=== PATIENT | female | born 1940 | race Caucasian/White ===

== ENCOUNTER 2017-06-27 07:06 | Outpatient (CLI) | payer MEDICARE, MEDICAID ==
--- NOTE | ~2017-06-27 | HEMODYNAMI ---
PATIENT:EUNICE IRELAND MEDICAL RECORD: [id number] : 38 LOCATION:[facility] ADMISSION DATE: 06/27/17 Generatedon:06/27/201710:04 Patient name: EUNICE IRELAND Patient #: [id number] SSN: : 1940 Date of study: 06/27/2017 Page: Of Hemodynamic Procedure Report Patient Data Patient Demographics Procedure consent was obtained First Name: EUNICE Gender: Female Last Name: SHU : 1940 Patient #: [id number] Age: 77 year(s) Race: Unknown Additional ID: [id number] Contact details [address]: [address] [place] [address] [facility] State: [place] City: [place] Zip code: [address] Admission Admission Data Admission Date: 06/27/2017 Admission Time: 7:06 Lab Results Lab Result Date: 06/27/2017 Lab Result Time: 0:00 Biochemistry Name Units Result Min Max BUN mg/dl 23 --(----)-* 7 18 Creatinine mg/dl 0.9 --(-*--)-- 0.6 1.3 CBC Name Units Result Min Max Hemoglobin g/dl 14.4 --(*---)-- 13.5 17.5 Procedure Procedure Types Cath Procedure Diagnostic Procedure Right Heart RHC and LHC w/Coronaries Miscellaneous Procedures Moderate Sedation up to 30 minutes Procedure Description Procedure Date Procedure Date: 06/27/2017 Procedure Start Time: 9:24 Procedure End Time: 10:03 Procedure Staff Name Function Chandra Calvillo MD Performing Physician Agnes Cochran RT Scrub Elliot Zamarripa RN Nurse Tad Mandujano RT Monitor Procedure Data Cath Procedure Fluoroscopy Diagnostic fluoroscopy Total fluoroscopy Time: 6.5 time: 6.5 min min Diagnostic fluoroscopy Total fluoroscopy dose: 372 dose: 372 mGy mGy Contrast Material Contrast Material Type Amount (ml) Isovue 300 48 Entry Location Entry Primary Successful Side Size Upsize Upsize Entry Closure Duque ccessful Closure Location (Fr) 1 (Fr) 2 (Fr) Remarks Device Remarks Femoral Right 7 Fr Manual vein Short Compression Femoral Right 5 Fr Exoseal artery Estimated blood loss: 10 ml Diagnostic catheters Device Type Used For End Catheter Placement Aiken Lifesciences 7Fr Procedure Berry Thermodilution aura Cordis 5Fr JL 4.0 Procedure Catheter (MP) Cordis 5Fr 3DRC Catheter Procedure (MP) Cordis 5Fr Pigtail Procedure Catheter (MP) Procedure Complications No complications Procedure Medications Medication Administration Route Dosage Oxygen NC 2 l/min Lidocaine 2% added to field 20 Heparin Flush Bag added to field 2 bags (1000units/500ml NS) 0.9% NaCl I.V. 100 ml/hr Versed I.V. 1 mg Fentanyl I.V. 25 mcg Hemodynamics Rest HGB: 14.4 (g/dl) Heart Rate: 90 (bpm) Oxygen Saturations Time Location Saturations Hgb (g/dl) O2 Content Use (%) (ml/L) 9:34 PCW 81.3 9:35 AO 99 9:39 RV 69.2 9:40 RA 70.9 Pressure Samples Time Site Value (mmHg) Purpose Heart Use Rate(bpm) 9:35 PA 54/21(34) Snapshot 68 9:39 RA 12/12(8) Snapshot 70 9:43 AO 137/69(95) Snapshot 72 9:47 AO 139/72(99) Snapshot 75 9:50 LV 153/9,21 EDP 73 9:51 AO 144/68(100) Pullback 75 9:51 LV 137/20,19 Pullback 75 Gradients Valve Time Site 1 Site 2 Mean SEP/DFP Peak To Heart Use (mmHg) (sec/min) Peak Rate (mmHg) (bpm) Aortic 9:51 LV AO 0 6 0 75 137/20,19 144/68(100) Thermodilution Cardiac Output Time Cardiac Output (l/min) Use 9:37 2.36 l/m 9:38 2.37 l/m Calculations Vascular Value Indexed CO SV CO CI Resistance (dyne) values (ml/beat) (l/min) (l/(min*m)) TSVR 3382.66 Thermal 32.85 2.37 SVR 3128.96 TPVR 1152.22 TPVR/TSVR 0.34 Source Thermal Systolic Diastolic Ejection Regurgitation SW SWI Vol. Vol. (%) (%) Right 12.33 Source Thermal Content (ml/l) O2 Difference (ml/l) O2 SA 193.88 SA-MV(AV) 55.03 O2 MV 138.85 PV-PA(VA) Valve P-P Mean Valve Index Valve Source Name Gradient Area Flow (cm2) Aortic 0 0 404.97 Thermal 0 0 Snapshots Thermal Samples Pre Cath Intra NCS Post Cath Vital Signs Time Heart Resp SPO2 etCO2 [id number] NIBP (mmHg) Rhythm Pain Sedation Rate (ipm) (%) (mmHg) (mmHg) Status Level (bpm) 9:20:28 76 20 99 0 0 133/89(107) NSR 0 (11) 10(A) , No pain 9:25:08 72 16 97 0 0 125/65(87) NSR 0 (11) 10(A) , No pain 9:29:53 71 14 97 0 0 116/58(90) NSR 0 (11) 9(A) , No pain 9:34:29 70 14 98 0 0 116/65(92) NSR 0 (11) 9(A) , No pain 9:39:03 106 20 98 0 0 119/74(93) NSR 0 (11) 9(A) , No pain 9:43:40 75 15 98 0 0 121/67(91) NSR 0 (11) 9(A) , No pain 9:48:16 75 15 98 0 0 124/69(94) NSR 0 (11) 10(A) , No pain 9:52:53 77 16 97 0 0 126/67(99) NSR 0 (11) 10(A) , No pain 9:57:27 85 23 97 0 0 141/84(113) NSR 0 (11) 10(A) , No pain 10:02:08 74 17 95 0 0 135/77(109) NSR 0 (11) 10(A) , No pain Medications Time Medication Route Dose Verified Delivered Reason Notes Effec tiveness by by 9:18:00 Oxygen NC 2 Chanrda Buffie used for l/min Karli Zamarripa RN procedure 9:18:09 Lidocaine 2% added 20ml Chandra Chandra for local to vial Karli Calvillo MD anesthetic field RAHMAN 9:18:17 Heparin Flush added 2 Chandra Chandra used for Bag to bags Karli Calvillo MD procedure (1000units/500ml field RAHMAN NS) 9:18:28 0.9% NaCl I.V. 100 Chandra Zarate Per ml/hr Karli Zamarripa RN physician 9:24:35 Versed I.V. 1 mg Chandra Zarate for Karli Zamarripa RN sedation 9:24:42 Fentanyl I.V. 25 Chandra Zarate for mcg Karli Zamarripa RN sedation Procedure Log Time Note 8:47:47 Tad Mandujano RT(R) sent for patient. Start room use. 8:47:47 Time tracking: Regular hours 8:47:51 Plan of Care:Hemodynamics will remain stable., Cardiac rhythm will remain stable., Comfort level will be maintained., Respiratory function will remain adequate., Patient/ family verbilizes understanding of procedure., Procedure tolerated without complication., Recovers from procedure without complications.. 9:05:16 Patient received from Pre/Post Procedure Room to CCL 1 Alert and oriented. Tansferred to table in Supine position. 9:05:17 Warm blankets applied, and jemal hugger turned on for patient comfort. 9:05:17 Correct patient and procedure confirmed by team. 9:05:19 Signed procedure consent form obtained from patient. 9:05:23 ECG and BP/O2 sat monitors applied to patient. 9:18:00 Oxygen 2 l/min NC was administered by Elliot Zamarripa RN; used for procedure; 9:18:09 Lidocaine 2% 20ml vial added to field was administered by Chandra Calvillo MD; for local anesthetic; 9:18:17 Heparin Flush Bag (1000units/500ml NS) 2 bags added to field was administered by Chandra Calvillo MD; used for procedure; 9:18:28 0.9% NaCl 100 ml/hr I.V. was administered by Elliot Zamarripa RN; Per physician; 9:19:40 Vital chart was started 9:19:41 Baseline sample Acquired. 9:19:46 Rhythm: sinus rhythm 9:19:47 Full Disclosure recording started 9:19:56 H&P Date Dictated: 06/20/2017 Within 30 days and on chart., H&P Addendum completed by physician on day of procedure. (MUST COMPLETE FOR ALL OUTPATIENTS). 9:19:57 Pre-procedure instructions explained to patient. 9:19:58 Pre-op teaching completed and patient verbalized understanding. 9:20:01 Family in waiting room. 9:20:02 Patient NPO since Midnight. 9:20:04 Is the patient allergic to Iodine/contrast media? No. 9:20:05 Is patient on blood thinner?Yes 9:20:08 ACC The patient was administered the following blood thiners within the last 24 hours: ACCPlavix 9:20:10 Patient diabetic? No. 9:20:12 Patient not . Patient is over age 55. 9:20:38 Previous problem with sedation/anesthesia? No ? 9:20:40 Snore? Yes 9:20:41 Sleep apnea? No 9:20:42 Deviated septum? No 9:20:43 Opens mouth fully? Yes 9:20:44 Sticks out tongue? Yes 9:20:45 Airway obstruction? No ? 9:20:47 Dentures? No ? 9:20:57 Pre procedure: right dorsailis pedis pulse 1+ Palpable, but thready & weak; easily obliterated 9:21:00 Patient pain scale 0/10 ?. 9:21:03 IV patent on arrival in left forearm with 0.9% NaCl at [facility]. 9:21:05 Lab results completed and on chart. 9:21:08 Right groin area was prepped with chlora-prep and draped in sterile fashion 9:21:09 Alarms reviewed by R. N. 9:21:10 Sharps counted by scrub and verified by R.N. 9:21:11 --------ALL STOP TIME OUT------ 9:21:12 Final Timeout: patient, procedure, and site verified with staff and physician. All members of the team are in agreement. 9:21:14 Right groin site verified by team. 9:21:16 Physical assessment completed. ASA score P 2 - A patient with mild systemic disease as per Chandra Calvillo MD. 9:21:19 Sedation plan: IV Moderate Sedation Versed, Fentanyl 9:24:26 Use device set Femoral Dx 9:24:28 Tegaderm 4 x 4 opened to sterile field. 9:24:29 Acist Hand Control opened to sterile field. 9:24:29 Acist Manifold opened to sterile field. 9:24:31 Acist Syringe opened to sterile field. 9:24:31 Bag Decanter opened to sterile field. 9:24:31 Medline Cath Pack opened to sterile field. 9:24:32 Terumo 5Fr [place] Sheath opened to sterile field. 9:24:32 [facility] 260cm J .035 wire opened to sterile field. 9:24:33 Diagnostic Infinity 5Fr Multipack catheter opened to sterile field. 9:24:35 Procedure started. 9:24:35 Versed 1 mg I.V. was administered by Elliot Zamarripa RN; for sedation; 9::42 Fentanyl 25 mcg I.V. was administered by Elliot Zamarripa RN; for sedation; 9:24:42 Local anesthetic to right femoral artery with Lidocaine 2% by Chandra Calvillo MD.INITIAL ACCESS ONLY 9:24:54 Terumo 7Fr [place] Sheath opened to sterile field. 9:25:47 Cook 4Fr Micropuncture Set ([id number]) opened to sterile field. 9:28:00 A 7 Fr Short sheath was inserted into the Right Femoral vein 9:28:53 Micropuncture wire damaged, new micropuncture kit opened. 9:28:56 Cook 4Fr Micropuncture Set ([id number]) opened to sterile field. 9:29:16 A 5 Fr sheath was inserted into the Right Femoral artery 9:29:41 A DeepRockDrive 7Fr Berry Thermodilution aura was advanced over the wire and used for Procedure. 9:31:19 Lab Result : BUN 23 mg/dl 9:31:19 Lab Result : Hemoglobin 14.4 g/dl 9:31:19 Lab Result : Creatinine 0.9 mg/dl 9:31:59 [facility] 150cm J .025 wire opened to sterile field. 9:32:23 .025 J Wire used to advance Berry. 9:33:09 Zero performed for pressure channel P1 9:34:38 PCW saturation: 81.3% 9:35:19 AO saturation: 99% 9:37:25 Thermodilution performed using a Aiken 131F7 7.0 Fr 19-22C 10.00 mL. Injectate temperature was 17.09 C, CO: 2.36 L/min, average CO: 2.36 L/min 9:38:16 Thermodilution performed using a Aiken 131F7 7.0 Fr 19-22C 10.00 mL. Injectate temperature was 17.07 C, CO: 2.37 L/min, average CO: 2.36 L/min 9:39:55 RV saturation: 69.2% 9:40:54 RA saturation: 70.9% 9:42:00 Right heart pressures and cardiac output were obtained. 9:42:09 Catheter removed. 9:42:23 A Cordis 5Fr JL 4.0 Catheter (MP) was advanced over the wire and used for Procedure. 9:44:06 LCA angiography performed. 9:45:13 Catheter exchanged over wire. 9:45:21 A Cordis 5Fr 3DRC Catheter (MP) was advanced over the wire and used for Procedure. 9:47:37 RCA angiography performed. 9:49:08 Catheter exchanged over wire. 9:49:13 A Cordis 5Fr Pigtail Catheter (MP) was advanced over the wire and used for Procedure. 9:51:01 LV angiography performed. 9:51:02 LV gram done using GIBSON 9:51:25 EF : 25 % 9:51:35 LV hemodynamics recorded. 9:51:42 Injector settings: Ml/sec: 12, Volume: 8, 9:51:54 Catheter exchanged over wire. 9:53:08 Sheath removed intact; hemostasis achieved with Exoseal to the Right Femoral artery. 9:53:14 Procedure ended.(Physican Out) 9:53:53 Fluoroscopy time 06.50 minutes. 9:53:58 Fluoroscopy dose: 372 mGy 9:53:58 Flurop Dose total: 372 9:54:19 Contrast amount:Isovue 300 48ml. 9:54:21 Sharps counted by scrub and verified by R.N. 9:55:58 Sheath removed intact; hemostasis achieved with Manual Compression to the Right Femoral vein. 9:56:38 Insertion/operative site no bleeding no hematoma. 9:57:54 Post-op/insertion site Right Femoral artery dressed using a 4 x 4 and Tegaderm. 9:58:00 Post-op/insertion site Right Femoral vein dressed using a 4 x 4 and Tegaderm. 9:58:01 Post Procedure Pulses reassessed and unchanged 9:58:04 Post-procedure physical assessment completed. ASA score P 2 - A patient with mild systemic disease as per Chandra Calvillo MD. 9:58:06 Post procedure rhythm: unchanged. 9:58:08 Estimated blood loss: 10 ml 9:58:10 Post procedure instruction explained to patient.Patient verbalizes understanding. 9:58:11 Patient needs reinforcement of post procedure teaching. 9:58:32 Procedure type changed to Cath procedure, Diagnostic procedure, Right Heart, RHC and LHC w/Coronaries, Miscellaneous Procedures, Moderate Sedation up to 30 minutes 9:58:37 Procedure Complication : No complications 9:59:06 Cordis 5Fr Exoseal opened to sterile field. 9:59:27 Procedure and supply charges have been captured, reviewed, submitted and are correct. 10:03:28 Vital chart was stopped 10:03:29 See physician's report for complete and final results. 10:03:34 Report given to PCU. 10:03:37 Patient transfered to PCU with Bed. 10:03:39 Procedure ended. 10:03:39 Full Disclosure recording stopped 10:04:08 End room use (Document Last) Device Usage Item Name Manufacture Quantity Catalog Hospital Part Current Minima l Lot# / Number Charge Number Stock Stock Serial# Code Tegaderm 4 x 4 3M 1 [id number] 057906 316181 5 Acist Hand Acist 1 98997 798635 856774 037219 5 Control [employer] Inc Acist Manifold Acist 1 54138 779892 195407 225736 5 Medical Systems Inc Acist Syringe Acist 1 78925 625585 659529 898994 20 Medical Systems Inc Bag Decanter Microtek 1 2002S 004643 27586 668362 5 Medical Inc. Medline Cath Cardinal 1 [id number] 540937 75474 735712 5 Pack Health Terumo 5Fr Terumo 1 IQP514 051777 040563 136270 [address] [place] [address] [facility] [address] [facility] 1 061104 008137 155935 651261 30 J .035 wire Diagnostic Cardinal 1 CT5163 486007 24233 310115 30 Infinity 5Fr Health Multipack catheter Terumo 7Fr Terumo 1 [id number] 144114 093299 068325 5 [place] Sheath Cook 4Fr Cook Medical 2 [id number] 689208 768669 079912 5 Micropuncture Set ([id number]) Aiken Aiken 1 131F7P [id number] 20969 069666 3 Lifesciences Lifesciences 7Fr Berry Thermodilution aura [facility] 150cm [facility] 1 554631 521840 406695 556813 2 J .025 wire Cordis 5Fr JL Cardinal 1 189727 5 4.0 Catheter Health () Cordis 5Fr Cardinal 1 302364 5 3DRC Catheter Health (MP) Cordis 5Fr Cardinal 1 302590 5 Pigtail Health Catheter (MP) Cordis 5Fr Cardinal 1 EX500 428591 418523 862966 10 [facility] Signature Audit [place] Stage Time Signature Unsigned Intra-Procedure 06/27/2017 Tad Mandujano 10:04:24 AM RT(R) Signatures Monitor : Tad Mandujano RT Signature : Date : Time : [address] [id number]
[2017-06-27] MEDS ORDERED: BENAZEPRIL HCL10 MG PO (07:13)
[2017-06-27] MEDS ORDERED: VISTARIL25 MG PO (07:14)
[2017-06-27] MEDS ORDERED: LIPITOR40 MG PO (07:14)
[2017-06-27] MEDS ORDERED: PLAVIX75 MG PO (07:14)
[2017-06-27] MEDS ORDERED: EPITOL200 MG PO (07:15)
[2017-06-27] MEDS ORDERED: COREG 3.1253.125 MG PO (07:15)
[2017-06-27] MEDS ORDERED: PROAIR HFA8.5 GM INH (07:15)
[2017-06-27 07:29] VITALS: BP 135/65; BMI 23.0
[2017-06-27 07:36] LABS: BASOPHILS 0.2 % (0-2); EOSINOPHILS 3.6 % (0-7); HEMATOCRIT 42.8 % (36.0-48.0); HEMOGLOBIN 14.4 g/dL (12-16); IMMATURE GRANULOCYTES 0.2 % (0-5); LYMPHOCYTES 26.3 % (15-50); MCH 33.1 pg (26.0-34.0); MCHC 33.6 g/dL (31.0-37.0); MCV 98.4 fL (80.0-100.0); MEAN PLATELET VOLUME 10.5 fL (7.4-10.4); MONOCYTES 10.6 % (2-11); NEUTROPHILS 59.1 % (40-80); PLATELET COUNT 162 10x3/uL (130-400); RBC 4.35 10x6/uL (4.00-5.40); RDW 12.6 % (11.5-14.5); WBC 5.6 10x3/uL (4.8-10.8)
[2017-06-27 08:23] LABS: CALCIUM 8.6 mg/dL (8.5-10.1); CARBON DIOXIDE 24.1 mmol/L (21.0-32.0); CREATININE - SERUM 0.9 mg/dL (0.6-1.3); POTASSIUM - SERUM 4.1 mmol/L (3.5-5.1)
--- NOTE | 2017-06-27 10:37 | NUR ---
DR. HOWE AT BEDSIDE SPEAKING WITH PT AND FAMILY. 2L NC, NO RESP DISTRESS NOTED. RIGHT GROIN 5F EXOSEAL CDI, NO BLEEDING OR HEMATOMA NOTED. NO C/O PAIN OR NAUSEA. VSS. CALL LIGHT WITHIN REACH.
--- NOTE | 2017-06-27 10:52 | NUR ---
2L NC, NO RESP DISTRESS NOTED. RIGHT GROIN 5F EXOSEAL CDI, NO BLEEDING OR HEMATOMA NOTED. C/O HIP PAIN, DR. HOWE ELEVATED HOB AND KNEES. NO OTHER C/O. SANDWICH TRAY GIVEN. VSS. WILL CONTINUE TO MONITOR.
--- NOTE | 2017-06-27 11:10 | NUR ---
1110 DRESSING TO RIGHT GROIN IS CDI, AREA IS SOFT AND NONTENDER. PT WITH KNEE FLEXED, INSTRUCTED PT TO KEEP RIGHT LEG STRAIGHT. VSS, NO FAMILY AT BEDSIDE, CALL LIGHT IS IN REACH.
--- NOTE | 2017-06-27 11:15 | NUR ---
1115 DR HOWE AT BEDSIDE, TALKING WITH PT. DR HOWE RAISED HOB 90 DEGREES, STATES PT CAN SIT UPRIGHT. REQUESTED APPOINTMENT BE SCHEDULED WITH DR PECK ON SUNDAY AND ALSO PT TO SEE HIM ON SUNDAY.
--- NOTE | 2017-06-27 11:20 | NUR ---
[address] PECK'S NURSE, ANEESH WHO REQUESTS TO SPEAK WITH DR HOWE REGARDING APPOINTMENT FOR PT WITH DR PECK THERE ARE NO OPENINGS FOR SUNDAY APPOINTMENT. STATED I WOULD PAGE HIM AND RELAY INFORMATION. [address]PO[address] HOWE WHO STATES TO SCHEDULE PT TO BE SEEN IN DR HOWE'S OFFICE SUNDAY AND HE WILL CALL DR PECK ON SUNDAY. CALLED ANEESH AT DR PECK'S OFFICE TO RELAY THIS INFORMATION.
--- NOTE | 2017-06-27 11:35 | NUR ---
1135 PT SITTING UPRIGHT IN BED, EATING SANDWICH, DENIES ANY C/O. DRESSING TO RIGHT GROIN IS CDI, AREA IS SOFT AND NONTENDER. NO FAMILY AT BEDSIDE, CALL LIGHT IS IN REACH.
--- NOTE | 2017-06-27 12:00 | NUR ---
1200 ASSISTED PT ONTO BEDPAN, PT HAD LARGE BM AND VOIDED QS. DRESSING TO RIGHT GROIN REMAINS STABLE, PT DENIES ANY C/O.
--- NOTE | 2017-06-27 12:45 | NUR ---
1245 IV DC'D WITH CATH INTACT, ASSISTED PT WITH DRESSING FOR DC TO HOME.
--- NOTE | 2017-06-27 13:05 | NUR ---
1300 PT'S FAMILY HERE, REVIEWED DC INSTRUCTIONS WITH PT AND FAMILY WHO VERBALIZE UNDERSTANDING. WRITTEN COPIES PROVIDED. PT DENIES ANY C/O UPON DC. DRESSING TO RIGHT GROIN REMAINS STABLE WITH NO BLEEDING OR HEMATOMA NOTED.
== END 2017-06-27 13:00 | disposition home or self-care (01) ==
LOC: D.CATH 07:06
PROVIDERS: Internal Medicine Cardiovascular Disease
DX: I25.10 Atherosclerotic heart disease of native coronary artery without angina pectoris (principal); I34.0 Nonrheumatic mitral (valve) insufficiency; I50.9 Heart failure, unspecified; I48.91 Unspecified atrial fibrillation; I63.9 Cerebral infarction, unspecified; R07.9 Chest pain, unspecified; Z01.812 Encounter for preprocedural laboratory examination

== ENCOUNTER 2017-07-12 07:06 | Outpatient (CLI) | payer MEDICARE, MEDICAID ==
--- NOTE | ~2017-07-12 | HEMODYNAMI ---
PATIENT:EUNICE IRELAND MEDICAL RECORD: [id number] : 38 LOCATION:[facility] ADMISSION DATE: 07/12/17 Generatedon:07/12/201710:45 Patient name: EUNICE IRELAND Patient #: [id number] SSN: : 1940 Date of study: 07/12/2017 Page: Of Hemodynamic Procedure Report Patient Data Patient Demographics Procedure consent was obtained First Name: EUNICE Gender: Female Last Name: SHU : 1940 Patient #: [id number] Age: 77 year(s) Race: Unknown Additional ID: [id number] Contact details Address: [address] [place] [address] [facility] State: [place] City: [place] Zip code: [address] Past Medical History Allergies Allergen Reaction Date Comments Reported Bactrim 07/12/2017 Admission Admission Data Admission Date: 07/12/2017 Admission Time: 7:06 Procedure Procedure Types Cath Procedure PCI Procedure Coronary Stent Initial Miscellaneous Procedures Moderate Sedation up to 30 minutes Procedure Description Procedure Date Procedure Date: 07/12/2017 Procedure Start Time: 9:58 Procedure End Time: 10:37 Procedure Staff Name Function Yolette Morales RT Monitor Elliot Zamarripa RN Nurse Dung De La Cruz RT Scrub Chandra Calvillo MD Performing Physician Procedure Data Cath Procedure Fluoroscopy Diagnostic fluoroscopy Total fluoroscopy Time: 7.3 time: 7.3 min min Diagnostic fluoroscopy Total fluoroscopy dose: 787 dose: 787 mGy mGy Contrast Material Contrast Material Type Amount (ml) Isovue 300 59 Entry Location Entry Primary Successful Side Size Upsize Upsize Entry Closure Duque ccessful Closure Location (Fr) 1 (Fr) 2 (Fr) Remarks Device Remarks Femoral Left 6 Fr Mechanical artery Short Compression Estimated blood loss: 5 ml Procedure Complications No complications Procedure Medications Medication Administration Route Dosage Lidocaine 2% added to field 20 Heparin Flush Bag added to field 2 bags (1000units/500ml NS) Oxygen NC 2 l/min 0.9% NaCl I.V. 100 ml/hr Versed I.V. 1 mg Fentanyl I.V. 25 mcg Angiomax (bolus) I.V. 9 ml Angiomax Drip I.V. drip 21 ml/hr (250mg/50ml NS) (Standard) Angiomax Drip 21 ml/hr (250mg/50ml NS) (Standard) Hemodynamics Rest Heart Rate: 87 (bpm) Pressure Samples Time Site Value (mmHg) Purpose Heart Use Rate(bpm) 10:25 AO 147/75(104) Snapshot 79 Snapshots Pre Cath Intra NCS Post Cath Vital Signs Time Heart Resp SPO2 etCO2 NIBP (mmHg) Rhythm Pain Sedation Rate (ipm) (%) (mmHg) Status Level (bpm) 9:39:25 94 26 96 0 138/86(119) NSR 0 (11) 10(A) , No pain 9:43:37 86 27 95 18.1 129/80(105) NSR 0 (11) 10(A) , No pain 9:47:51 74 16 96 15.1 131/67(97) NSR 0 (11) 10(A) , No pain 9:52:03 88 14 95 16.6 132/72(105) NSR 0 (11) 10(A) , No pain 9:56:13 73 15 95 16.6 123/72(98) NSR 0 (11) 10(A) , No pain 10:00:19 91 30 96 16.6 133/78(102) NSR 0 (11) 10(A) , No pain 10:04:33 86 17 96 0 120/63(91) NSR 0 (11) 9(A) , No pain 10:08:49 67 16 95 17.3 117/57(85) NSR 0 (11) 9(A) , No pain 10:12:59 64 16 94 0 119/60(91) NSR 0 (11) 9(A) , No pain 10:17:11 67 16 95 19.6 119/61(85) NSR 0 (11) 9(A) , No pain 10:21:16 82 16 95 21.1 118/72(96) NSR 0 (11) 9(A) , No pain 10:25:24 67 18 95 21.1 111/68(99) NSR 0 (11) 10(A) , No pain 10:29:30 86 16 95 22.6 122/66(91) NSR 0 (11) 10(A) , No pain 10:33:42 79 16 96 16.6 120/63(80) NSR 0 (11) 10(A) , No pain Medications Time Medication Route Dose Verified Delivered Reason Notes Effectiveness by by 9:41:34 Lidocaine 2% added to field 20ml Chandra Chandra for local vial Karli Calvillo MD anesthetic 9:41:40 Heparin Flush added to field 2 Chandra Chandra used for Bag bags Karli Calvillo MD procedure (1000units/500ml NS) 10:00:30 Oxygen NC 2 Chandra Buffie used for l/min Karli Zamarripa RN procedure 10:00:38 0.9% NaCl I.V. 100 Chandra Buffie Per physici an ml/hr Karli Zamarripa RN, MD 10:00:43 Versed I.V. 1 mg Chandra Buffie for sedatio n Karli Zamarripa RN, MD 10:00:50 Fentanyl I.V. 25 Chandra Buffie for sedatio n mcg Karli Zamarripa RN, MD 10:09:32 Angiomax (bolus) I.V. 9 ml Chandra Buffie for Karli Zamarripa RN anticoagulation 10:10:44 Angiomax Drip I.V. drip 21 Chandra Buffie for (250mg/50ml NS) ml/hr Karli Zamarripa RN anticoagulation (Standard) 10:32:13 Angiomax Drip I.V. 21 Chandra Buffie for (250mg/50ml NS) drip-discontinued ml/hr Karli Zamarripa RN anticoagulation (Standard) Procedure Log Time Note 9:13:54 Time tracking: Regular hours 9:13:57 Plan of Care:Hemodynamics will remain stable., Cardiac rhythm will remain stable., Comfort level will be maintained., Respiratory function will remain adequate., Patient/ family verbilizes understanding of procedure., Procedure tolerated without complication., Recovers from procedure without complications.. 9:17:28 Yolette Counts RT(R) sent for patient. Start room use. 9:28:54 Patient received from Pre/Post Procedure Room to CCL 2 Alert and oriented. Tansferred to table in Supine position. 9:28:55 Warm blankets applied, and jemal hugger turned on for patient comfort. 9:38:14 Correct patient and procedure confirmed by team. 9:38:16 Signed procedure consent form obtained from patient. 9:38:17 Vital chart was started 9:38:17 ECG and BP/O2 sat monitors applied to patient. 9:41:34 Lidocaine 2% 20ml vial added to field was administered by Chandra Calvillo MD; for local anesthetic; 9:41:40 Heparin Flush Bag (1000units/500ml NS) 2 bags added to field was administered by Chandra Calvillo MD; used for procedure; 9:44:11 Baseline sample Acquired. 9:44:16 Rhythm: sinus rhythm 9:44:18 Full Disclosure recording started 9:45:28 H&P Date Dictated: 07/02/2017 Within 30 days and on chart., H&P Addendum completed by physician on day of procedure. (MUST COMPLETE FOR ALL OUTPATIENTS). 9:45:30 Pre-procedure instructions explained to patient. 9:45:31 Pre-op teaching completed and patient verbalized understanding. 9:45:33 Family in waiting room. 9:45:35 Patient NPO since Midnight. 9:46:50 Patient allergic to Bactrim 9:46:53 Is the patient allergic to Iodine/contrast media? No. 9:46:56 Is patient on blood thinner?Yes 9:46:59 ACC The patient was administered the following blood thiners within the last 24 hours: ACCAspirin, ACCPlavix 9:47:00 Patient diabetic? No. 9:47:03 Previous problem with sedation/anesthesia? No ? 9:47:13 Snore? No 9:47:17 Sleep apnea? No 9:47:18 Deviated septum? No 9:47:19 Opens mouth fully? Yes 9:47:20 Sticks out tongue? Yes 9:47:24 Airway obstruction? Yes COPD 9:47:27 Dentures? No ? 9:47:31 Pre procedure: left dorsailis pedis pulse 2+ Normal; easily identifiable; not easily obliterated 9:47:33 Patient pain scale 0/10 ?. 9:47:42 IV patent on arrival in left hand with 0.9% NaCl at O. 9:47:49 Lab results completed and on chart. 9:48:12 Alarms reviewed by RYanique Nichols 9:48:12 Left groin area was prepped with chlora-prep and draped in sterile fashion 9:48:13 Sharps counted by scrub and verified by R.N. 9:48:23 Use device set Femoral PCI 9:48:24 Acist Hand Control opened to sterile field. 9:48:24 Acist Syringe opened to sterile field. 9:48:25 Bag Decanter opened to sterile field. 9:48:26 Terumo 6Fr Austin Sheath opened to sterile field. 9:48:26 Medline Cath Pack opened to sterile field. 9:48:27 Merit BasixCompak Inflation Kit opened to sterile field. 9:48:27 [facility] Charles 260cm J .035 wire opened to sterile field. 9:48:28 Tegaderm 4 x 4 opened to sterile field. 9:48:28 Acist Manifold opened to sterile field. 9:54:33 Medtronic Launcher 6Fr EBU 3.5 SH guide catheter opened to sterile field. 9:54:40 Katy Bahu Choice PT Extra Support 182cm wire opened to sterile field. 9:55:48 Copilot Bleedback Control Valve opened to sterile field. 9:57:49 Final Timeout: patient, procedure, and site verified with staff and physician. All members of the team are in agreement. 9:57:50 Left groin site verified by team. 9:57:54 Physical assessment completed. ASA score P 2 - A patient with mild systemic disease as per Chandra Calvillo MD. 9:57:57 Sedation plan: IV Moderate Sedation Versed, Fentanyl 9:58:20 Procedure started. 9:58:53 Local anesthetic to left femerol artery with Lidocaine 2% by Chandra Calivllo MD.INITIAL ACCESS ONLY 10:00:30 Oxygen 2 l/min NC was administered by Elliot Zamarripa RN; used for procedure; 10:00:38 0.9% NaCl 100 ml/hr I.V. was administered by Elliot Zamarripa RN; Per physician; 10:00:43 Versed 1 mg I.V. was administered by Elliot Zamarripa RN; for sedation; 10:00:50 Fentanyl 25 mcg I.V. was administered by Elliot Zamarripa RN; for sedation; 10:02:00 Access obtained with 4Fr micropunture. 10:02:08 A 6 Fr Short sheath was inserted into the Left Femoral artery 10:02:24 Zero performed for pressure channel P1 10:09:32 Angiomax (bolus) 9 ml I.V. was administered by Elliot Zamarripa RN; for anticoagulation; 10:10:44 Angiomax Drip (250mg/50ml NS) (Standard) 21 ml/hr I.V. drip was administered by Elliot Zamarripa RN; for anticoagulation; 10:11:20 6 Fr EBU 3.5 SH guide catheter was inserted over the wire 10:13:08 Choice PT ES wire advanced. 10:20:38 Inflation Number: 1 A Kimo RX 3.0 x 18 stent was prepped and advanced across the LMCA. The stent was deployed at 18 ALE for 0:13 (min:sec). 10:21:42 Stent catheter was removed intact over wire. 10:24:23 Inflation number: 2 A NC Euphora 3.5 x 8 balloon was prepped and advanced across the LMCA, then inflated to 10 ALE for 0:14 (min:sec). 10:24:39 Balloon removed over the wire. 10:31:09 Guide catheter removed. 10:31:09 Wire removed. 10:31:17 Cordis 6Fr Exoseal opened to sterile field. 10:31:24 Sheath removed intact; hemostasis achieved with Mechanical Compression to the Left Femoral artery. 10:31:26 Procedure ended.(Physican Out) 10:32:00 Fluoroscopy time 07.30 minutes. 10:32:04 Fluoroscopy dose: 787 mGy 10:32:04 Flurop Dose total: 787 10:32:07 Contrast amount:Isovue 300 59ml. 10:32:08 Sharps counted by scrub and verified by R.N. 10:32:10 Insertion/operative site no bleeding no hematoma. 10:32:13 Angiomax Drip (250mg/50ml NS) (Standard) 21 ml/hr I.V. drip-discontinued was administered by Elliot Zamarripa RN; for anticoagulation; 10:32:14 Post-op/insertion site Left Femoral artery dressed using a 4 x 4 and Tegaderm. 10:32:17 Post left femerol artery:stable, clean and dry 10:32:19 Post Procedure Pulses reassessed and unchanged 10:32:25 Post-procedure physical assessment completed. ASA score P 2 - A patient with mild systemic disease as per Chandra Calvillo MD. 10:32:28 Post procedure rhythm: unchanged. 10:32:31 Estimated blood loss: 5 ml 10:32:32 Post procedure instruction explained to patient.Patient verbalizes understanding. 10:32:33 Patient needs reinforcement of post procedure teaching. 10:32:49 Procedure type changed to Cath procedure, PCI procedure, Coronary Stent Initial, Miscellaneous Procedures, Moderate Sedation up to 30 minutes 10:32:54 Procedure Complication : No complications 10:32:56 See physician's report for complete and final results. 10:33:25 Cook 4Fr Micropuncture ([id number]) opened to sterile field. 10:33:58 Procedure and supply charges have been captured, reviewed, submitted and are correct. 10:36:04 Femstop placed over the left femerol artery at 140 mmHg. Hemostasis achieved. 10:36:21 [facility] Femstop Arch Gold opened to sterile field. 10:37:14 Vital chart was stopped 10:37:19 Report given to ED. 10:37:22 Patient transfered to Pre/Post Procedure Room with Stretcher. 10:37:24 Full Disclosure recording stopped 10:37:24 Procedure ended. 10:37:33 End room use (Document Last) Intervention Summary Intervention Notes Time ActionType Lesion and Equipment Action# Pressure Duration Attributes Used 10:20:38 Place stent LMCA Conway RX 1 18 00:13 3.0 x 18 stent 10:24:23 Inflate LMCA NC 2 10 00:14 balloon Euphora 3.5 x 8 balloon Device Usage Item Name Manufacture Quantity Catalog Number [facility] [place], [place] Lot# / Charge Number Stock Stock Serial# Code Acist Syringe Acist 1 04123 770670 247713 365675 20 Medical Systems Inc Acist Hand Acist 1 08074 422887 951134 745453 5 Control Medical Systems Inc Bag Decanter Microtek 1 2002S 860894 28570 044484 5 Medical Inc. Medline Cath Cardinal 1 [id number] 056952 41551 489900 5 Pack Health Terumo 6Fr Terumo 1 [id number] 096273 592124 939523 [address] [facility] [address] [facility] 1 [id number] 306952 300045 609539 30 J .035 wire Merit Merit 1 MI1028 151250 663007 187016 15 BasixCompak Medical Inflation Kit Acist Acist 1 12204 060902 367725 014659 5 Adsit Media Technology Medical Systems Inc Tegaderm 4 x 3M 1 1626W 228054 186935 635852 5 4 Medtronic Medtronic 1 [id number] 057374 71617 071667 1 Launcher 6Fr EBU 3.5 SH guide catheter Katy Sci Katy 1 [id number] 311078 409713 739812 5 Choice PT Scientific Extra Support 182cm wire Copilot Mccabe 1 [id number] 025901 208130 559712 5 Bleedback Vascular Control Valve Kimo RX 3.0 x Medtronic 1 [id number] 265413 9688407 498089 5 [id number] 18 stent NC Euphora Medtronic 1 [id number] 808226 225361 968900 1 [id number] 3.5 x 8 balloon Cordis 6Fr Cardinal 1 EX600 929695 952691 821174 10 Qnect, llc Health Cook 4Fr Cook Medical 1 [id number] 149130 626370 563513 5 Micropuncture ([id number]) [facility] 1 R13075 466742 531405 870469 5 Femstop Arch Gold Signature Audit [place] Stage Time Signature Unsigned Intra-Procedure 07/12/2017 Yolette De La Vega Counts 10:37:44 AM Counts RT(R) RT(R) 07/12/2017 10:43:34 AM Intra-Procedure 07/12/2017 Yolette 10:45:04 AM Counts RT(R) Signatures Monitor : Yolette Signature : Counts RT Date : Time : [id number] [place] [address]
[~2017-07-12 07:06] MED LIST: BENAZEPRIL HCL10 MG PO; COREG 3.1253.125 MG PO; EPITOL200 MG PO; LIPITOR40 MG PO; PLAVIX75 MG PO; PROAIR HFA8.5 GM INH; VISTARIL25 MG PO
[2017-07-12 08:39] VITALS: BP 145/72; BMI 23.0
[2017-07-12 08:53] LABS: BASOPHILS 0.2 % (0-2); IMMATURE GRANULOCYTES 0.4 % (0-5); LYMPHOCYTES 25.2 % (15-50); MCHC 33.3 g/dL (31.0-37.0); MCV 99.1 fL (80.0-100.0); MEAN PLATELET VOLUME 10.3 fL (7.4-10.4); MONOCYTES 8.5 % (2-11); NEUTROPHILS 62.7 % (40-80); PLATELET COUNT 137 10x3/uL (130-400); RBC 4.24 10x6/uL (4.00-5.40); RDW 12.9 % (11.5-14.5); WBC 4.9 10x3/uL (4.8-10.8)
[2017-07-12 09:03] LABS: ANION GAP 11.4 mmol/L (8-16); CALCIUM 9.2 mg/dL (8.5-10.1); CARBON DIOXIDE 29.9 mmol/L (21.0-32.0); POTASSIUM - SERUM 4.3 mmol/L (3.5-5.1)
[2017-07-12 12:00] VITALS: BP 130/61
[2017-07-12 16:00] VITALS: BP 147/60
[2017-07-12 21:38] VITALS: BP 117/59
[2017-07-13 01:53] VITALS: BP 113/59
[2017-07-13 04:16] VITALS: BP 123/62
[2017-07-13] MEDS ORDERED: PLAVIX75 MG PO (08:04)
[2017-07-13 08:46] VITALS: BP 152/77
[2017-07-13 11:59] VITALS: BP 126/56
== END 2017-07-13 15:54 | disposition home or self-care (01) ==
LOC: D.CATH 07:06 → D.M2 11:45 → D.CATH 07-13 15:54
PROVIDERS: Internal Medicine Cardiovascular Disease
DX: I25.5 Ischemic cardiomyopathy (principal); I25.10 Atherosclerotic heart disease of native coronary artery without angina pectoris; Z01.812 Encounter for preprocedural laboratory examination

== ENCOUNTER → 2017-10-02 09:07 | Outpatient (CLI) | payer MEDICARE ==
--- NOTE | ~2017-10-02 | EC ---
PATIENT:CORTNEY IRELAND DATE OF SERVICE: 10/02/17 SEX: F MEDICAL RECORD: [id number] DATE OF : 38 [facility]GE [facility] PATIENT: 77 ADMISSION DATE: 10/02/17 REFERRING PHYSICIAN: INTERPRETING PHYSICIAN: OSWALDO HOWE MD ECHOCARDIOGRAM REPORT ECHO CHARGES 4 ECHO COMPLETE CLINICAL DIAGNOSIS: CAD/ISCHEMIC CARDIOMYOPATHY ECHOCARDIOGRAPHIC MEASUREMENTS (adult normal given) AC root (d.<3.7cm) 3.2 cm LV Septum d (<1.2 cm> 1.3 cm Valve Excursion 1.6 cm LV Septum (systole) 1.4 cm Left Atria (s.<4.0cm> 3.6 cm LVPW d(<1.2cm) 1.2 cm RV (d.<2.3cm) 2.7 cm LVPW (sytole) 1.4 cm LV diastole(<5.6CM) 5.9 cm MV E-F(>70mm/sec) cm LV systole 5.2 cm LVOT Diameter 1.7 cm MV exc.(>10mm) 1.2 cm Est.ejection fraction (50-75%) % Pericardial Effusion Y DOPPLER: LVIT cm/sec A 74.0 cm/sec E 88.0 cm/sec LA cm/sec RVSP 28 mmHg LVOT 88 cm/sec AOP1/2T m/s Asc. Ao 122 cm/sec RVOT 82 cm/sec RA cm/sec PA 105 cm/sec AV Gradient Peak 5.99 mmHg AV Mean 3.26 mmHg AV Area 1.5 cm MV Gradient Peak 5.05 mmHg MV Mean 1.74 mmHg MV Area cm COMMENTS: Milk Drier: 2 JYOTSNA ABEBE Building Mover: 4 Dr. Howe TAPE# PACS DATE OF SERVICE: 10/02/2017 PROCEDURE: Transthoracic echocardiogram. FINDINGS: 1. Left ventricle was shown to be mildly dilated with global hypokinesis. The patient does have more significant wall motion abnormalities in the inferior basilar segment where there is akinetic segment. The overall ejection fraction is 25% to 30%. 2. The left atrium is measured and shown to be normal size, normal function. ECHOCARDIOGRAM REPORT [id number] CORTNEY IRELAND 3. The inflow characteristics across the mitral valve are shown to have normal inflow pattern. 4. The aortic valve is mildly sclerotic with trace aortic insufficiency with no evidence of significant aortic stenosis. 5. The mitral valve is shown to have a severe area of centralized mitral regurgitation with proximal flow convergence. 6. Tricuspid valve has trace tricuspid regurgitation. We were unable to get a good envelope for estimation of the right ventricular systolic pressure. 7. The right ventricle is mildly enlarged. 8. The right atrium is mildly dilated. CONCLUSIONS: The patient has evidence of dilated cardiomyopathy with ejection fraction of 25% with severe mitral regurgitation. TRANSINT:[id number] Voice Confirmation ID: [id number] DOCUMENT ID: [id number] 10/08/2017 Edited to correct date of service, dmm. OSWALDO HOWE MD at 1038 CC: [id number] DICTATION DATE: 10/03/17 0841 [employer] TALEO MANAGER: 10/03/17 1059 DEP CLI 10/02/17 [facility] [address] [place] [address]
[~2017-10-02 09:07] MED LIST changes: +FUROSEMIDE20 MG PO; +KLOR-CON 1010 MEQ PO
== END | disposition home or self-care (01) ==
LOC: D.ECHO 09:07
DX: I25.10 Atherosclerotic heart disease of native coronary artery without angina pectoris (principal); I25.5 Ischemic cardiomyopathy

== ENCOUNTER 2017-10-31 07:25 | Outpatient (CLI) | payer MEDICARE ==
[~2017-10-31] VITALS: Ht 162.6 cm; Wt 59.1 kg
--- NOTE | ~2017-10-31 | HEMODYNAMI ---
PATIENT:CORTNEY IRELAND MEDICAL RECORD: [id number] : 38 LOCATION:[facility] ADMISSION DATE: 10/31/17 Generatedon:10/31/201710:20 Patient name: CORTNEY IRELAND Patient #: [id number] SSN: : Date of study: 10/31/2017 Page: Of Hemodynamic Procedure Report Patient Data Patient Demographics Procedure consent was obtained First Name: CORTNEY Gender: Female Last Name: SHU : 1940 [facility] Initial: EUNICE Age: 77 year(s) Patient #: [id number] Race: Unknown Additional ID: [id number] Contact details Address: [address] [place] [address] [facility] State: [place] City: [place] Zip code: [address] Past Medical History Allergies Allergen Reaction Date Comments Reported Bactrim 07/12/2017 Other allergy 10/31/2017 BACTRIM Admission Admission Data Admission Date: 10/31/2017 Admission Time: 7:25 Height (in.): 5.4 BSA: 0.27 (m2) Height (cm.): 13.72 BMI: 3086.18 (kg/m2) Weight (lbs.): 128 Weight (kg.): 58.06 Lab Results Lab Result Date: 10/31/2017 Lab Result Time: 0:00 Biochemistry Name Units Result Min Max BUN mg/dl 29 --(----)-* 7 18 Creatinine mg/dl 1.1 --(--*-)-- 0.6 1.3 CBC Name Units Result Min Max Hemoglobin g/dl 13.9 --(*---)-- 13.5 17.5 Procedure Procedure Types Cath Procedure PCI Procedure Coronary Stent Coronary Stent Initial x2 Miscellaneous Procedures Moderate Sedation up to 30 minutes Procedure Description Procedure Date Procedure Date: 10/31/2017 Procedure Start Time: 9:26 Procedure End Time: 10:19 Procedure Staff Name Function Chandra Calvillo MD Performing Physician Dung De La Cruz RT Monitor Agnes Cochran RT Scrub Elliot Zamarripa RN Nurse Procedure Data Cath Procedure Fluoroscopy Diagnostic fluoroscopy Total fluoroscopy Time: 12 time: 12 min min Diagnostic fluoroscopy Total fluoroscopy dose: 747 dose: 747 mGy mGy Contrast Material Contrast Material Type Amount (ml) Isovue 300 78 Entry Location Entry Primary Successful Side Size Upsize Upsize Entry Closure Duque ccessful Closure Location (Fr) 1 (Fr) 2 (Fr) Remarks Device Remarks Radial Right 6 Fr Mechanical artery Short Compression Estimated blood loss: 10 ml Procedure Medications Medication Administration Route Dosage Oxygen NC 2 l/min Lidocaine 2% added to field 20 Heparin Flush Bag added to field 2 bags (1000units/500ml NS) 0.9% NaCl I.V. 100 ml/hr Radial Cocktail added to field 1 syringe (Verapomil 2mg/Nitro 400mcg/Heparin 1500units) Versed I.V. 1 mg Fentanyl I.V. 25 mcg Radial Cocktail I.A. 1 syringe (Verapomil 2mg/Nitro 400mcg/Heparin 1500units) Angiomax (bolus) I.V. 9 ml Angiomax Drip I.V. drip 21 ml/hr (250mg/50ml NS) (Renal) Nitroglycerin IC/IA I.C. 150 mcg Hemodynamics Rest BSA: 0.27 (m2) HGB: 13.9 (g/dl) O2 Consumption: Estimated: 23.58 (ml/min) O2 Con sumption indexed: Estimated:87.33 (ml/min/m) Heart Rate: 62 (bpm) Snapshots Pre Cath Intra NCS Post Cath Vital Signs Time Heart Resp SPO2 etCO2 NIBP (mmHg) Rhythm Pain Sedation Rate (ipm) (%) (mmHg) Status Level (bpm) 9:18:40 64 59 100 24.9 141/71(98) NSR 0 (11) 10(A) , No pain 9:23:21 63 19 100 28 138/73(112) NSR 0 (11) 10(A) , No pain 9:27:59 64 14 100 35.6 120/66(93) NSR 0 (11) 10(A) , No pain 9:32:44 62 14 100 34 91/40(69) NSR 0 (11) 9(A) , No pain 9:37:17 61 14 99 34.8 95/48(65) NSR 0 (11) 9(A) , No pain 9:41:49 59 15 98 34.8 104/49(69) NSR 0 (11) 9(A) , No pain 9:46:23 60 14 99 34 99/52(77) NSR 0 (11) 9(A) , No pain 9:50:58 56 16 100 18.1 109/46(78) NSR 0 (11) 9(A) , No pain 9:55:34 67 14 100 1.5 104/51(74) NSR 0 (11) 9(A) , No pain 10:00:40 68 15 99 31 136/61(105) NSR 0 (11) 9(A) , No pain 10:05:18 64 15 98 28 114/55(83) NSR 0 (11) 10(A) , No pain 10:10:15 29.5 No Cuff NSR 0 (11) 10(A) , No pain 10:14:29 0 No Cuff NSR 0 (11) 10(A) , No pain 10:19:10 0 No Cuff NSR 0 (11) 10(A) , No pain Medications Time Medication Route Dose Verified Delivered Reason Note s Effectiveness by by 9:13:18 Oxygen NC 2 l/min Chandra Buffie used for Karli chapman MD 9:13:24 Lidocaine 2% added 20ml Chandra Chandra for local to vial Karli Calvillo MD anesthetic field RAHMAN 9:13:32 Heparin Flush added 2 bags Chandra Chandra used for Bag to Karli Calvillo MD procedure (1000units/500ml field RAHMAN NS) 9:13:40 0.9% NaCl I.V. 100 Chandra Buffie Per physician ml/hr Karli Zamarripa RN, MD 9:23:43 Radial Cocktail added 1 Chandra Chandra for (Verapomil to syringe Karli Calvillo MD vasodilation 2mg/Caitlin nesbitt MD 400mcg/Heparin 1500units) 9:26:10 Versed I.V. 1 mg Madi Madi for anxiety Debby Guardado RN, RN 9:26:20 Fentanyl I.V. 25 mcg Madi Madi for sedation Debby Guardado RN, RN 9:34:02 Radial Cocktail I.A. 1 Madi Chandra for (Verapomil syringe Debby Calvillo MD vasodilation 2mg/Nitro RN 400mcg/Heparin 1500units) 9:34:29 Angiomax (bolus) I.V. 9 ml Madi Madi for Debby Guardado anticoagulation RN RN 9:37:27 Angiomax Drip I.V. 21 Madi Madi for (250mg/50ml NS) drip ml/hr Debby Guardado anticoagulation (Renal) RN RN 10:02:14 Nitroglycerin I.C. 150 mcg Madi Artis for IC/IA Debby Calvillo MD vasodilation strategic insights lead Log Time Note 8:39:16 Informed consent obtained and on chart 8:42:50 Dung De La Cruz RT(R) sent for patient. Start room use. 8:42:50 Time tracking: Regular hours 8:42:55 Plan of Care:Hemodynamics will remain stable., Cardiac rhythm will remain stable., Comfort level will be maintained., Respiratory function will remain adequate., Patient/ family verbilizes understanding of procedure., Procedure tolerated without complication., Recovers from procedure without complications.. 8:43:35 H&P Date Dictated: 10/03/2017 Within 30 days and on chart., H&P Addendum completed by physician on day of procedure. (MUST COMPLETE FOR ALL OUTPATIENTS). 8:43:49 Patient Height : 5.4 inches 8:43:51 Patient Weight : 128 lbs 8:44:17 Patient allergic to Other allergyBACTRIM 8:46:58 Lab Result : BUN 29 mg/dl 8:46:58 Lab Result : Hemoglobin 13.9 g/dl 8:46:58 Lab Result : Creatinine 1.1 mg/dl 8:53:52 Patient arrived from Pre/Post Procedure Room to [facility] 1. Patient remains on bed/stretcher for procedure. 8:53:53 Warm blankets applied for patient comfort. 8:53:53 Correct patient and procedure confirmed by team. 8:53:55 ECG and BP/O2 sat monitors applied to patient. 9:01:41 Procedure delayed due to: Possible AMI in ER 9:10:32 Patient tansferred to table in Supine position. 9:13:18 Oxygen 2 l/min NC was administered by Elliot Zamarripa RN; used for procedure; 9:13:24 Lidocaine 2% 20ml vial added to field was administered by Chandra Calvillo MD; for local anesthetic; 9:13:32 Heparin Flush Bag (1000units/500ml NS) 2 bags added to field was administered by Chandra Calvillo MD; used for procedure; 9:13:40 0.9% NaCl 100 ml/hr I.V. was administered by Elliot Zamarripa RN; Per physician; 9:17:49 Vital chart was started 9:19:45 Baseline sample Acquired. 9:19:50 Full Disclosure recording started 9:19:54 Pre-procedure instructions explained to patient. 9:19:56 Family in waiting room. 9:19:59 Patient NPO since Midnight. 9:20:05 Is the patient allergic to Iodine/contrast media? No. 9:20:27 Is patient on blood thinner?Yes 9:20:30 ACC The patient was administered the following blood thiners within the last 24 hours: ACCPlavix 9:20:34 Patient diabetic? Yes. 9:20:35 If diabetic: On Metformin? No 9:20:47 Airway obstruction? Yes COPD 9:20:50 Snore? No 9:20:52 Sleep apnea? No 9:20:58 Previous problem with sedation/anesthesia? No ? 9:21:05 Dentures? No ? 9:21:16 Patient pain scale 0/10 ?. 9:21:25 IV patent on arrival in left forearm with 0.9% NaCl at [facility]. 9:21:30 Lab results completed and on chart. 9:21:48 Right Radial & Right Groin area was prepped with chlora-prep and draped in sterile fashion 9:21:49 Alarms reviewed by R. N. 9:21:50 Sharps counted by scrub and verified by R.N. 9:21:56 Physician paged 9:21:59 Physician arrived 9:22:00 --------ALL STOP TIME OUT------ 9:22:01 Final Timeout: patient, procedure, and site verified with staff and physician. All members of the team are in agreement. 9:22:03 Right Radial & Right Groin site verified by team. 9:22:08 Physical assessment completed. ASA score P 2 - A patient with mild systemic disease as per Chandra Calvillo MD. 9:22:11 Sedation plan: IV Moderate Sedation Medication:Versed, Fentanyl 9:23:43 Radial Cocktail (Verapomil 2mg/Nitro 400mcg/Heparin 1500units) 1 syringe added to field was administered by Chandra Calvillo MD; for vasodilation; 9:23:52 COPILOT Valve Control ([id number]) opened to sterile field. 9:23:57 Use device set Radial Dx or PCI 9:23:59 ACIST Syringe (78128) opened to sterile field. 9:24:01 Medline Cath Pack ([id number]) opened to sterile field. 9:24:03 ACIST Manifold (88957) opened to sterile field. 9:24:03 ACIST Hand Control (59459) opened to sterile field. 9:24:04 Tegaderm 4 x 4 (1626W) opened to sterile field. 9:24:05 MBrace Wrist Support ([id number]) opened to sterile field. 9:24:08 SHEATH 6FR Slender ([id number]) opened to sterile field. 9:24:12 DIAGNOSTIC WIRE .035 260cm J wire (705816) opened to sterile field. 9:24:31 Bag Decanter (2002) opened to sterile field. 9:26:10 Versed 1 mg I.V. was administered by Madi Guardado RN; for anxiety; 9:26:20 Fentanyl 25 mcg I.V. was administered by Madi Guardado RN; for sedation; 9:26:54 Procedure started. 9:26:58 Local anesthetic to right radial artery with Lidocaine 2% by Chandra Calvillo MD.INITIAL ACCESS ONLY 9:27:06 A 6 Fr Short sheath was inserted into the Right Radial artery 9:27:41 INFLATOR Merit BasMadelinek (NB0476) opened to sterile field. 9:27:49 Zero performed for pressure channel P1 9:31:07 GUIDE 6FR EBU 3.0 catheter ([id number]) opened to sterile field. 9:31:43 6 Fr ebu 3.0 guide catheter was inserted over the wire 9:34:02 Radial Cocktail (Verapomil 2mg/Nitro 400mcg/Heparin 1500units) 1 syringe I.A. was administered by Chandra Calvillo MD; for vasodilation; 9:34:04 BMW 190cm [place] 2 J wire ([id number]) opened to sterile field. 9:34:10 bmw wire advanced. 9:34:29 Angiomax (bolus) 9 ml I.V. was administered by Madi Guardado RN; for anticoagulation; 9:35:37 Wire removed. 9:36:57 bmw wire advanced. 9:37:27 Angiomax Drip (250mg/50ml NS) (Renal) 21 ml/hr I.V. drip was administered by Madi Guardado RN; for anticoagulation; 9:41:45 GRAPHIX 182cm guide wire ([id number]) opened to sterile field. 9:42:27 graphix wire advanced. 9:43:39 bmw removed. 9:44:16 Wire advanced across lesion. 9:48:23 Inflation number: 1 A EUPHORA 2.0 x 20 Balloon ([id number]) was prepped and advanced across the LMCA, then inflated to 14 ALE for 0:10 (min:sec). 9:48:47 Inflation number: 2 The EUPHORA 2.0 x 20 Balloon ([id number]) was reinflated across the LMCA, to 14 ALE for 0:11 (min:sec). 9:49:16 Balloon removed over the wire. 9:52:40 Inflation Number: 3 A ARIC RX 2.5 x 22 stent ([id number]) was prepped and advanced across the LMCA. The stent was deployed at 18 ALE for 0:15 (min:sec). 9:52:56 Stent catheter was removed intact over wire. 9:53:53 bmw wire advanced. 9:54:18 Wire advanced across lesion. 9:55:07 Graphix wire removed. 9:59:16 Inflation Number: 1 A MINI VISION Rx 2.0 x 15 stent ([id number]) was prepped and advanced across the Mid LAD. The stent was deployed at 10 ALE for 0:10 (min:sec). 9:59:32 Stent catheter was removed intact over wire. 10:00:33 bmw Wire removed. 10:02:14 Nitroglycerin IC/IA 150 mcg I.C. was administered by Chandra Calvillo MD; for vasodilation; 10:02:42 Guide catheter removed. 10:03:24 TR BAND Standard ([id number]) opened to sterile field. 10:03:33 Sheath removed intact; hemostasis achieved with Mechanical Compression to the Right Radial artery. 10:03:36 Procedure ended.(Physican Out) 10:03:48 Fluoroscopy time 12.00 minutes. 10:03:52 Flurop Dose total: 747 10:03:52 Fluoroscopy dose: 747 mGy 10:03:55 Contrast amount:Isovue 300 78ml. 10:03:56 Sharps counted by scrub and verified by R.N. 10:11:14 Insertion/operative site no bleeding no hematoma. 10:11:19 TR band inflated with 12cc of air. 10:11:27 Post right radial artery:stable, soft, clean and dry 10:11:28 Post Procedure Pulses reassessed and unchanged 10:11:30 Post-procedure physical assessment completed. ASA score P 2 - A patient with mild systemic disease as per Chandra Calvillo MD. 10:11:38 Post procedure rhythm: unchanged. 10:11:41 Estimated blood loss: 10 ml 10:11:42 Post procedure instruction explained to patient.Patient verbalizes understanding. 10:11:43 Patient needs reinforcement of post procedure teaching. 10:12:23 Procedure type changed to Cath procedure, PCI procedure, Coronary Stent, Coronary Stent Initial x2, Miscellaneous Procedures, Moderate Sedation up to 30 minutes 10:13:10 Procedure and supply charges have been captured, reviewed, submitted and are correct. 10:18:47 Physician noted small disection keeping pt. inhouse for observation. 10:19:09 Vital chart was stopped 10:19:11 See physician's report for complete and final results. 10:19:13 Report given to Pre/Post Procedure Room. 10:19:18 Patient transfered to Pre/Post Procedure Room with Stretcher. 10:19:22 Procedure ended. 10:19:22 Full Disclosure recording stopped 10:19:30 End room use (Document Last) Intervention Summary Intervention Notes Time ActionType Lesion and Equipment Used Action# Pressure Duration Attributes 9:48:23 Inflate LMCA EUPHORA 2.0 x 1 14 00:10 balloon 20 Balloon ([id number]) 9:48:47 Reinflate LMCA EUPHORA 2.0 x 2 14 00:11 balloon 20 Balloon ([id number]) 9:52:40 Place stent LMCA ARIC RX 2.5 x 3 18 00:15 22 stent ([id number]) 9:59:16 Place stent Mid LAD MINI VISION Rx 1 10 00:10 2.0 x 15 stent ([id number]) Device Usage Item Name Manufacture Quantity Catalog Number Hospital Part Current M inimal Lot# / Charge Number Stock Stock Serial# Code COPILOT Valve Mccabe 1 [id number] 313552 138676 800752 5 Control Vascular ([id number]) ACIST Syringe Acist 1 38167 428257 660662 571456 2 0 (97102) Medical Systems Inc Medline Cath Cardinal 1 [id number] 327795 30675 537102 5 Pack Health ([id number]) ACIST Manifold Acist 1 83061 800165 693835 073141 5 (10304) Medical Systems Inc ACIST Hand Acist 1 20912 029199 766726 814377 5 Control Medical (52754) Systems Inc Tegaderm 4 x 4 3M 1 1626W 724930 330403 345934 5 (1626W) MBrace Wrist Advanced 1 140-0250-00 534699 71322 685169 5 Support Vascular (027131461) Dynamics SHEATH 6FR Terumo 1 [id number] 493646 926921 349655 4 0 Slender ([id number]) DIAGNOSTIC [facility] [place] 1 125625 583387 021986 993619 3 0 WIRE .035 260cm J wire (800189) Bag Decanter Microtek 1 2001S 183191 21699 739426 5 (2001S) Medical Inc. INFLATOR Merit Merit 1 AE3050 657236 448283 020795 1 5 [facility] Gravity Solutions Medical (RR2527) GUIDE 6FR EBU Medtronic 1 [id number] 821844 06443 620642 0 3.0 catheter ([id number]) BMW 190cm Mccabe 1 [id number] 560960 20935 071633 5 [place]inton 2 J Vascular wire (7681840T) GRAPHIX 182cm [place] 1 [id number] 460614 894120 809010 5 guide wire Scientific ([id number]) EUPHORA 2.0 x Medtronic 1 [id number] 896446 095249 640710 5 [id number] 20 Balloon ([id number]) ARIC RX 2.5 x Medtronic 1 [id number] 873598 4224093 824166 5 [id number] 22 stent ([id number]) MINI VISION Rx Mccabe 1 [id number] 845816 125946 206910 5 [id number] 2.0 x 15 stent Vascular ([id number]) TR BAND Terumo 1 [id number] 733743 232856 016182 4 0 Standard ([id number]) Signature Audit Bode Stage Time Signature Unsigned Intra-Procedure 10/31/2017 Dung De La Cruz 10:20:49 AM RT(R) Signatures Monitor : Dung De La Cruz RT Signature : Date : Time : [id number] [place] [address]
[~2017-10-31 07:25] MED LIST changes: -FUROSEMIDE20 MG PO; -KLOR-CON 1010 MEQ PO
[2017-10-31] MEDS ORDERED: KLOR-CON 1010 MEQ PO (07:32)
[2017-10-31] MEDS ORDERED: FUROSEMIDE20 MG PO (07:32)
[2017-10-31 07:55] LABS: BASOPHILS 0.2 % (0-2); EOSINOPHILS 1.9 % (0-7); HEMATOCRIT 37.2 % (36.0-48.0); HEMOGLOBIN 13.9 g/dL (12-16); IMMATURE GRANULOCYTES 0.2 % (0-5); LYMPHOCYTES 29.1 % (15-50); MCH 36.7 pg (26.0-34.0); MCHC 37.4 g/dL (31.0-37.0); MCV 98.2 fL (80.0-100.0); MEAN PLATELET VOLUME 10.1 fL (7.4-10.4); NEUTROPHILS 61.6 % (40-80); RBC 3.79 10x6/uL (4.00-5.40); RDW 12.8 % (11.5-14.5); WBC 4.3 10x3/uL (4.8-10.8)
[2017-10-31 07:57] VITALS: BP 130/64; Ht 162.6 cm; Wt 59.1 kg
[2017-10-31 07:58] LABS: PLATELET COUNT 61 10x3/uL (130-400)
[2017-10-31 08:02] LABS: CALCIUM 8.6 mg/dL (8.5-10.1); CARBON DIOXIDE 27.6 mmol/L (21.0-32.0); CREATININE - SERUM 1.1 mg/dL (0.6-1.3)
[2017-10-31 08:04] LABS: ANION GAP 10.7 mmol/L (8-16); POTASSIUM - SERUM 4.3 mmol/L (3.5-5.1)
[2017-10-31 08:37] LABS: PLATELET ESTIMATE DECREASED
== END 2017-10-31 14:25 | disposition home or self-care (01) ==
LOC: D.CATH 07:25
PROVIDERS: Internal Medicine Cardiovascular Disease
DX: I25.119 Atherosclerotic heart disease of native coronary artery with unspecified angina pectoris (principal); I34.0 Nonrheumatic mitral (valve) insufficiency; I50.9 Heart failure, unspecified; Z01.812 Encounter for preprocedural laboratory examination
CPT/HCPCS: 92928; 93458; C9600

== ENCOUNTER 2019-03-01 10:43 | Observation (INO) | payer MEDICARE, MEDICAID ==
--- NOTE | ~2019-03-01 | HEMODYNAMI ---
PATIENT:CORTNEY IRELAND MEDICAL RECORD: [id number] : 38 LOCATION:[facility] D.2113 ADMISSION DATE: 03/01/19 Generatedon:03/02/20199:33 Patient name: CORTNEY IRELAND Patient #: [id number] SSN: : Date of study: 03/02/2019 Page: Of Hemodynamic Procedure Report Patient Data Patient Demographics Procedure consent was obtained First Name: CORTNEY Gender: Female Last Name: SHU : 1940 [facility] Initial: EUNICE Age: 79 year(s) Patient #: [id number] Race: Unknown Additional ID: [id number] Contact details Address: [address] [place] [address] [facility] State: [place] City: [place] Zip code: [address] Past Medical History Allergies Allergen Reaction Date Comments Reported Bactrim 07/12/2017 Other allergy 10/31/2017 BACTRIM Other allergy 03/02/2019 Bactrim Admission Admission Data Admission Date: 03/01/2019 Admission Time: 13:03 Admit Source: Other Room #: D.2113 Lab Results Lab Result Date: 03/02/2019 Lab Result Time: 2:50 Biochemistry Name Units Result Min Max BUN mg/dl 23 --(----)-* 7 18 Creatinine mg/dl 1 --(--*-)-- 0.6 1.3 CBC Name Units Result Min Max Hematocrit % 35.5 *-(----)-- 42 54 Hemoglobin g/dl 11.8 *-(----)-- 13.5 17.5 Procedure Procedure Types Cath Procedure Diagnostic Procedure [facility] w/Coronaries Procedure Description Procedure Date Procedure Date: 03/02/2019 Procedure Start Time: 9:19 Procedure End Time: 9:32 Procedure Staff Name Function Armond Wallace MD Performing Physician Dung De La Cruz RT Monitor Tad Mandujano RT Scrub Madi Guardado RN Nurse Procedure Data Cath Procedure Fluoroscopy Diagnostic fluoroscopy Total fluoroscopy Time: 2.1 time: 2.1 min min Diagnostic fluoroscopy Total fluoroscopy dose: 420 dose: 420 mGy mGy Contrast Material Contrast Material Type Amount (ml) Isovue 370 65 Entry Location Entry Primary Successful Side Size Upsize Upsize Entry Closure Duque ccessful Closure Location (Fr) 1 (Fr) 2 (Fr) Remarks Device Remarks Radial Right 6 Fr Mechanical artery Short Compression Estimated blood loss: 5 ml Diagnostic catheters Device Type Used For End Catheter Placement DIAGNOSTIC Dacula 110cm 5 Procedure Fr catheter ([id number]) DIAGNOSTIC JL 3.5 5Fr Procedure catheter ([id number]) Procedure Complications No complications Procedure Medications Medication Administration Route Dosage 0.9% NaCl I.V. 100 ml/hr Oxygen etCO2 Nasal cannula 2 l/min Heparin Flush Bag added to field 2 bags (1000units/500ml NS) Lidocaine 2% added to field 20 Radial Cocktail added to field 1 syringe (Verapamil 2mg/Nitro 400mcg/Heparin 1500units) Versed I.V. 1 mg Fentanyl I.V. 50 mcg Radial Cocktail I.A. 1 syringe (Verapamil 2mg/Nitro 400mcg/Heparin 1500units) Hemodynamics Rest HGB: 11.8 (g/dl) Heart Rate: 91 (bpm) Pressure Samples Time Site Value (mmHg) Purpose Heart Use Rate(bpm) 9:21 LV 114/50,9 Snapshot 95 9:22 AO 101/73(87) Pullback 88 9:22 LV 95/32,21 Pullback 88 Gradients Valve Time Site 1 Site 2 Mean SEP/DFP Peak To Heart Use (mmHg) (sec/min) Peak Rate (mmHg) (bpm) Aortic 9:22 LV AO 0 88 95/32,21 101/73(87) Calculations Valve P-P Mean Valve Index Valve Source Name Gradient Area Flow (cm2) Aortic 0 0 Snapshots Pre Cath Intra NCS Post Cath Vital Signs Time Heart Resp SPO2 etCO2 NIBP (mmHg) Rhythm Pain Sedation Rate (ipm) (%) (mmHg) Status Level (bpm) 9:12:58 88 13 92 14.2 143/78(115) NSR 0 (11) 10(A) , No pain 9:17:07 96 32 98 26.9 148/84(114) NSR 0 (11) 10(A) , No pain 9:21:20 88 13 92 8.2 102/62(80) NSR 0 (11) 10(A) , No pain 9:25:23 84 11 94 11.9 117/64(91) NSR 0 (11) 10(A) , No pain 9:29:31 82 11 93 0.7 125/66(92) NSR 0 (11) 10(A) , No pain Medications Time Medication Route Dose Verified Delivered Reason Notes Effectiveness by by 9:12:21 0.9% NaCl I.V. 100 Madi Madi Per ml/hr Debby Guardado physician RN RN 9:12:29 Oxygen etCO2 2 l/min Madi Madi for low 02 Nasal Lorigan Lorigan sats cannula RN RN 9:12:39 Heparin Flush added 2 bags Madi Madi used for Bag to Lorigan Lorigan procedure (1000units/500ml field RN RN NS) 9:12:49 Lidocaine 2% added 20ml Madi Madi for local to vial Lorigan Lorigan anesthetic RN RN 9:13:05 Radial Cocktail added 1 Madi Madi used for (Verapamil to syringe Lorigan Lorigan procedure 2mg/Nitro field RN RN 400mcg/Heparin 1500units) 9:13:40 Versed I.V. 1 mg Madi Madi for sedation Debby Guardado RN RN 9:13:49 Fentanyl I.V. 50 mcg Madi Madi for sedation Debby Guardado RN RN 9:20:58 Radial Cocktail I.A. 1 Madi Armond for (Verapamil syringe Lorigan Madison vasodilation 2mg/Nitro SHAYNE RAHMAN 400mcg/Heparin 1500units) Procedure Log Time Note 8:31:26 Informed consent obtained and on chart 8:31:30 Admit Source: Other 8:33:02 Diagnostic Cath status Urgent 8:33:04 Tad Mandujano RT(R) sent for patient. Start room use. 8:33:05 Time tracking: Regular hours (M-F 7:00 - 5:00) 8:33:09 Plan of Care:Hemodynamics will remain stable., Cardiac rhythm will remain stable., Comfort level will be maintained., Respiratory function will remain adequate., Patient/ family verbilizes understanding of procedure., Procedure tolerated without complication., Recovers from procedure without complications.. 8:42:39 Lab Result : BUN 23 mg/dl 8:42:39 Lab Result : Creatinine 1 mg/dl 8:42:39 Lab Result : Hematocrit 35.5 % 8:42:39 Lab Result : Hemoglobin 11.8 g/dl 8:42:42 Lab results completed and on chart. 8:43:04 H&P Date Dictated: 03/01/2019 Within 30 days and on chart.. 9:11:53 Patient received from PCU to CCL 1 Alert and oriented. Tansferred to table in Supine position. 9:11:54 Warm blankets applied, and jemal hugger turned on for patient comfort. 9:11:54 Correct patient and procedure confirmed by team. 9:11:54 ECG and BP/O2 sat monitors applied to patient. 9:11:55 Vital chart was started 9:11:56 Baseline sample Acquired. 9:11:59 Rhythm: sinus rhythm 9:12:01 Full Disclosure recording started 9:12:02 Pre-procedure instructions explained to patient. 9:12:02 Pre-op teaching completed and patient verbalized understanding. 9:12:04 Family in patients room. 9:12:05 Patient NPO since Midnight. 9:12:16 Patient allergic to Other allergyBactrim 9:12:18 Is the patient allergic to Iodine/contrast media? No. 9:12:19 Is patient on blood thinner?No 9:12:20 Patient diabetic? No. 9:12:21 0.9% NaCl 100 ml/hr I.V. was administered by Madi Guardado RN; Per physician; 9:12:22 Previous problem with sedation/anesthesia? No ? 9:12:23 Snore? No 9:12:24 Sleep apnea? No 9:12:25 Deviated septum? No 9:12:26 Opens mouth fully? Yes 9:12:27 Sticks out tongue? Yes 9:12:29 Oxygen 2 l/min etCO2 Nasal cannula was administered by Madi Guardado RN; for low 02 sats; 9:12:30 Airway obstruction? Yes COPD 9:12:33 Dentures? No ? 9:12:36 Pre procedure: right dorsailis pedis pulse 2+ Normal; easily identifiable; not easily obliterated 9:12:38 Modified Asher's test Ulnar < 7 seconds 9:12:39 Heparin Flush Bag (1000units/500ml NS) 2 bags added to field was administered by Madi Guardado RN; used for procedure; 9:12:40 Patient pain scale 0/10 ?. 9:12:49 Lidocaine 2% 20ml vial added to field was administered by Madi Guardado RN; for local anesthetic; 9:12:51 IV patent on arrival in left forearm with 0.9% NaCl at [facility]. 9:12:54 Right Radial & Right Groin area was prepped with chlora-prep and draped in sterile fashion 9:12:55 Alarms reviewed by R. N. 9:12:55 Sharps counted by scrub and verified by R.N. 9:12:57 Use device set Radial Dx or PCI 9:12:58 ACIST Syringe (64298) opened to sterile field. 9:12:58 Medline Cath Pack ([id number]) opened to sterile field. 9:12:58 Bag Decanter (2002S) opened to sterile field. 9:12:59 ACIST Hand Control (22341) opened to sterile field. 9:13:00 ACIST Manifold (68527) opened to sterile field. 9:13:00 Tegaderm 4 x 4 (1626W) opened to sterile field. 9:13:00 MBrace Wrist Support ([id number]) opened to sterile field. 9:13:01 SHEATH 6FR Slender (81-1540) opened to sterile field. 9:13:02 DIAGNOSTIC WIRE .035 260cm J wire (453708) opened to sterile field. 9:13:05 Radial Cocktail (Verapamil 2mg/Nitro 400mcg/Heparin 1500units) 1 syringe added to field was administered by Madi Guardado RN; used for procedure; 9:13:07 Physician arrived 9:13:08 --------ALL STOP TIME OUT------ 9:13:08 Final Timeout: patient, procedure, and site verified with staff and physician. All members of the team are in agreement. 9:13:10 Right Radial & Right Groin site verified by team. 9:13:12 Maximum allowable Isovue 300 dose 300ml. Physician notified. (300ml for normal creatinines. For patients with creatinine of 1.7 or higher multiply weight(kg) x 5 divided by creatinine.) 9:13:16 Fire Safety Assessment: A--An alcohol-based skin anteseptic being used preoperatively., C--Open oxygen or nitrous oxide is being used., D--An ESU, laser, or fiber-optic light is being used. 9:13:18 Physical assessment completed. ASA score P 2 - A patient with mild systemic disease as per Armond Wallace MD. 9::20 Sedation plan: IV Moderate Sedation Medication:Versed, Fentanyl 9::40 Versed 1 mg I.V. was administered by Madi Guardado RN; for sedation; 9::49 Fentanyl 50 mcg I.V. was administered by Madi Guardado RN; for sedation; 9::37 Procedure started. 9:19:41 Local anesthetic to right radial artery with Lidocaine 2% by Armond Wallace MD.INITIAL ACCESS ONLY 9::46 A 6 Fr Short sheath was inserted into the Right Radial artery 9::50 A DIAGNOSTIC Dac[place] 110cm 5 Fr catheter ([id number]) was advanced over the wire and used for Procedure. 9:20:58 Radial Cocktail (Verapamil 2mg/Nitro 400mcg/Heparin 1500units) 1 syringe I.A. was administered by Armond Wallace MD; for vasodilation; 9:21:02 Zero performed for pressure channel P1 9:22:02 LV gram done using GIBSON 9:22:04 Injector settings: Ml/sec: 5, Volume: 15, 9:22:09 LV hemodynamics recorded. 9:22:15 EF : 25 % 9:24:26 LCA angiography performed. 9:24:27 RCA angiography performed. 9:25:09 Catheter exchanged over wire. 9:25:21 A DIAGNOSTIC JL 3.5 5Fr catheter ([id number]) was advanced over the wire and used for Procedure. 9:27:00 LCA angiography performed. 9:27:00 Catheter removed. 9:27:03 TR BAND Standard ([id number]) opened to sterile field. 9:27:09 Sheath removed intact; hemostasis achieved with Mechanical Compression to the Right Radial artery. 9:27:32 Procedure ended.(Physican Out) 9:30:13 Fluoroscopy time 02.10 minutes. 9:30:16 Flurop Dose total: 420 9:30:16 Fluoroscopy dose: 420 mGy 9:30:20 Contrast amount:Isovue 370 65ml. 9:30:25 Sharps counted by scrub and verified by R.N. 9:30:27 TR band inflated with 12cc of air. 9:30:28 Insertion/operative site no bleeding no hematoma. 9:32:12 Post right radial artery:stable, soft, clean and dry 9:32:14 Post Procedure Pulses reassessed and unchanged 9:32:16 Post-procedure physical assessment completed. ASA score P 2 - A patient with mild systemic disease as per Armond Wallace MD. 9:32:18 Post procedure rhythm: unchanged. 9:32:21 Estimated blood loss: 5 ml 9:32:23 Post procedure instruction explained to patient.Patient verbalizes understanding. 9:32:23 Patient needs reinforcement of post procedure teaching. 9:32:46 Procedure and supply charges have been captured, reviewed, submitted and are correct. 9:32:48 Procedure Complication : No complications 9:32:50 Vital chart was stopped 9:32:50 See physician's report for complete and final results. 9:32:53 Report given to PCU. 9:32:55 Patient transfered to PCU with Stretcher. 9:32:57 Procedure ended. 9:32:57 Full Disclosure recording stopped 9:33:00 End room use (Document Last) Device Usage Item Name Manufacture Quantity Catalog Hospital Part Current Minimal Lot# / Number Charge Number Stock Stock Serial# Code ACIST Acist 1 71495 212512 548723 252118 20 Syringe Medical (38775) Systems Inc Medline Medline 1 [id number] 316561 71282 987062 5 Cath Pack ([id number]) Bag Microtek 1 2001S 060105 30513 487224 5 Decanter Medical Inc. () ACIST Hand Acist 1 40353 358010 476709 991476 5 Control Medical (21904) Systems Inc ACIST Acist 1 86567 082403 988262 149149 5 Manifold Medical (34116) Systems Inc Tegaderm 4 3M 1 1626W 071873 045984 865413 5 x 4 (1626W) MBrace Advanced 1 140-0250-00 393203 41831 109568 5 Wrist Vascular Support Dynamics ([id number]) SHEATH 6FR Terumo 1 [id number] 148062 523211 716326 5 Slender (80-1060) DIAGNOSTIC [place] 1 629529 347837 562007 117025 30 WIRE .035 260cm J wire (233752) DIAGNOSTIC Terumo 1 40-5824 139944 472466 319119 5 Dacula 110cm 5 Fr catheter (069162) DIAGNOSTIC Cardinal 1 [id number] 706196 621114 653363 5 JL 3.5 5Fr Health catheter (484335A) TR BAND Terumo 1 [id number] 236559 283914 072233 40 Standard ([id number]) Signature Audit [place] Stage Time Signature Unsigned Intra-Procedure 03/02/2019 Dung De La Cruz 9:33:34 AM RT(R) Signatures Monitor : Dung De La Cruz RT Signature : Date : Time : [id number] [place] [address]
[~2019-03-01 10:43] MED LIST changes: +FUROSEMIDE20 MG PO; +KLOR-CON 1010 MEQ PO
[2019-03-01] MEDS ORDERED: COREG6.25 MG PO (10:56)
[2019-03-01] MEDS ORDERED: LIPITOR20 MG PO (10:57)
[2019-03-01] MEDS ORDERED: DIOVAN80 MG PO (10:57)
[2019-03-01] MEDS ORDERED: TRILEPTAL300 MG PO (10:58)
[2019-03-01] MEDS ORDERED: ULTRAM50 MG PO (10:58)
[2019-03-01] MEDS ORDERED: RANITIDINE HCL150 M1 PO (10:59)
[2019-03-01] MEDS ORDERED: CYCLOBENZAPRINE5 MG PO (10:59)
[2019-03-01 11:20] LABS: BASOPHILS 0.1 % (0-2); EOSINOPHILS 1.4 % (0-7); HEMATOCRIT 39.7 % (36.0-48.0); HEMOGLOBIN 13.4 g/dL (12-16); IMMATURE GRANULOCYTES 0.3 % (0-5); LYMPHOCYTES 16.5 % (15-50); MCH 32.8 pg (26.0-34.0); MCHC 33.8 g/dL (31.0-37.0); MCV 97.1 fL (80.0-100.0); MEAN PLATELET VOLUME 9.7 fL (7.4-10.4); MONOCYTES 9.1 % (2-11); NEUTROPHILS 72.6 % (40-80); PLATELET COUNT 140 10x3/uL (130-400); RBC 4.09 10x6/uL (4.00-5.40); RDW 12.3 % (11.5-14.5); WBC 7.2 10x3/uL (4.8-10.8)
[2019-03-01 11:28] LABS: APTT 27.3 SECONDS (22.8-39.4); INR 1.07 (0.85-1.17); PROTIME 13.4 SECONDS (11.6-15.0)
[2019-03-01 11:56] LABS: ALBUMIN 3.5 g/dL (3.4-5.0); ALKALINE PHOSPHATASE 120 U/L (46-116); ALT (SGPT) 21 U/L (10-68); BILIRUBIN - TOTAL 0.66 mg/dL (0.2-1.3); CALC OSMOLALITY 288 mosm/kg (275-300); CALCIUM 8.9 mg/dL (8.5-10.1); CARBON DIOXIDE 29.3 mmol/L (21.0-32.0); CHLORIDE - SERUM 107 mmol/L (98-107); CREATININE - SERUM 1.1 mg/dL (0.6-1.3); GLUCOSE 123 mg/dL (74-106); POTASSIUM - SERUM 4.1 mmol/L (3.5-5.1); PROTEIN - SERUM 7.5 g/dL (6.4-8.2); SODIUM 144 mmol/L (136-145); UREA NITROGEN 15 mg/dL (7-18); eGFR NON AFRICAN AMERICAN 51 mL/min (90-120)
[2019-03-01 12:09] LABS: AMYLASE - SERUM 36 U/L (25-115); CKMB 1.2 U/L (0.0-3.6); CREATINE KINASE 52 UL (21-215); LIPASE 87 U/L (73-393); MAGNESIUM - SERUM 2.1 mg/dL (1.8-2.4)
[2019-03-01 12:17] LABS: TROPONIN-I 0.074 ng/mL (0.000-0.060)
[2019-03-01 12:31] LABS: APPEARANCE CLEAR (CLEAR); BILIRUBIN NEGATIVE (NEGATIVE); COLOR YELLOW (YELLOW); GLUCOSE NEGATIVE (NEGATIVE); KETONE NEGATIVE (NEGATIVE); NITRITE NEGATIVE (NEGATIVE); PROTEIN NEGATIVE (NEGATIVE); SPECIFIC GRAVITY 1.005 (1.005-1.020); UROBILINOGEN NORMAL (NORMAL)
[2019-03-01 13:54] VITALS: BP 132/71
--- NOTE | 2019-03-01 15:09 | NUR ---
RECIEVED PT FROM ER. NO COMPLAINTS/CONERNS AT THIS TIME.
[2019-03-01 16:07] VITALS: BP 148/78
[2019-03-01 16:15] VITALS: BP 148/78; BMI 22.7
[2019-03-01 18:54] LABS: CKMB 0.8 U/L (0.0-3.6); CREATINE KINASE 48 UL (21-215)
[2019-03-01 18:56] LABS: TROPONIN-I 0.079 ng/mL (0.000-0.060)
[2019-03-01 19:55] VITALS: BP 135/85
--- NOTE | 2019-03-01 20:01 | NUR ---
PT SITTING UP IN BED ALERT AND ORIENTED X3. PT RR EVEN AND UNLABORED. REQUESTED JELLO AND PUDDING TO TAKE MEDICATION WITH. PT RUNNING 69 SINUS RYTHEM ON TELEMETRY PER CLAY STAIN MIXER. PT DENIES ANY FURTHER NEEDS OR PAIN AT THIS TIME. BED LOW CALL LIGHT WITHIN REACH WILL CONTINUE TO MONITOR.
[2019-03-01 23:43] LABS: CKMB 0.6 U/L (0.0-3.6); CREATINE KINASE 47 UL (21-215)
[2019-03-01 23:45] LABS: TROPONIN-I 0.082 ng/mL (0.000-0.060)
[2019-03-01 23:49] VITALS: BP 145/68
--- NOTE | 2019-03-02 01:55 | NUR ---
PT RESTING COMFORTABLY IN BED. RR EVEN AND UNLABORED. 69 SR ON TELE. BED LOW CALL LIGHT WITHIN REACH WILL CONTINUE TO MONITOR.
[2019-03-02 02:58] LABS: BASOPHILS 0.2 % (0-2); EOSINOPHILS 1.4 % (0-7); HEMATOCRIT 35.5 % (36.0-48.0); HEMOGLOBIN 11.8 g/dL (12-16); IMMATURE GRANULOCYTES 0.2 % (0-5); LYMPHOCYTES 24.7 % (15-50); MCHC 33.2 g/dL (31.0-37.0); MCV 96.2 fL (80.0-100.0); MEAN PLATELET VOLUME 9.5 fL (7.4-10.4); MONOCYTES 9.7 % (2-11); NEUTROPHILS 63.8 % (40-80); PLATELET COUNT 121 10x3/uL (130-400); RBC 3.69 10x6/uL (4.00-5.40); RDW 12.4 % (11.5-14.5); WBC 5.9 10x3/uL (4.8-10.8)
--- NOTE | 2019-03-02 03:12 | NUR ---
I have reviewed this patient and I concur with the Shift Assessment completed by the Licensed Practical Nurse today this shift.
[2019-03-02 03:34] LABS: ALBUMIN 2.9 g/dL (3.4-5.0); ALKALINE PHOSPHATASE 97 U/L (46-116); CALCIUM 8.5 mg/dL (8.5-10.1); CARBON DIOXIDE 28.2 mmol/L (21.0-32.0); CHLORIDE - SERUM 108 mmol/L (98-107); CKMB 0.8 U/L (0.0-3.6); CREATINE KINASE 38 UL (21-215); GLUCOSE 119 mg/dL (74-106); POTASSIUM - SERUM 3.7 mmol/L (3.5-5.1); PROTEIN - SERUM 6.2 g/dL (6.4-8.2); SODIUM 142 mmol/L (136-145); eGFR NON AFRICAN AMERICAN 56 mL/min (90-120)
[2019-03-02 03:37] LABS: ALT (SGPT) 13 U/L (10-68); CALC OSMOLALITY 287 mosm/kg (275-300); UREA NITROGEN 23 mg/dL (7-18)
--- NOTE | 2019-03-02 07:33 | NUR ---
PT ASLEEP, SNORING. DID NOT WAKE I ENTERED, DID NOT FURTHER DISTURB AT THIS TIME. BREATHS EVEN/REGULAR/UNLABORED AT THIS TIME. CL IN REACH, SRX2.
[2019-03-02 07:59] VITALS: BP 127/61
--- NOTE | 2019-03-02 09:52 | NUR ---
PT BACK FROM HEART CATH. PULSE PRESENT. RESTING PEACEFULLY, NO S/S OF ACUTE DISTRESS AT THIS TIME.
[2019-03-02 11:57] VITALS: BP 136/62
--- NOTE | 2019-03-02 11:58 | NUR ---
PT RESTING EASILY. NO SIGNS OR SYMPTOMS OF DRESSED. CL IN REACH, SR2
--- NOTE | 2019-03-02 12:28 | NUR ---
ATTEMPTED TOT RADHA 2CC OF AIR OUT, PT BEGAN BLEEDING, REPLACED AIR. WILL ATTEMPT AGAIN IN AN HOUR.
[2019-03-02 16:27] VITALS: BP 125/66
--- NOTE | 2019-03-02 18:17 | NUR ---
I have reviewed this patient and I concur with the Shift Assessment completed by the Licensed Practical Nurse today this shift.
[2019-03-02 19:45] VITALS: BP 144/67
--- NOTE | 2019-03-02 19:51 | NUR ---
PT IS RESTING WITH EYES CLOSED SKIN WARM AND DRY. DRSG TO RT WRIST INTACT AND NO BLEEDING LCTA PT REMAINED IF ASLEEP DURING EXAM
[2019-03-02 23:44] VITALS: BP 109/61
--- NOTE | 2019-03-03 03:01 | NUR ---
I have reviewed this patient and I concur with the Shift Assessment completed by the Licensed Practical Nurse today this shift.
[2019-03-03 03:42] VITALS: BP 107/40
[2019-03-03 05:57] LABS: BASOPHILS 0.2 % (0-2); EOSINOPHILS 1.8 % (0-7); HEMOGLOBIN 11.3 g/dL (12-16); IMMATURE GRANULOCYTES 0.2 % (0-5); LYMPHOCYTES 29.8 % (15-50); MCH 31.8 pg (26.0-34.0); MCHC 33.2 g/dL (31.0-37.0); MCV 95.8 fL (80.0-100.0); MEAN PLATELET VOLUME 9.4 fL (7.4-10.4); MONOCYTES 8.6 % (2-11); NEUTROPHILS 59.4 % (40-80); PLATELET COUNT 120 10x3/uL (130-400); RBC 3.55 10x6/uL (4.00-5.40); RDW 12.5 % (11.5-14.5); WBC 4.9 10x3/uL (4.8-10.8)
[2019-03-03 06:21] LABS: ANION GAP 11.2 mmol/L (8-16); CALCIUM 8.3 mg/dL (8.5-10.1); CARBON DIOXIDE 25.6 mmol/L (21.0-32.0); CREATININE - SERUM 1.1 mg/dL (0.6-1.3); POTASSIUM - SERUM 3.8 mmol/L (3.5-5.1)
--- NOTE | 2019-03-03 07:15 | NUR ---
PT AWAKE AND ORIENTED. NO COMPALINTS/CONERNS, WOULD LIKE TO GO HOME TODAY. CL IN REACH, SRX2.
[2019-03-03 07:59] VITALS: BP 150/81
--- NOTE | 2019-03-03 09:55 | CN ---
PATIENT NAME:CORTNEY IRELAND MEDICAL RECORD: [id number] : 38 LOCATION:D. D.2113 ADMIT DATE: 03/01/19 ACCOUNT: [id number] CONSULTING PHYSICIAN: EDIL DUKE MD REFERRING PHYSICIAN: ROGER PEREZ MD DATE OF CONSULTATION: 03/02/2019 HISTORY OF PRESENT ILLNESS: An 79-year-old female with a history of coronary artery disease, status post intervention via Dr. Calvillo in the past, has been having marked problems with dyspnea and has had back discomfort in the past 2-3 days, radiating to the jaw, also dyspnea on exertion, fatigue, had an episode of marked dyspnea, found to have elevated cardiac enzymes, we were asked to see her concerning cardiovascular status. PAST MEDICAL HISTORY: Includes, 1. History of coronary artery disease. 2. Hypertension. 3. Hyperlipidemia. 4. Osteoarthritis. MEDICATIONS: Include Lasix 20 mg p.o. every day, tramadol 50 every day, Trileptal 150 b.i.d., Epitol 200 b.i.d., Vistaril 25 p.o. t.i.d., Lipitor 20 every day, valsartan 80 every day, carvedilol 6.25 every day. ALLERGIES: BACTRIM. SOCIAL HISTORY: Nonsmoker, nondrinker. She is able to take low-end activity ADLs, such as changing sheets, etc. REVIEW OF SYSTEMS: The patient reports easy bruising but reports no swollen glands. The patient reports no fever, no night sweats, no significant weight gain, no significant weight loss. No significant exercise tolerance. The patient reports no dry eyes, no irritation, no vision change. Patient reports no difficulty hearing and no ear pain. Patient reports no frequent nose bleeds or nose and sinus problems. Patient reports on arm pain on exertion. No shortness of breath while lying down. No history of heart murmur. Patient reports no cough, no wheezing or coughing up blood. Patient reports no abdominal pain, no vomiting. Normal appetite. No diarrhea and not vomiting blood. No nausea and no constipation. Patient reports no incontinence. No difficulty urinating. No hematuria. No increased frequency. Patient reports no muscle aches. No weakness, no arthralgias, no back pain. No swelling of the extremities. Patient reports no abnormal mole, no jaundice, no rashes. Reports no loss of consciousness. No weakness and no numbness. No seizures, dizziness, or headaches. The patient reports no depression, no sleep disturbance, feeling safe in a relationship and no alcohol abuse. Patient reports on fatigue. Reports no runny nose or sinus pressure. No itching, no hives, and no frequent sneezing. PHYSICAL EXAMINATION: GENERAL: Elderly female, in no acute distress. VITAL SIGNS: 127/61, pulse 74 and regular. HEENT: Normocephalic, atraumatic. NECK: No bruits noted. HEART: Regular, II/ systolic ejection murmur. LUNGS: Fairly good excursion. CONSULT REPORT [id number] CORTNEY IRELAND ABDOMEN: Soft, nontender. EXTREMITIES: Pulses 2+. No edema. DIAGNOSTIC DATA: ECG showing nonspecific ST-T changes. IMPRESSION: Cardiomyopathy, non-ST elevation myocardial infarction, hypertension, hyperlipidemia. PLAN: For angiography, intervention based on above. TRANSINT:[id number] Voice Confirmation ID: [id number] DOCUMENT ID: [id number] EDIL DUKE MD at 0955 CC: [id number] DICTATION DATE: 03/02/19930 BRANCH STORE MANAGER: 03/02/19 1208 ADM IN [address] [place] [address]
--- NOTE | 2019-03-03 09:55 | OP ---
PATIENT NAME: CORTNEY IRELAND MEDICAL RECORD: [id number] :38 LOCATION:D.M2 D.2113 ADMISSION DATE:03/01/19 SURGEON: EDIL DUKE MD DATE OF OPERATION: 03/02/2019 PROCEDURE: Left heart catheterization, selective coronary angiography, right radial approach. CATHETERS: Radial sheath, [place] catheter, and JL3.5. The procedure was well tolerated. The patient was returned to corona. Sheath was removed. TR band was placed. FINDINGS: Left ventriculography in 30-degree GIBSON shows global hypokinesis. Reduced EF of 20% to 25%. CORONARY ANATOMY: LEFT MAIN: Left main is free of disease. LAD: LAD in the area of previous stenting shows about 50% stenosis. CIRCUMFLEX: Circumflex appears to be totally occluded with some [id number]-ptiv collaterals. RIGHT CORONARY ARTERY: Previous stenting is widely patent. IMPRESSION: Severe cardiomyopathy, suspect more of a strain pattern. At this point, for elevated enzymes, we will add Aldactone to her ARB and beta blockade. We can switch to Entresto depending on symptomatology. We will repeat echo in 3 months, could consider ICD. Baseline ECG is somewhat borderline QRS duration for 3 lead. TRANSINT:[id number] Voice Confirmation ID: [id number] DOCUMENT ID: [id number] EDIL DUKE MD at 0955 CC: [id number] DICTATION DATE: 03/02/19 0932 SHIRRING MACHINE OPERATOR AUTOMATIC: 03/02/19 1328 ADM IN [facility] [address] [place] [address]
[2019-03-03 12:04] VITALS: BP 117/68
--- NOTE | 2019-03-03 12:08 | EC ---
PATIENT:CORTNEY IRELAND DATE OF SERVICE: 03/01/19 SEX: F MEDICAL RECORD: [id number] DATE OF : 38 LOCATION:D.M2 D.211 AGE OF PATIENT: 79 ADMISSION DATE: 03/01/19 REFERRING PHYSICIAN: INTERPRETING PHYSICIAN: EDIL DUKE MD ECHOCARDIOGRAM REPORT ECHO CHARGES 4 ECHO COMPLETE Date: 03/02/19 CLINICAL DIAGNOSIS: CHF ECHOCARDIOGRAPHIC MEASUREMENTS (adult normal given) AC root (d.<3.7cm) 3.0 cm LV Septum d (<1.2 cm> 1.4 cm Valve Excursion 1.6 cm LV Septum (systole) 1.9 cm Left Atria (s.<4.0cm> 3.4 cm LVPW d(<1.2cm) 1.5 cm RV (d.<2.3cm) 1.9 cm LVPW (sytole) 1.6 cm LV diastole(<5.6CM) 6.1 cm MV E-F(>70mm/sec) cm LV systole 4.7 cm LVOT Diameter 1.7 cm MV exc.(>10mm) cm Est.ejection fraction (50-75%) % DOPPLER: LVIT cm/sec A 101 cm/sec E 135 cm/sec LA cm/sec RVSP 23.0 mmHg LVOT 81.0 cm/sec AOP1/2T m/s Asc. Ao 150 cm/sec RVOT 71.0 cm/sec RA cm/sec PA 82.0 cm/sec AV Gradient Peak 9.0 mmHg AV Mean 4.1 mmHg AV Area 1.0 cm MV Gradient Peak 8.7 mmHg MV Mean 2.5 mmHg MV Area cm COMMENTS: Retort Feeder Ground Bone: 1 JALEEL KINGOE Materials Intern: 3 Dr. Jarrett TAPE# PACS Pericardial Effusion Y DATE OF SERVICE: Adequate 2-D, color-flow and spectral Doppler, and M-mode. LVH is present. LV internal dimensions are normal. LV is globally hypokinetic with reduced EF. Estimated EF is 30% to 35%. Aortic valve sclerosis without stenosis by Doppler interrogation. Left atrium is normal. Mitral valve shows no prolapse. Mitral annular calcification. Moderate MR. Right-sided chambers are grossly normal. Moderate TR. ECHOCARDIOGRAM REPORT [id number] CORTNEY IRELAND TRANSINT:[id number] Voice Confirmation ID: [id number] DOCUMENT ID: [id number] EDIL DUKE MD at 1208 CC: [id number] DICTATION DATE: 03/03/1949 PLANT AND INSTRUMENT ENGINEER: 03/03/19 1159 ADM IN [facility] [address] [id number]
--- NOTE | 2019-03-03 12:14 | NUR ---
SPOKE WITH DR. BARROSO, HE STATED PT CAN GO HOME BUT SHE MUST HAVE A F/U WITH HIM AND A P.E.T. SCAN PRIOR TO SEEING HIM. PT HAD ME CALL HER DAUGHTER, DAUGHTER STATED SHE IS AT WORK WITH PATIENTS, BUT WOULD BE ABLE TO COME UP PICK HER MOTHER UP AT ABOUT 0905-3570 WHEN SHE GETS OFF. PT REQUESTED I TAKE HER TELEMTRY OFF NOW IT'S UNCOMFORTABLE.
[2019-03-03 12:38] VITALS: BMI 22.6
--- NOTE | 2019-03-03 14:55 | MORECARE ---
CASE MANAGEMENT DISCHARGE SUMMARY PATIENT: CORTNEY IRELAND UNIT: [id number] ADM DATE: 03/01/19 AGE: 79 : 39 SEX: F ROOM/BED: D.2113 AUTHOR: ALLIE CEJA PHYSICIAN: REFERRING PHYSICIAN: ROGER PEREZ MD DATE OF SERVICE: 03/03/19 Discharge Plan Patient Name: CORTNEY IRELAND [facility] [facility] 1940 Planned Disposition: Home Anticipated Discharge Date: 03/03/19 Discharge Date: Expected LOS: 2 Initial Reviewer: [email or web address] Initial Review Date: 03/03/2019 Generated: 03/03/19 3:54 pm Coverage Notice Reviewer: [email or web address] Lisa Saenz Notice Issued Date-Time: 03/02/2019 15:00 Notice Type: Medicare Outpatient Observation Notice Notice Delivered To: Patient Relationship to Patient: Self Pants Closer Name: Delivery Method: HAND - Hand Delivered Kennedi Days: Prior Verbal Notification: Recipient Understood Notice: Yes Recipient Signature: Yes Med Rec Note Co-signed by Attending: Coverage Notice Comment: Patient Name: CORTNEY IRELAND Page [phone] at 1455 All edits/amendments must be made on the electronic document DICTATION DATE: 03/03/191453 LABORER GENERAL: CARMINE 03/03/191453 RPT#: [id number] DC DATE: STATUS: ADM IN [facility] [address] [place] [address] END OF REPORT
--- NOTE | 2019-03-03 15:05 | MORECARE ---
CASE MANAGEMENT DISCHARGE SUMMARY PATIENT: CORTNEY IRELAND UNIT: [id number] ADM DATE: 03/01/19 AGE: 79 : 39 SEX: F ROOM/BED: D.3860 AUTHOR: MARCIAL,DOC PHYSICIAN: REFERRING PHYSICIAN: ROGER PEREZ MD DATE OF SERVICE: 03/03/19 Discharge Plan Patient Name: CORTNEY IRELAND [facility] [facility] 1940 Planned Disposition: Home Anticipated Discharge Date: 03/03/19 Discharge Date: Expected LOS: 2 Initial Reviewer: [email or web address] Initial Review Date: 03/03/2019 Generated: 03/03/19 4:04 pm Comments DCP- Discharge Planning Updated by [email or web address]: Prabhjot Piedra on 03/03/19 2:[address] Patient Name: CORTNEY IRELAND Admission Status: ER Accout number: [id number] Admission Date: 03-01-2019 : 1940 Admission Diagnosis: Attending: ROGER PEREZ Current LOS: 2 Anticipated DC Date: 03-03-2019 Planned Disposition: Home Primary Insurance: [facility] MEDICARE SOLUTIONS Discharge Planning Comments: CM RECEIVED ORDER FROM DR. BARROSO FOR PET SCAN. DR. BARROSO NOTIFED THAT PT CANNOT DISCHARGE UNTIL THE PET SCAN IS ARRANGED AND THAT THIS NEEDS TO BE DONE BEFORE PT CAN HAVE A BIOPSY OF THE MASS. PORTABLE PET SCANNING AVAILABLE AT [facility] IN [place] ON ; PORTABLE PET SCANNING [facility] ON EVERY OTHER SUNDAY. GUERITA SPOKE TO BEDSIDE NURSE WHO ADVISED THAT PT REQUESTS APPOINTMENT FOR A SUNDAY THAT IS THE DAY OF THE WEEK THAT PT'S DAUGHTER IS AVAILBLE TO TRANSPORT TO MEDICAL APPOINTMENTS. CM CALLED PET CT CENTRAL SCHEDULING, , SPOKE TO MUSTAPHA WHO TOOK INFORMATION AND PROVIDED DATE FOR PET SCAN OF 03-05-19. THEY WILL CALL PT THE DAY BEFORE APPOINTMENT WITH PT'S ARRIVAL TIME TO CONFIRM APPOINTMENT. CM FAXED REFERRAL INFORMATION TO PET CT CENTRAL SCHEDULING AT [phone]. GUERITA NOTIFIED NURSE SANDHYA. PT HAS APPOINTMENT FOR PET CT SCAN ON 03-05-18 AT [facility]. CENTRAL PET CT SCHEDULING WILL CALL PT TOMORROW WITH SPECIFIC APPOINTMENT TIME, Paint Spraying Machine Operator Helper: Prabhjot Piedra Coverage Notice Reviewer: [id number] Lisa Saenz Notice Issued Date-Time: 03/02/2019 15:00 Notice Type: Medicare Outpatient Observation Notice Notice Delivered To: Patient Relationship to Patient: Self Aircraft Cleaner Name: Delivery Method: HAND - Hand Delivered Kennedi Days: Prior Verbal Notification: Recipient Understood Notice: Yes Recipient Signature: Yes Med Rec Note Co-signed by Attending: Coverage Notice Comment: Last DP export: 03/03/19 1:54 p Patient Name: CORTNEY IRELAND Page [phone] at 1505 All edits/amendments must be made on the electronic document DICTATION DATE: 03/03/19 1504 DIMETHYLANILINE SULFATOR OPERATOR: CARMINE 03/03/19 1504 RPT#: [id number] DC DATE: STATUS: ADM IN [facility] [address] [place] [address] END OF REPORT
--- NOTE | 2019-03-03 15:16 | MORECARE ---
CASE MANAGEMENT DISCHARGE SUMMARY PATIENT: CORTNEY IRELAND UNIT: [id number] ADM DATE: 03/01/19 AGE: 79 : 39 SEX: F ROOM/BED: D.9941 AUTHOR: MARCIAL,DOC PHYSICIAN: REFERRING PHYSICIAN: ROGER PEREZ MD DATE OF SERVICE: 03/03/19 Discharge Plan Patient Name: CORTNEY IRELAND [facility] : 1940 Planned Disposition: Home Anticipated Discharge Date: 03/03/19 Discharge Date: Expected LOS: 2 Initial Reviewer: [email or web address] Initial Review Date: 03/03/2019 Generated: 03/03/19 4:16 pm Comments DCP- Discharge Planning Updated by [email or web address]: Prabhjot Piedra on 03/03/19 2:[address] Patient Name: CORTNEY IRELAND Admission Status: ER Accout number: [id number] Admission Date: 03-01-2019 : 1940 Admission Diagnosis: Attending: ROGER PEREZ Current LOS: 2 Anticipated DC Date: 03-03-2019 Planned Disposition: Home Primary Insurance: [facility] MEDICARE SOLUTIONS Discharge Planning Comments: CM RECEIVED ORDER FROM DR. BARROSO FOR PET SCAN. DR. BARROSO NOTIFED THAT PT CANNOT DISCHARGE UNTIL THE PET SCAN IS ARRANGED AND THAT THIS NEEDS TO BE DONE BEFORE PT CAN HAVE A BIOPSY OF THE MASS. PORTABLE PET SCANNING AVAILABLE AT [facility] IN [place] ON ; PORTABLE PET SCANNING AVAILABLE AT [facility] ON EVERY OTHER SUNDAY. GUERITA SPOKE TO BEDSIDE NURSE WHO ADVISED THAT PT REQUESTS APPOINTMENT FOR A SUNDAY THAT IS THE DAY OF THE WEEK THAT PT'S DAUGHTER IS AVAILBLE TO TRANSPORT TO MEDICAL APPOINTMENTS. CM CALLED PET CT CENTRAL SCHEDULING, , SPOKE TO MUSTAPHA WHO TOOK INFORMATION AND PROVIDED DATE FOR PET SCAN OF 03-05-19. THEY WILL CALL PT THE DAY BEFORE APPOINTMENT WITH PT'S ARRIVAL TIME TO CONFIRM APPOINTMENT. CM FAXED REFERRAL INFORMATION TO PET CT CENTRAL SCHEDULING AT [phone]. GUERITA NOTIFIED NURSE SANDHYA. PT HAS APPOINTMENT FOR PET CT SCAN ON 03-05-18 AT [facility]. CENTRAL PET CT SCHEDULING WILL CALL PT TOMORROW WITH SPECIFIC APPOINTMENT TIME, Chief Ii Dispatcher: Prabhjot Piedra External Providers External Provider: OTHER-OTHER Next Contact Date: 03/03/2019 Service Request Date: Service Type: Resolution: Reviewer: Comments: Coverage Notice Reviewer: [email or web address] Lisa Saenz Notice Issued Date-Time: 03/02/2019 15:00 Notice Type: Medicare Outpatient Observation Notice Notice Delivered To: Patient Relationship to Patient: Self Waste Specialist Name: Delivery Method: HAND - Hand Delivered Kennedi Days: Prior Verbal Notification: Recipient Understood Notice: Yes Recipient Signature: Yes Med Rec Note Co-signed by Attending: Coverage Notice Comment: Last DP export: 03/03/19 2:04 p Patient Name: CORTNEY IRELAND Page [phone] at 1516 All edits/amendments must be made on the electronic document DICTATION DATE: 03/03/191515 AIRFRAME TECHNICAL OFFICER: CARMINE 03/03/191515 RPT#: [id number] DC DATE: STATUS: ADM IN [facility] [address] [place] [address] END OF REPORT
--- NOTE | 2019-03-03 18:11 | NUR ---
STILL WAITING ON FAMILY MEMEBER TO ARRIVE AND TAKE PT HOME.
--- NOTE | 2019-03-03 18:27 | NUR ---
PT ESCORTED OUT VIA WHEELCHAIR TO DAUGHTERS CAR. NO COMPLAINTS/CONCERNS VOICED AT THIS TIME.
--- NOTE | 2019-03-04 08:02 | MORECARE ---
CASE MANAGEMENT DISCHARGE SUMMARY PATIENT: CORTNEY IRELAND UNIT: [id number] ADM DATE: 03/01/19 AGE: 79 : 39 SEX: F ROOM/BED: D.4890 AUTHOR: MARCIAL,DOC PHYSICIAN: REFERRING PHYSICIAN: ROGER PEREZ MD DATE OF SERVICE: 03/04/19 Discharge Plan Patient Name: CORTNEY IRELAND [facility] [facility] 1940 Planned Disposition: Home Anticipated Discharge Date: 03/03/19 Discharge Date: 03/03/2019 Expected LOS: 2 Initial Reviewer: [id number] Initial Review Date: 03/03/2019 Generated: 03/04/19 9:01 am Comments DCP- Discharge Planning Updated by [id number]: Prabhjot Piedra on 03/03/19 2:[address] Patient Name: CORTNEY IRELAND Admission Status: ER Accout number: [id number] Admission Date: 03-01-2019 : 1940 Admission Diagnosis: Attending: ROGER PEREZ Current LOS: 2 Anticipated DC Date: 03-03-2019 Planned Disposition: Home Primary Insurance: [facility] MEDICARE SOLUTIONS Discharge Planning Comments: CM RECEIVED ORDER FROM DR. BARROSO FOR PET SCAN. DR. BARROSO NOTIFED THAT PT CANNOT DISCHARGE UNTIL THE PET SCAN IS ARRANGED AND THAT THIS NEEDS TO BE DONE BEFORE PT CAN HAVE A BIOPSY OF THE MASS. PORTABLE PET SCANNING AVAILABLE AT [facility] IN [facility] ON ; PORTABLE PET SCANNING AVAILABLE AT [facility] ON EVERY OTHER SUNDAY. GUERITA SPOKE TO BEDSIDE NURSE WHO ADVISED THAT PT REQUESTS APPOINTMENT FOR A SUNDAY THAT IS THE DAY OF THE WEEK THAT PT'S DAUGHTER IS AVAILBLE TO TRANSPORT TO MEDICAL APPOINTMENTS. CM CALLED PET CT CENTRAL SCHEDULING, , SPOKE TO MUSTAPHA WHO TOOK INFORMATION AND PROVIDED DATE FOR PET SCAN OF 03-05-19. THEY WILL CALL PT THE DAY BEFORE APPOINTMENT WITH PT'S ARRIVAL TIME TO CONFIRM APPOINTMENT. CM FAXED REFERRAL INFORMATION TO PET CT CENTRAL SCHEDULING AT [phone]. GUERITA NOTIFIED NURSE SANDHYA. PT HAS APPOINTMENT FOR PET CT SCAN ON 03-05-18 AT [facility]. CENTRAL PET CT SCHEDULING WILL CALL PT TOMORROW WITH SPECIFIC APPOINTMENT TIME, Die Lay Out Worker: Prabhjot Piedra Coverage Notice Reviewer: [id number] Lisa Saenz Notice Issued Date-Time: 03/02/2019 15:00 Notice Type: Medicare Outpatient Observation Notice Notice Delivered To: Patient Relationship to Patient: Self Director Of Respiratory Therapy Name: Delivery Method: HAND - Hand Delivered Kennedi Days: Prior Verbal Notification: Recipient Understood Notice: Yes Recipient Signature: Yes Med Rec Note Co-signed by Attending: Coverage Notice Comment: Last DP export: 03/03/19 2:16 p Patient Name: CORTNEY IRELAND Page [phone] at 0802 All edits/amendments must be made on the electronic document DICTATION DATE: 03/04/19800 SKID WORKER: CARMINE 03/04/19800 RPT#: [id number] DC DATE:03/03/19 STATUS: DIS IN [facility] [address] [place] [address] END OF REPORT
== END 2019-03-03 18:28 | disposition home or self-care (01) ==
LOC: D.ER 10:43 → D.EDHOLD 13:03 → D.M2 13:03 → OBSVTIME 13:09 → D.M2 13:26
PROVIDERS: Family Medicine; ADMIT Internal Medicine Nephrology; ATTEND Internal Medicine Nephrology
DX: I21.4 Non-ST elevation (NSTEMI) myocardial infarction (principal); R07.9 Chest pain, unspecified; J43.9 Emphysema, unspecified; I25.110 Atherosclerotic heart disease of native coronary artery with unstable angina pectoris; I25.5 Ischemic cardiomyopathy; R91.1 Solitary pulmonary nodule; I50.22 Chronic systolic (congestive) heart failure; R59.0 Localized enlarged lymph nodes; E78.5 Hyperlipidemia, unspecified; I11.0 Hypertensive heart disease with heart failure; F41.9 Anxiety disorder, unspecified; Z86.73 Personal history of transient ischemic attack (TIA), and cerebral infarction without residual deficits; Z87.891 Personal history of nicotine dependence

== ENCOUNTER 2019-03-09 08:49 | Outpatient (CLI) | payer MEDICARE, MEDICAID ==
[~2019-03-09] VITALS: Ht 162.6 cm; Wt 61.6 kg
--- NOTE | ~2019-03-09 | HEMODYNAMI ---
PATIENT:CORTNEY IRELAND MEDICAL RECORD: [id number] : 38 LOCATION:[facility] D.2116 ADMISSION DATE: 03/09/19 Generatedon:03/10/201910:45 Patient name: CORTNEY IRELAND Patient #: [id number] SSN: : Date of study: 03/10/2019 Page: Of Hemodynamic Procedure Report Patient Data Patient Demographics Procedure consent was obtained First Name: CORTNEY Gender: Female Last Name: SHU : 1940 [facility] Initial: EUNICE Age: 79 year(s) Patient #: [id number] Race: Unknown Additional ID: [id number] Contact details Address: [address] [place] [address] [facility] State: [place] City: [place] Zip code: [address] Past Medical History Allergies Allergen Reaction Date Comments Reported Bactrim 07/12/2017 Other allergy 10/31/2017 BACTRIM Other allergy 03/02/2019 Bactrim Admission Admission Data Admission Date: 03/09/2019 Admission Time: 8:49 Room #: D.2116 Height (in.): 63.78 BSA: 1.65 (m2) Height (cm.): 162 BMI: 23.24 (kg/m2) Weight (lbs.): 134.48 Weight (kg.): 61 Lab Results Lab Result Date: 03/10/2019 Lab Result Time: 0:00 Biochemistry Name Units Result Min Max BUN mg/dl 22 --(----)-* 7 18 Creatinine mg/dl 1 --(--*-)-- 0.6 1.3 CBC Name Units Result Min Max Hemoglobin g/dl 10.3 *-(----)-- 13.5 17.5 Procedure Procedure Types Cath Procedure Diagnostic Procedure [facility] w/Coronaries FFR/IVUS FFR Initial Sedation Charges Moderate Sedation up to 15 minutes PCI Procedure Coronary Stent Coronary Stent Initial Procedure Description Procedure Date Procedure Date: 03/10/2019 Procedure Start Time: 10:24 Procedure End Time: 10:43 Procedure Staff Name Function Eldon Madrigal MD Performing Physician Gunjan Grimm RT Monitor Jennifer Yates RN Nurse Kasey Mancia RT Scrub Procedure Data Cath Procedure Fluoroscopy Diagnostic fluoroscopy Total fluoroscopy Time: 4.7 time: 4.7 min min Diagnostic fluoroscopy Total fluoroscopy dose: 628 dose: 628 mGy mGy Contrast Material Contrast Material Type Amount (ml) Isovue 370 99 Entry Location Entry Primary Successful Side Size Upsize Upsize Entry Closure Succes sful Closure Location (Fr) 1 (Fr) 2 (Fr) Remarks Device Remarks Femoral Left 6 Fr Exoseal artery Short Estimated blood loss: 5 ml Procedure Complications No complications Procedure Medications Medication Administration Route Dosage 0.9% NaCl I.V. 100 ml/hr Oxygen etCO2 Nasal cannula 2 l/min Lidocaine 2% added to field 20 Heparin Flush Bag added to field 2 bags (1000units/500ml NS) Versed I.V. 2 mg Fentanyl I.V. 50 mcg Heparin Bolus I.V. 4000 units Integrilin (Bolus I.V. 5.6 ml 2mg/ml) Plavix P.O. 600 mg Hemodynamics Rest BSA: 1.65 (m2) HGB: 10.3 (g/dl) O2 Consumption: Estimated: 164.97 (ml/min) O2 Co nsumption indexed: Estimated:99.98 (ml/min/m) Heart Rate: 97 (bpm) Pressure Samples Time Site Value (mmHg) Purpose Heart Use Rate(bpm) 10:29 LV 126/2,16 Snapshot 95 Snapshots Pre Cath Intra NCS Post Cath Vital Signs Time Heart Resp SPO2 etCO2 NIBP (mmHg) Rhythm Pain Sedation Rate (ipm) (%) (mmHg) Status Level (bpm) 9:58:23 89 26 99 32.9 156/90(121) NSR 0 (11) 10(A) , No pain 10:02:27 86 15 98 11.9 138/80(100) NSR 0 (11) 10(A) , No pain 10:06:32 97 11 99 36.7 119/71(98) NSR 0 (11) 10(A) , No pain 10:10:38 90 14 99 15.7 125/68(103) NSR 0 (11) 10(A) , No pain 10:14:44 99 14 100 35.9 133/72(103) NSR 0 (11) 10(A) , No pain 10:18:50 89 11 100 29.9 126/73(105) NSR 0 (11) 9(A) , No pain 10:23:02 72 9 98 38.1 120/65(92) NSR 0 (11) 9(A) , No pain 10:27:12 88 10 99 23.9 123/66(96) NSR 0 (11) 9(A) , No pain 10:31:24 85 12 98 34.4 126/64(101) NSR 0 (11) 9(A) , No pain 10:35:29 93 12 97 38.1 127/75(103) NSR 0 (11) 9(A) , No pain 10:39:33 99 13 98 35.2 114/74(94) NSR 0 (11) 10(A) , No pain Medications Time Medication Route Dose Verified Delivered Reason Notes Effectiveness by by 9:56:55 0.9% NaCl I.V. 100 Eldon Jennifer used for ml/hr Rohan Yates adult remedial education instructor 9:57:03 Oxygen etCO2 2 Eldon Jenkinsyla used for Nasal l/min Rohan Yates procedure cannula RN 9:57:09 Lidocaine 2% added 20ml Eldon Colón for local to vial Rohan Madrigal MD anesthetic field 9:57:15 Heparin Flush added 2 Eldon Eldon used for Bag to bags Rohan Madrigal MD procedure (1000units/500ml field NS) 10:16:43 Versed I.V. 2 mg Eldon Hawkinsa for sedation Rohan Yates RN 10:16:53 Fentanyl I.V. 50 Eldon Jennifer for sedation mcg Rohan Yates RN 10:37:56 Heparin Bolus I.V. 4000 Eldon Jenkinsyla for verif ied units Rohan Yates anticoagulation with Dr. SHAYNE Madrigal 10:38:09 Integrilin I.V. 5.6 Eldon Jennifer for waste d (Bolus 2mg/ml) ml Rohan Yates antiplatelet 4.4mL RN therapy 10:40:34 Plavix P.O. 600 Eldon Hawkinsa for mg Rohan Yates antiplatelet RN therapy Procedure Log Time Note 9:33:30 Lab Result : BUN 22 mg/dl 9:33:30 Lab Result : Hemoglobin 10.3 g/dl 9:33:30 Lab Result : Creatinine 1 mg/dl 9:35:17 Patient Height : 63.78 inches 9:35:20 Patient Weight : 134.48 lbs 9:35:35 Diagnostic Cath status Elective 9:39:00 Gunjan Grimm RT(R) sent for patient. Start room use. 9:39:01 Time tracking: Regular hours (M-F 7:00 - 5:00) 9:39:05 Plan of Care:Hemodynamics will remain stable., Cardiac rhythm will remain stable., Comfort level will be maintained., Respiratory function will remain adequate., Patient/ family verbilizes understanding of procedure., Procedure tolerated without complication., Recovers from procedure without complications.. 9:53:35 Patient received from Med II to [facility] 2 Alert and oriented. Tansferred to table in Supine position. 9:53:37 Warm blankets applied, and jemal hugger turned on for patient comfort. 9:53:37 Correct patient and procedure confirmed by team. 9:53:39 Signed procedure consent form obtained from patient. 9:53:40 ECG and BP/O2 sat monitors applied to patient. 9:56:47 Vital chart was started 9:56:55 0.9% NaCl 100 ml/hr I.V. was administered by Jennifer Yates RN; used for procedure; 9:57:03 Oxygen 2 l/min etCO2 Nasal cannula was administered by Jennifer Yates RN; used for procedure; 9:57:09 Lidocaine 2% 20ml vial added to field was administered by Eldon Madrigal MD; for local anesthetic; 9:57:15 Heparin Flush Bag (1000units/500ml NS) 2 bags added to field was administered by Eldon Madrigal MD; used for procedure; 10:03:20 Baseline sample Acquired. 10:03:24 Rhythm: 1st degree heart block 10:03:27 Full Disclosure recording started 10:04:02 H&P Date Dictated: 03/10/2019 New H&P dictated by physician.. 10:04:03 Pre-procedure instructions explained to patient. 10:04:04 Pre-op teaching completed and patient verbalized understanding. 10:04:07 Family in patients room. 10:04:09 Patient NPO since Midnight. 10:04:12 Is the patient allergic to Iodine/contrast media? No. 10:04:14 Was the patient premedicated? No 10:04:16 Is patient on blood thinner?No 10:04:21 Patient diabetic? No. 10:04:24 Previous problem with sedation/anesthesia? No ? 10:04:27 Snore? No 10:04:28 Sleep apnea? No 10:04:31 Deviated septum? No 10:04:31 Opens mouth fully? Yes 10:04:32 Sticks out tongue? Yes 10:04:36 Airway obstruction? Yes copd 10:05:06 Dentures? No ? 10:06:11 Pre procedure: right dorsailis pedis pulse 1+ Palpable, but thready & weak; easily obliterated 10:06:13 Pre procedure: left dorsailis pedis pulse 1+ Palpable, but thready & weak; easily obliterated 10:06:16 Lab results completed and on chart. 10:06:31 Left groin area was prepped with chlora-prep and draped in sterile fashion 10:06:33 Alarms reviewed by R. N. 10:06:33 Sharps counted by scrub and verified by R.N. 10:15:03 Physician arrived 10:15:04 --------ALL STOP TIME OUT------ 10:15:04 Final Timeout: patient, procedure, and site verified with staff and physician. All members of the team are in agreement. 10:15:06 Left groin site verified by team. 10:15:10 Maximum allowable Isovue 370 dose 300ml. Physician notified. (300ml for normal creatinines. For patients with creatinine of 1.7 or higher multiply weight(kg) x 5 divided by creatinine.) 10:15:14 Fire Safety Assessment: A--An alcohol-based skin anteseptic being used preoperatively., C--Open oxygen or nitrous oxide is being used., D--An ESU, laser, or fiber-optic light is being used. 10:15:18 Physical assessment completed. ASA score P 2 - A patient with mild systemic disease as per Eldon Madrigal MD. 10:15:21 Sedation plan: IV Moderate Sedation Medication:Versed, Fentanyl 10:15:35 Use device set CATH PACK 10:15:36 ACIST Syringe (42866) opened to sterile field. 10:15:37 ACIST Hand Control (99712) opened to sterile field. 10:15:37 ACIST Manifold (71225) opened to sterile field. 10:15:37 Medline Cath Pack ([id number]) opened to sterile field. 10:15:38 Bag Decanter (2002S) opened to sterile field. 10:15:38 DIAGNOSTIC WIRE .035 260cm J wire (675492) opened to sterile field. 10:15:44 SHEATH 6FR [place] (ZIC811) opened to sterile field. 10:16:43 Versed 2 mg I.V. was administered by Jennifer Yates RN; for sedation; 10:16:53 Fentanyl 50 mcg I.V. was administered by Jennifer Yates RN; for sedation; 10:19:29 Zero performed for pressure channel P1 10:23:06 Procedure started. 10:24:12 Local anesthetic to left femerol artery with Lidocaine 2% by Eldon Madrigal MD.INITIAL ACCESS ONLY 10:24:56 DIAGNOSTIC Multipack 5Fr catheter set (CC9434) opened to sterile field. 10:25:11 A 6 Fr Short sheath was inserted into the Left Femoral artery 10:26:23 GLIDE WIRE Super Stiff Angled 260cm (ZB2212) opened to sterile field. 10:28:48 glide wire used to help gain access 10:29:14 5 Fr pigtail guide catheter was inserted over the wire 10:29:17 LV hemodynamics recorded. 10:29:18 LV gram done using GIBSON 10:29:21 Injector settings: Ml/sec: 5, Volume: 15, 10:29:26 EF : 30 % 10:29:29 Catheter removed. 10:29:37 5 Fr 3drc guide catheter was inserted over the wire 10:30:27 RCA angiography performed. 10:30:35 Injector settings: Ml/sec: 3, Volume: 6, 10:31:01 Catheter removed. 10:31:09 GUIDE 6FR EBU 3.0 catheter (WT1HNY01) opened to sterile field. 10:31:16 6 Fr ebu 3 guide catheter was inserted over the wire 10:32:23 LCA angiography performed. 10:32:28 Injector settings: Ml/sec: 3, Volume: 6, 10:32:44 INFLATOR Merit BasixCompak (IG2051) opened to sterile field. 10:32:52 [place] Verrata Plus pressure wire (00379S) opened to sterile field. 10:33:11 Proceeding to intervention. 10:33:19 FFR/IFR wire advanced. 10:34:45 Baseline FFR 1. 10:34:56 Wire advanced across lesion. 10:35:04 lad lesion measured at 0.82 with IFR 10:36:49 2nd Lad lesion measured at 0.92 with IFR 10:37:56 Heparin Bolus 4000 units I.V. was administered by Jennifer Yates RN; for anticoagulation; verified with Dr. Madrigal 10:38:09 Integrilin (Bolus 2mg/ml) 5.6 ml I.V. was administered by Jennifer Yates RN; for antiplatelet therapy; wasted 4.4mL 10:38:21 IFR wire removed; choice pt wire advanced across lesion 10:38:48 Place stent Inflation Number: 1 A ARIC RX 2.5 x 22 stent ([id number]) was prepped and advanced across the Mid LAD . The stent was deployed at 17 ALE for 0:10 (min:sec) . 10:38:56 Inflation number: 2 The stent balloon was then re-inflated across the Mid LAD to 13 ALE for 0:10 (min:sec) . 10:39:44 Stent catheter was removed intact over wire. 10:39:44 Wire removed. 10:39:45 Guide catheter removed. 10:39:53 EXOSEAL 6Fr (EX600) opened to sterile field. 10:40:04 Sheath removed intact; hemostasis achieved with Exoseal to the Left Femoral artery. 10:40:27 Procedure ended.(Physican Out) 10:40:34 Plavix 600 mg P.O. was administered by Jennifer Yates RN; for antiplatelet therapy; 10:41:42 Fluoroscopy time 04.70 minutes. 10:41:47 Fluoroscopy dose: 628 mGy 10:41:47 Flurop Dose total: 628 10:41:50 Contrast amount:Isovue 370 99ml. 10:42:11 Insertion/operative site no bleeding no hematoma. 10:42:15 Post-op/insertion site Left Femoral artery dressed using a 4 x 4 and Tegaderm. 10:42:18 Post procedure rhythm: unchanged. 10:42:21 Estimated blood loss: 5 ml 10:42:23 Post procedure instruction explained to patient.Patient verbalizes understanding. 10:42:23 Patient needs reinforcement of post procedure teaching. 10:42:42 Procedure type changed to Cath procedure, Diagnostic procedure, LHC, LHC w/Coronaries, FFR/IVUS, FFR Initial, Sedation Charges, Moderate Sedation up to 15 minutes, PCI procedure, Coronary Stent, Coronary Stent Initial 10:42:43 Procedure and supply charges have been captured, reviewed, submitted and are correct. 10:42:48 Procedure Complication : No complications 10:42:51 Vital chart was stopped 10:42:53 See physician's report for complete and final results. 10:42:55 Report given to Pre/Post Procedure Room. 10:43:06 Patient transfered to Pre/Post Procedure Room with Stretcher. 10:43:28 Procedure ended. 10:43:28 Full Disclosure recording stopped 10:43:35 ACC-PCI Only Patient was given prescriptions, or instructed by Eldon Madrigal MD to start/continue the following medications upon discharge: Plavix 10:43:36 End room use (Document Last) Intervention Summary Intervention Notes Time ActionType Lesion and Equipment Used Action# Pressure Duration Attributes 10:38:48 Place stent Mid LAD ARIC RX 2.5 x 1 17 00:10 22 stent ([id number]) 10:38:56 Reinflate Mid LAD ARIC RX 2.5 x 2 13 00:10 stent 22 stent balloon ([id number]) Device Usage Item Name Manufacture Quantity Catalog Hospital Part Current Minimal Lot# / Number Charge Number Stock Stock Serial# Code ACIST Syringe Acist 1 34470 977868 153019 884457 20 (02342) Medical Systems Inc ACIST Hand Acist 1 07514 135027 924183 757536 5 Control Medical (03732) Systems Inc ACIST Manifold Acist 1 40831 088715 250144 498957 5 (21139) Medical Systems Inc Medline Cath Medline 1 [id number] 186253 77267 554019 5 Pack ([id number]) Bag Decanter Microtek 1 310978 09684 240379 5 () Medical Inc. DIAGNOSTIC [place] 1 515415 493026 589631 227481 30 WIRE .035 260cm J wire (806983) SHEATH 6FR Terumo 1 ZCV855 358065 705901 865310 40 [place] (QOM025) DIAGNOSTIC Cardinal 1 RV5760 935172 67944 042869 30 Multipack 5Fr Health catheter set (FO0211) GLIDE WIRE Terumo 1 BW4888 365443 107799 313808 5 Super Stiff Angled 260cm (LQ0223) GUIDE 6FR EBU Medtronic 1 [id number] 134281 57408 614192 0 3.0 catheter ([id number]) INFLATOR Merit Merit 1 XZ1452 590282 451986 568347 [facility] (XH8075) [place] 1 71444M 560952 884142203 396741 5 Verrata Plus pressure wire (80077Z) ARIC RX 2.5 x Medtronic 1 [id number] 860383 3232811 588890 5 [id number] 22 stent ([id number]) EXOSEAL 6Fr Cardinal 1 EX600 637682 514520 325706 10 (EX600) Health Signature Audit [place] Stage Time Signature Unsigned Intra-Procedure 03/10/2019 Gunjan Grimm 10:45:09 AM RT(R) Signatures Monitor : Gunjan Grimm RT Signature : Date : Time : [address] [place] [address]
[~2019-03-09 08:49] MED LIST changes: +COREG6.25 MG PO; +CYCLOBENZAPRINE5 MG PO; +DIOVAN80 MG PO; +LIPITOR20 MG PO; +RANITIDINE HCL150 M1 PO; +TRILEPTAL300 MG PO; +ULTRAM50 MG PO
[2019-03-09 09:51] LABS: APTT 32.6 SECONDS (22.8-39.4); INR 1.09 (0.85-1.17); PROTIME 13.6 SECONDS (11.6-15.0)
[2019-03-09 09:57] LABS: ALBUMIN 3.2 g/dL (3.4-5.0); ALKALINE PHOSPHATASE 109 U/L (46-116); ALT (SGPT) 18 U/L (10-68); BILIRUBIN - TOTAL 0.37 mg/dL (0.2-1.3); CALC OSMOLALITY 290 mosm/kg (275-300); CALCIUM 8.8 mg/dL (8.5-10.1); CARBON DIOXIDE 28.8 mmol/L (21.0-32.0); CHLORIDE - SERUM 107 mmol/L (98-107); CREATININE - SERUM 0.9 mg/dL (0.6-1.3); GLUCOSE 167 mg/dL (74-106); POTASSIUM - SERUM 3.9 mmol/L (3.5-5.1); PROTEIN - SERUM 6.9 g/dL (6.4-8.2); SODIUM 142 mmol/L (136-145); UREA NITROGEN 25 mg/dL (7-18); eGFR NON AFRICAN AMERICAN 64 mL/min (90-120)
[2019-03-09 09:58] LABS: BASOPHILS 0 % (0-2); EOSINOPHILS 1.5 % (0-7); HEMATOCRIT 35.8 % (36.0-48.0); HEMOGLOBIN 11.8 g/dL (12-16); IMMATURE GRANULOCYTES 0.2 % (0-5); LYMPHOCYTES 17.6 % (15-50); MCH 32.2 pg (26.0-34.0); MCV 97.8 fL (80.0-100.0); MEAN PLATELET VOLUME 9.8 fL (7.4-10.4); MONOCYTES 7.8 % (2-11); NEUTROPHILS 72.9 % (40-80); PLATELET COUNT 175 10x3/uL (130-400); RBC 3.66 10x6/uL (4.00-5.40); RDW 12.8 % (11.5-14.5); WBC 4.8 10x3/uL (4.8-10.8)
[2019-03-09 10:12] LABS: CKMB 0.9 U/L (0.0-3.6); CREATINE KINASE 45 UL (21-215); MAGNESIUM - SERUM 2.2 mg/dL (1.8-2.4)
[2019-03-09 10:19] LABS: TROPONIN-I 0.067 ng/mL (0.000-0.060)
[2019-03-09 11:56] VITALS: BP 149/80; Ht 162.6 cm; Wt 61.6 kg
[2019-03-09 12:06] VITALS: BP 149/80
--- NOTE | 2019-03-09 12:40 | NUR ---
CONSENTS SIGNED FOR [facility].
[2019-03-09 15:04] VITALS: BP 132/75
--- NOTE | 2019-03-09 19:39 | NUR ---
INITIAL ROUNDS AND ASSESSMENT COMPLETED. PT RESTING IN BED. NO DISTRESS. MONITOR AND CPOC. CALL LIGHT IN REACH.
[2019-03-09 20:00] VITALS: BP 124/61
--- NOTE | 2019-03-09 20:09 | NUR ---
PT PERMISSION TO SPEAK WITH HER DAUGHTER, YUMIKO, AND GIVE UPDATE VIA PHONE CALL. SPOKE WITH YUMIKO. INSTRUCTED PT ON NPO AFTER MIDNIGHT FOR [facility] VIA DR MANCILLA IN THE AM.
[2019-03-10] VITALS: BP 131/67
[2019-03-10 04:00] VITALS: BP 126/67
[2019-03-10 05:41] LABS: BASOPHILS 0 % (0-2); EOSINOPHILS 3.1 % (0-7); HEMATOCRIT 31.9 % (36.0-48.0); HEMOGLOBIN 10.3 g/dL (12-16); IMMATURE GRANULOCYTES 0.3 % (0-5); MCH 31.5 pg (26.0-34.0); MCHC 32.3 g/dL (31.0-37.0); MCV 97.6 fL (80.0-100.0); MEAN PLATELET VOLUME 9.5 fL (7.4-10.4); MONOCYTES 12.3 % (2-11); NEUTROPHILS 60.3 % (40-80); PLATELET COUNT 149 10x3/uL (130-400); RBC 3.27 10x6/uL (4.00-5.40); RDW 12.7 % (11.5-14.5); WBC 3.9 10x3/uL (4.8-10.8)
[2019-03-10 06:07] LABS: ANION GAP 10.2 mmol/L (8-16); CALCIUM 8.3 mg/dL (8.5-10.1); CARBON DIOXIDE 27.6 mmol/L (21.0-32.0); POTASSIUM - SERUM 3.8 mmol/L (3.5-5.1)
--- NOTE | 2019-03-10 07:34 | NUR ---
ROUNDING DONE WITH PATIENT BEING NPO STATUS AT THIS TIME. [facility] FOR TODAY, PERMITS SIGNED. ON HEART MONITOR SHOWING SR W 1 ST AVB, HR 75. RIGHT FA PIV SEEN WITH NS INFUSING AT 30 CC/HR, ORANGE SWAB CAP IN USE.
[2019-03-10 09:04] VITALS: BP 125/60
--- NOTE | 2019-03-10 09:49 | NUR ---
PATIENT IS GIVEN PRE-OP MEDS FOR HEART CATH.
--- NOTE | 2019-03-10 10:06 | NUR ---
TO INFORMATION SYSTEMS PROJECT MANAGER VIA BED.
--- NOTE | 2019-03-10 10:46 | HP ---
PATIENT: CORTNEY ORLANDO MEDICAL RECORD: [id number] ACCOUNT: [id number] LOCATION:[facility] D.2116 : 38 ADMISSION DATE: 03/09/19 PCP: FORREST LOPEZ HISTORY AND PHYSICAL EXAMINATION DATE OF SERVICE: 03/09/2019 ADMITTING DIAGNOSES: 1. Non-Q-wave myocardial infarction. 2. Coronary artery disease. 3. Previous multivessel PTCA and stent. 4. Hypertension. 5. Hyperlipidemia. 6. Abnormal ECG. HISTORY OF PRESENT ILLNESS: Ms. Orlando presented last week with chest pain, underwent cardiac catheterization by Dr. Jarrett from a radial approach with overall poor visualization of the LAD. There were multiple stents in the LAD and possibly areas of significant stenosis. No intervention was undertaken. She presented back to [place] with increasing episodes of chest pain. Troponin was normal there, however, troponin is now elevated here. She continues to have chest pressure. PHYSICAL EXAMINATION: GENERAL APPEARANCE: Well-nourished, well-developed, appears stated age. Level of distress, comfortable. PSYCHIATRIC: Mental status, alert, normal affect. Orientation, oriented to time, place and person. EYES: Lids and conjunctiva, noninjected. No discharge, no pallor. ENT: Lips, teeth, gums, normal dentition. Oropharynx, no cyanosis, no pallor. NECK: Carotid arteries, bilateral normal upstroke, no bruits, no thrills. JUGULAR VEINS: No jugular venous pressure or distention. CERVICAL LYMPH NODES: Nontender, nonenlarged. THYROID: Not enlarged. Nontender. No nodules. LUNGS: Respiratory effort, unlabored. CHEST: Normal curvature. No thoracic deformity. No chest wall tenderness. Percussion, resonant. Auscultation, clear. No wheezes, no rales, no rhonchi. CARDIOVASCULAR: Precordial exam, nondisplaced. No heaves or pericardial thrills. Rate and rhythm, regular. Heart sounds, normal S1, normal S2. No S3, no gallop, no rub. Systolic murmur, not heard. Diastolic murmur, not heard. EXTREMITIES: No cyanosis, no edema. Peripheral pulses, full and equal in all extremities, except as noted. No bruits appreciated. ABDOMEN: Soft, nondistended. Normal aorta. No bruit. Nontender. No masses. Liver, nontender, no hepatomegaly. Spleen, nontender, no splenomegaly. MUSCULOSKELETAL: No joint tenderness. No joint swelling. No erythema. NEUROLOGICAL: Normal gait, normal strength, normal tone. SKIN: Warm and dry. OVERALL IMPRESSION: Non-Q-wave myocardial infarction. Her EKG shows ST-T abnormalities suggestive of anterolateral ischemia. Most likely, she does have significant disease of the LAD. We will proceed with repeat cardiac catheterization through the femoral approach tomorrow for better visualization of the LAD in light of the non-Q-wave myocardial infarction and continued unstable coronary syndrome pain. We will optimize her medical management today to try to make her pain free. HISTORY AND PHYSICAL [id number] CORTNEY ORLANDO TRANSINT:[id number] Voice Confirmation ID: [id number] DOCUMENT ID: [id number] HYACINTH MANCILLA MD at 1046 CC: [id number] DICTATION DATE: 03/09/19 1114 TEASELER: 03/09/19 1319 REG [facility] [address] [place] [address]
[2019-03-10] MEDS ORDERED: BAYER CHEWABLE81 MG PO (10:52)
[2019-03-10] MEDS ORDERED: PLAVIX75 MG PO (10:52)
--- NOTE | 2019-03-10 10:58 | NUR ---
PT ARRIVED BY STRETCHER. PLACED ON MONITORS. ASSESSMENT COMPLETED.
--- NOTE | 2019-03-10 11:05 | NUR ---
LEFT GROIN ASSESSED. SMALL HEMATOMA STARTED. PRESSURE APPLIED AND HEMATOMA SOFTENED. FEMSTOP APPLIED TO LEFT GROIN AT 138mmHg. LEFT PEDAL PULSE WEAK, BUT PALPABLE. WARM TO TOUCH. CAP REFILL < 3 SECS. VSS AT THIS TIME. PT C/O PAIN. WILL GIVE PAIN MEDICATOIN ORDERED TO TREAT PT'S STATED HIP PAIN OF 10/10.
--- NOTE | 2019-03-10 11:20 | NUR ---
VSS. LEFT GROIN DRESSING C/D/I. FEMSTOP IN PLACE AT 138mmHg. TOLERATING WELL.
--- NOTE | 2019-03-10 11:30 | NUR ---
PT'S FAMILY AT BEDSIDE. UPDATED ON PT'S STATUS. VSS. PT TOLERATING FEMSTOP AT THIS TIME. LEFT LEG WARM TO TOUCH.
--- NOTE | 2019-03-10 12:01 | NUR ---
PT RESTING COMFORTABLY AT THIS TIME. FAMILY AT BEDSIDE. SHE STATES HER PAIN IS A ZERO. LEFT GROIN WITH FEMSTOP. PRESSURE DECREASED TO 118mmHg. NO S/S OF HEMATOMA AT THIS TIME. VSS. WILL CONTINUE TO MONITOR.
--- NOTE | 2019-03-10 12:16 | NUR ---
DR. MANCILLA ROUNED AND SPOKE WITH PT AND PT'S FAMILY.
--- NOTE | 2019-03-10 12:20 | NUR ---
FEMSTOP TO LEFT GROIN WEANED DOWN TO 100mmHg. TOLERATED WELL. NO BLEEDING/HEMATOMA NOTED. VSS
--- NOTE | 2019-03-10 12:40 | NUR ---
FEMSTOP WEANED DOWN TO 80mmHg. TOLERATING WELL. NO BLEEDING/HEMATOMA NOTED.
--- NOTE | 2019-03-10 13:00 | NUR ---
FEMSTOP WEANED TO 60mmHg. TOLERATING WELL. NO BLEEDING/HEMATOMA NOTED. VSS. CALL LIGHT WITHIN REACH. RESTING COMFORTABLY.
--- NOTE | 2019-03-10 13:15 | NUR ---
FEMSTOP WEANED DOWN TO 30mmHg. TOLERATING WELL. VSS. NO NEEDS AT THIS TIME.
--- NOTE | 2019-03-10 13:45 | NUR ---
FEMSTOP OFF COMPLETELY. SMALL BRUISING NOTED AT DRESSING SITE, BUT NO BLEEDING/HEMATOMA. PT ON BEDPAN. VOIDED WITHOUT DIFFICULTY. MARYA-CARE GIVEN.
--- NOTE | 2019-03-10 14:00 | NUR ---
LEFT GROIN DRESSING C/D/I. NO S/S OF HEMATOMA NOTED. VSS. PT'S HEAD OF BED INC SLIGHTLY. CALL LIGHT WITHIN REACH. WILL CONTINUE TO MONITOR.
--- NOTE | 2019-03-10 14:15 | NUR ---
PT'S HEAD OF BED INC TO 30 DEGREES. TOLERATED WELL. VSS. SET UP WITH SANDWICH TRAY AND DRINK. DENIES NAUSEA. LEFT GROIN DRESSING C/D/I. NO S/S OF HEMATOMA NOTED.
--- NOTE | 2019-03-10 14:45 | NUR ---
RIGHT FA PIV D/C'D WITH CATH TIP INTACT. PT TOLERATED WELL. PT ASSISTED WITH DRESSING. ABLE TO AMBULATE WITH ASSIST. TAKEN TO RESTROOM AND VOIDED WITHOUT DIFFICULTY. WAITING ON PT'S [id number] SO THAT WE CAN GO OVER DISCHARGE INSTRUCTIONS WITH HER ALSO.
--- NOTE | 2019-03-10 14:45 | NUR ---
DR. BARROSO AT BEDSIDE SPEAKING WITH PT AND PT'S FAMILY. UPDATED THEM ON PET SCAN RESULTS.
--- NOTE | 2019-03-10 15:10 | NUR ---
DISCUSSED DISCHARGE INSTRUCTIONS WITH PT AND PT'S FAMILY. THEY VOICED UNDERSTANDING. PT'S LEFT GROIN DRESSING IS C/D/I. NO S/S OF HEMATOMA NOTED.
--- NOTE | 2019-03-10 15:15 | NUR ---
PT TAKEN OUT TO VEHICLE BY WHEELCHAIR. NO S/S OF DISTRESS NOTED. ALL BELONGINGS AND PAPERWORK IN HAND.
--- NOTE | 2019-03-12 11:19 | OP ---
PATIENT NAME: CORTNEY IRELAND MEDICAL RECORD: [id number] :38 LOCATION:D.CAT ADMISSION DATE: SURGEON: HYACINTH MANCILLA MD DATE OF OPERATION: 03/10/2019 PROCEDURES: 1. PTCA stent LAD. 2. IFR. 3. Left heart catheterization. 4. Selective coronary angiography. 5. Left ventriculogram. INDICATION: Non-Q-wave myocardial infarction, unstable angina, acute coronary syndrome. PROCEDURE IN DETAIL: After informed consent was obtained and after a detailed description of the risks, benefits as well as alternative therapies, the patient elected to proceed with angiogram and angioplasty. The left femoral area was prepped and draped in normal sterile fashion. The left femoral artery was cannulated via modified Seldinger technique with placement of 6-Frisian sheath. All catheters exchanged through this sheath. FINDINGS: The left ventriculogram was performed in standard 30-degree GIBSON view reveals global hypokinesis throughout all segments. Overall ejection fraction in the 30% to 35% range. SELECTIVE CORONARY ANGIOGRAPHY: 1. Left main is with no significant angiographic disease. 2. Left anterior descending has multiple previously placed stents. There are 2 areas of possible in-stent restenosis that is significant. Mid vessel, the IFR was normal, but in the distal vessel, the IFR was abnormal at 0.82. Hence, this was the flow limiting area of stenosis. 3. The left circumflex is small, nondominant with no significant disease. 4. The right coronary artery has multiple previously placed stents. These are widely patent with no significant restenosis. PTCA STENT OF THE LAD: The stent used was a 2.5 x 22 mm Kimo. Result was 0% residual stenosis. OVERALL IMPRESSION: Successful percutaneous transluminal coronary angioplasty stent of the left anterior descending going from greater than 80% initial stenosis that was in-stent restenosis with abnormal IFR to 0% residual stenosis. TRANSINT:[id number] Voice Confirmation ID: [id number] DOCUMENT ID: [id number] HYACINTH MANCILLA MD at 1119 CC: [id number] DICTATION DATE: 03/10/19 1044 JAVA ANALYST: 03/10/19 1100 DEP CLI 03/10/19 [place] [address]
== END 2019-03-10 15:15 | disposition home or self-care (01) ==
LOC: D.M2 08:49 → D.ER 08:49 → D.CLR 08:49 → D.CATH 08:49 → D.ER 11:00 → D.CATH 11:00 → D.ER 11:00 → EDSTATUS 11:02 → D.M2 11:47 → D.CLR 03-10 10:49 → D.CATH 03-10 15:15
PROVIDERS: Family Medicine; ATTEND Internal Medicine Interventional Cardiology
DX: I21.4 Non-ST elevation (NSTEMI) myocardial infarction (principal); I24.9 Acute ischemic heart disease, unspecified; Z01.812 Encounter for preprocedural laboratory examination
CPT/HCPCS: C9600; 93458; 93571

== ENCOUNTER 2019-03-12 02:00 | Inpatient (IN) | payer MEDICARE, MEDICAID ==
[~2019-03-12] VITALS: Ht 162.6 cm; Wt 60.0 kg
--- NOTE | ~2019-03-12 | HEMODYNAMI ---
PATIENT:CORTNEY IRELAND MEDICAL RECORD: [id number] : 38 LOCATION:[facility] D.2123 ADMISSION DATE: 03/12/19 Generatedon:03/26/201918:54 Patient name: CORTNEY IRELAND Patient #: [id number] SSN: : Date of study: 03/26/2019 Page: Of Hemodynamic Procedure Report Patient Data Patient Demographics Procedure consent was obtained First Name: CORTNEY Gender: Female Last Name: SHU : 1940 [facility] Initial: EUNICE Age: 79 year(s) Patient #: [id number] Race: Unknown Additional ID: [id number] Contact details Address: [address] [place] [address] [facility] State: [place] City: [place] Zip code: [address] Past Medical History Allergies Allergen Reaction Date Comments Reported Bactrim 07/12/2017 Other allergy 10/31/2017 BACTRIM Other allergy 03/02/2019 Bactrim Admission Admission Data Admission Date: 03/12/2019 Admission Time: 2:27 Room #: D.2123 Procedure Procedure Types Cath Procedure Diagnostic Procedure [facility] w/Coronaries Sedation Charges Moderate Sedation up to 15 minutes PCI Procedure AMI/SVG/PIPE ROLLER PTCA or Stent AMI-BMS/ANDREE Initial Procedure Description Procedure Date Procedure Date: 03/26/2019 Procedure Start Time: 18:20 Procedure End Time: 18:41 Procedure Staff Name Function Eldon Madrigal MD Performing Physician Gunjan Grimm RT Monitor Tad Mandujano RT Scrub Elliot Zamarripa RN Nurse Procedure Data Cath Procedure Fluoroscopy Diagnostic fluoroscopy Total fluoroscopy Time: 3.9 time: 3.9 min min Diagnostic fluoroscopy Total fluoroscopy dose: 281 dose: 281 mGy mGy Contrast Material Contrast Material Type Amount (ml) Isovue 300 95 Entry Location Entry Primary Successful Side Size Upsize Upsize Entry Closure Succes sful Closure Location (Fr) 1 (Fr) 2 (Fr) Remarks Device Remarks Femoral Right 6 Fr Exoseal artery Short Estimated blood loss: 5 ml Diagnostic catheters Device Type Used For End Catheter Placement DIAGNOSTIC 3DRC 5Fr Right Coronary catheter ([id number]) Angiography DIAGNOSTIC Pigtail 5Fr LV Angiography catheter ([id number]) Procedure Complications No complications Procedure Medications Medication Administration Route Dosage Oxygen NRB 12 l/min Lidocaine 2% added to field 20 Heparin Flush Bag added to field 2 bags (1000units/500ml NS) 0.9% NaCl I.V. 100 ml/hr Lopressor I.V. 5 mg Heparin Bolus I.V. 4000 units Integrilin (Bolus I.V. 5.6 ml 2mg/ml) Integrilin (Bolus I.C. 5.6 ml 2mg/ml) Plavix P.O. 600 mg Amiodarone Loading 150 mg Dose (150mg/100ml D5W) Hemodynamics Rest Heart Rate: 105 (bpm) Pressure Samples Time Site Value (mmHg) Purpose Heart Use Rate(bpm) 18:23 LV 94/17,27 Snapshot 107 Snapshots Pre Cath Intra NCS Post Cath Vital Signs Time Heart Resp SPO2 etCO2 NIBP (mmHg) Rhythm Pain Sedation Rate (ipm) (%) (mmHg) Status Level (bpm) 18:18:17 105 30 87 0 141/94(118) NSR w/ ST 0 (11) 10(A) Elevation , No pain 18:22:25 105 23 84 0 134/89(109) NSR w/ ST 0 (11) 10(A) Elevation , No pain 18:26:26 108 21 85 0 144/96(122) NSR w/ ST 0 (11) 10(A) Elevation , No pain 18:30:38 87 18 89 0 120/76(106) NSR w/ ST 0 (11) 10(A) Elevation , No pain 18:34:42 82 31 86 0 119/77(99) NSR w/ ST 0 (11) 10(A) Elevation , No pain 18:38:48 79 28 86 0 100/66(71) NSR w/ ST 0 (11) 10(A) Elevation , No pain Medications Time Medication Route Dose Verified Delivered Reason Notes Effectiveness by by 18:22:15 Oxygen NRB 12 Eldon Zarate used for l/min 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 100 Eldonsevero Puckettie Per physician ml/hr Rohan Zamarripa RN 18:24:05 Lopressor I.V. 5 mg Eldon Zarate Per physician Rohan Zamarripa RN 18:26:22 Heparin Bolus I.V. 4000 Eldon Puckettie for verif ied units Rohan Zamarripa RN anticoagulation with dr madrigal 18:27:36 Integrilin I.V. 5.6 Eldon Puckettie Per physician waste d (Bolus 2mg/ml) ml Rohan Zamarripa RN 4.4 ml of vial 18:30:10 Integrilin I.C. 5.6 Eldon Eldon Per physician waste d (Bolus 2mg/ml) ml Rohan Madrigal MD 4.4 ml of vial 18:39:55 Plavix P.O. 600 Eldon Puckettie for mg Rhoan Zamarripa RN antiplatelet therapy 18:44:33 Amiodarone I.V. 150 Eldon Puckettie Per physician Loading Dose loading mg Rohan Zamarripa RN (150mg/100ml dose D5W) Procedure Log Time Note 17:54:56 Tad Mandujano RT(R) sent for patient. Start room use. 17:54:57 Time tracking: Regular hours (M-F 7:00 - 5:00) 17:55:02 Plan of Care:Hemodynamics will remain stable., Cardiac rhythm will remain stable., Comfort level will be maintained., Respiratory function will remain adequate., Patient/ family verbilizes understanding of procedure., Procedure tolerated without complication., Recovers from procedure without complications.. 18:02:21 Patient received from Med II to CCL 1 Alert and oriented. Tansferred to table in Supine position. 18:03:57 Warm blankets applied, and jemal hugger turned on for patient comfort. 18:03:57 Correct patient and procedure confirmed by team. 18:03:59 Signed procedure consent form obtained from patient. 18:04:00 ECG and BP/O2 sat monitors applied to patient. 18:08:38 patient hooked up to monitor immediately; patient in V-tach; quick combo pads placed; shocked at 100j; patient out of v tach 18:17:11 Vital chart was started 18:17:12 Baseline sample Acquired. 18:17:15 Rhythm: sinus tachycardia 18:17:17 Full Disclosure recording started 18:17:22 H&P Date Dictated: 03/26/2019 New H&P dictated by physician.. 18:17:23 Pre-procedure instructions explained to patient. 18:17:23 Pre-op teaching completed and patient verbalized understanding. 18:17:25 Family in waiting room. 18:17:26 Patient NPO since Midnight. 18:17:28 Is the patient allergic to Iodine/contrast media? No. 18:17:29 Was the patient premedicated? No 18:17:30 Is patient on blood thinner?No 18:17:32 Patient diabetic? No. 18:17:34 Previous problem with sedation/anesthesia? No ? 18:17:37 Snore? No 18:17:38 Sleep apnea? No 18:17:38 Deviated septum? No 18:17:39 Opens mouth fully? Yes 18:17:40 Sticks out tongue? Yes 18:17:42 Airway obstruction? Yes copd 18:17:45 Dentures? No ? 18:17:48 Pre procedure: right dorsailis pedis pulse Doppler 18:17:51 Pre procedure: left dorsailis pedis pulse Doppler 18:17:53 Patient pain scale 0/10 ?. 18:17:59 IV patent on arrival in port with 0.9% NaCl at KVO. 18:18:01 Lab results completed and on chart. 18:18:03 Alarms reviewed by R. N. 18:18:03 Sharps counted by scrub and verified by R.N. 18:18:04 Physician arrived 18:18:04 --------ALL STOP TIME OUT------ 18:18:05 Final Timeout: patient, procedure, and site verified with staff and physician. All members of the team are in agreement. 18:18:08 Right groin site verified by team. 18:18:11 Fire Safety Assessment: A--An alcohol-based skin anteseptic being used preoperatively., C--Open oxygen or nitrous oxide is being used., D--An ESU, laser, or fiber-optic light is being used. 18:18:13 Physical assessment completed. ASA score P 4 - A patient with severe systemic disease that is a constant threat to life as per Eldon Madrigal MD. 18:18:24 3b) 30-44 Moderately reduced kidney function. 18:18:49 Maximum allowable contrast does (3.7 X eGFR X 0.75)116 ml. 18:18:56 Sedation plan: IV Moderate Sedation Medication:Versed, Fentanyl 18:18:59 Use device set Femoral Dx 18:19:00 ACIST Syringe (05130) opened to sterile field. 18:19:00 Bag Decanter (2002S) opened to sterile field. 18:19:01 Medline Cath Pack ([id number]) opened to sterile field. 18:19:01 ACIST Hand Control (45252) opened to sterile field. 18:19:02 ACIST Manifold (13047) opened to sterile field. 18:19:03 Tegaderm 4 x 4 (1626W) opened to sterile field. 18:19:05 EMERALD Guide Wire (502-186) opened to sterile field. 18:20:05 Procedure started. 18:20:08 Local anesthetic to right femoral artery with Lidocaine 2% by Eldon Madrigal MD.INITIAL ACCESS ONLY 18:20:31 SHEATH 6FR [place] (QMC797) opened to sterile field. 18:20:32 A 6 Fr Short sheath was inserted into the Right Femoral artery 18:21:18 GUIDE 6FR XBLAD 3.5 catheter ([id number]) opened to sterile field. 18:22:11 A DIAGNOSTIC 3DRC 5Fr catheter (120096A) was advanced over the wire and used for Right Coronary Angiography. 18:22:15 Oxygen 12 l/min NRB was administered by Elliot Zamarripa RN; used for procedure; 18:22:17 RCA angiography performed. 18:22:19 Injector settings: Ml/sec: 3, Volume: 6, 18:22:27 Catheter removed. 18:22:34 A DIAGNOSTIC Pigtail 5Fr catheter ([id number]) was advanced over the wire and used for LV Angiography. 18:23:33 LV hemodynamics recorded. 18:23:35 LV gram done using GIBSON 18:23:41 EF : 20 % 18:23:46 Lidocaine 2% 20ml vial added to field was administered by Eldon Madrigal MD; for local anesthetic; 18:23:51 Heparin Flush Bag (1000units/500ml NS) 2 bags added to field was administered by Eldon Madrigal MD; used for procedure; 18:24:00 0.9% NaCl 100 ml/hr I.V. was administered by Elliot Zamarripa RN; Per physician; 18:24:00 Catheter removed. 18:24:05 Lopressor 5 mg I.V. was administered by Elliot Zamarripa RN; Per physician; 18:24:12 6 Fr xblad 3.5 guide catheter was inserted over the wire 18:26:22 Heparin Bolus 4000 units I.V. was administered by Elliot Zamarripa RN; for anticoagulation; verified with dr madrigal 18:26:35 GRAPHIX 182cm guide wire ([id number]) opened to sterile field. 18:26:35 INFLATOR Merit BasixCompak (OI1493) opened to sterile field. 18:26:56 GRAPHIX 182cm guide wire ([id number]) opened to sterile field. 18:27:36 Integrilin (Bolus 2mg/ml) 5.6 ml I.V. was administered by Elliot Zamarripa RN; Per physician; wasted 4.4 ml of vial 18:27:36 graphix wire advanced. 18:27:41 Wire advanced across lesion. 18:28:18 Inflate balloon Inflation number: 1 A EUPHORA 2.5 x 20 Balloon ([id number]) was prepped and advanced across the Mid LAD , then inflated to 13 ALE for 0:10 (min:sec) . 18:28:25 Inflation number: 2 The EUPHORA 2.5 x 20 Balloon ([id number]) was reinflated across the Mid LAD , to 13 ALE for 0:10 (min:sec) . 18:28:33 Inflation number: 3 The EUPHORA 2.5 x 20 Balloon ([id number]) was reinflated across the Mid LAD , to 17 ALE for 0:10 (min:sec) . 18:28:39 Inflation number: 4 The EUPHORA 2.5 x 20 Balloon (OGP9590E) was reinflated across the Mid LAD , to 17 ALE for 0:10 (min:sec) . 18:29:00 Inflation number: 5 The EUPHORA 2.5 x 20 Balloon ([id number]) was reinflated across the Mid LAD , to 5 ALE for 0:10 (min:sec) . 18:29:16 Inflation number: 6 The EUPHORA 2.5 x 20 Balloon ([id number]) was reinflated across the Mid LAD , to 3 ALE for 0:10 (min:sec) . 18:30:10 Integrilin (Bolus 2mg/ml) 5.6 ml I.C. was administered by Eldon Madrigal MD; Per physician; wasted 4.4 ml of vial 18:30:25 Balloon removed over the wire. 18:32:13 Inflation number: 7 The EUPHORA 2.5 x 20 Balloon ([id number]) was reinflated across the Mid LAD , to 13 ALE for 0:10 (min:sec) . 18:32:26 Inflation number: 8 The EUPHORA 2.5 x 20 Balloon (OSZ1394E) was reinflated across the Mid LAD , to 13 ALE for 0:10 (min:sec) . 18:32:46 Balloon removed over the wire. 18:34:33 Place stent Inflation Number: 9 A COBRA RX 2.5 X 30 Stent was prepped and advanced across the Mid LAD . The stent was deployed at 13 ALE for 0:10 (min:sec) . 18:35:03 Stent catheter was removed intact over wire. 18:35:04 Wire removed. 18:35:04 Guide catheter removed. 18:35:53 EXOSEAL 6Fr (EX600) opened to sterile field. 18:39:10 Quick Combo opened to sterile field. 18:39:55 Plavix 600 mg P.O. was administered by Elliot Zamarripa RN; for antiplatelet therapy; 18:40:39 Sheath removed intact; hemostasis achieved with Exoseal to the Right Femoral artery. 18:40:42 Procedure ended.(Physican Out) 18:40:51 Fluoroscopy time 03.90 minutes. 18:40:57 Fluoroscopy dose: 281 mGy 18:40:57 Flurop Dose total: 281 18:41:01 Contrast amount:Isovue 300 95ml. 18:41:06 Sharps counted by scrub and verified by R.N. 18:41:08 Insertion/operative site no bleeding no hematoma. 18:41:11 Post-op/insertion site Right Femoral artery dressed using a 4 x 4 and Tegaderm. 18:41:12 Post Procedure Pulses reassessed and unchanged 18:41:17 Post procedure rhythm: sinus rhythm 18:41:19 Estimated blood loss: 5 ml 18:41:21 Post procedure instruction explained to patient.Patient verbalizes understanding. 18:41:21 Patient needs reinforcement of post procedure teaching. 18:41:40 Procedure type changed to Cath procedure, Diagnostic procedure, LHC, LHC w/Coronaries, Sedation Charges, Moderate Sedation up to 15 minutes, PCI procedure, AMI/SVG/PIPE ROLLER PTCA or Stent, AMI-BMS/ANDREE Initial 18:41:41 Procedure and supply charges have been captured, reviewed, submitted and are correct. 18:41:47 Procedure Complication : No complications 18:41:49 Vital chart was stopped 18:41:49 See physician's report for complete and final results. 18:41:52 Report given to [facility]. 18:41:55 Patient transfered to [facility] with Stretcher. 18:41:57 Procedure ended. 18:41:57 Full Disclosure recording stopped 18:42:05 ACC-PCI Only Patient was given prescriptions, or instructed by Eldon Madrigal MD to start/continue the following medications upon discharge: Plavix 18:42:06 End room use (Document Last) 18:44:33 Amiodarone Loading Dose (150mg/100ml D5W) 150 mg I.V. loading dose was administered by Elliot Zamarripa RN; Per physician; Intervention Summary Intervention Notes Time ActionType Lesion and Equipment Action# Pressure Duration Attributes Used 18:28:18 Inflate Mid LAD EUPHORA 1 13 00:10 balloon 2.5 x 20 Balloon ([id number]) 18:28:25 Reinflate Mid LAD EUPHORA 2 13 00:10 balloon 2.5 x 20 Balloon (YUI2724O) 18:28:33 Reinflate Mid LAD EUPHORA 3 17 00:10 balloon 2.5 x 20 Balloon ([id number]) 18:28:39 Reinflate Mid LAD EUPHORA 4 17 00:10 balloon 2.5 x 20 Balloon ([id number]) 18:29:00 Reinflate Mid LAD EUPHORA 5 5 00:10 balloon 2.5 x 20 Balloon (IEU7785S) 18:29:16 Reinflate Mid LAD EUPHORA 6 3 00:10 balloon 2.5 x 20 Balloon (GRZ9688N) 18:32:13 Reinflate Mid LAD EUPHORA 7 13 00:10 balloon 2.5 x 20 Balloon (HTI0464O) 18:32:26 Reinflate Mid LAD EUPHORA 8 13 00:10 balloon 2.5 x 20 Balloon ([id number]) 18:34:33 Place stent Mid LAD COBRA RX 9 13 00:10 2.5 X 30 Stent Device Usage Item Name Manufacture Quantity Catalog Number Hospital Part Current Minimal Lot# / Charge Number Stock Stock Serial# Code ACIST Syringe Acist 1 68267 143494 713372 987409 20 (91002) Medical Systems Inc Bag Decanter Microtek 1 2001S 304964 42686 614980 5 (2001S) Medical Inc. Medline Cath Medline 1 [id number] 387388 78832 538885 5 Pack ([id number]) ACIST Hand Acist 1 19862 570999 294248 390494 5 Control Medical (99597) Systems Inc ACIST Manifold Acist 1 44988 636627 319386 594806 5 (43563) Medical Systems Inc Tegaderm 4 x 4 3M 1 1626W 602600 050843 057600 5 (1626W) EMERALD Guide Cardinal 1 502-455 306263 314433 081255 5 Wire (502-455) Health SHEATH 6FR Terumo 1 KXD061 034561 435866 637440 40 [place] (ULO435) GUIDE 6FR Cardinal 1 94620171 942657 180608 697712 10 XBLAD 3.5 Health catheter (98135332) DIAGNOSTIC Cardinal 1 970360E 486182 723970 392886 9 3DRC 5Fr Health catheter (388484B) DIAGNOSTIC Cardinal 1 [id number] 607716 613113 517329 5 Pigtail 5Fr Health catheter (812927U) GRAPHIX 182cm Oxford 2 [id number] 326217 972834 031971 5 guide wire Scientific ([id number]) INFLATOR Merit Merit 1 KC6162 337724 444512 916341 15 [facility] Campus[facility] Decimal (ZV0886) EUPHORA 2.5 x Medtronic 1 [id number] 750059 021184 734572 5 [id number] 20 Balloon ([id number]) COBRA RX 2.5 X Celonova 1 243060 [id number] 576066 1 [id number] 30 stent Biosciences () EXOSEAL 6Fr Cardinal 1 EX600 728726 600503 784369 10 (EX600) TheShoppingPro 1 29284-642413 115780 606804 046402 5 Signature Audit [place] Stage Time Signature Unsigned Intra-Procedure 03/26/2019 Gunjan Grimm 6:54:18 PM RT(R) Signatures Monitor : Gunjan Grimm RT Signature : Date : Time : [place] [id number] [place] [address]
--- NOTE | ~2019-03-12 | PN ---
PATIENT:CORTNEY ORLANDO MEDICAL RECORD: [id number] LOCATION:D.M2 D.212 ADMISSION DATE: 03/12/19 PROGRESS NOTE DATE OF SERVICE: 03/26/[address]ES: 1. Acute ST segment elevation anterior myocardial infarction. 2. Coronary artery disease. 3. Previous multivessel PTCA stent 4. Recent lung biopsy. HISTORY OF PRESENT ILLNESS: Mrs. Orlando had a lung biopsy today. She was Lovenox bridged. When she returned to the room, she began having chest pain and back pain and ventricular tachycardia. EKG is compatible with an acute anterior myocardial infarction. At this time, we will take her for cardiac catheterization and emergent opening of the vessel. 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
[~2019-03-12 02:00] MED LIST changes: +BAYER CHEWABLE81 MG PO
--- NOTE | 2019-03-12 02:29 | NUR ---
ASSISTED PT TO RESTROOM.
[2019-03-12] MEDS ORDERED: RANITIDINE HCL150 M1 PO (03:14)
--- NOTE | 2019-03-12 03:45 | NUR ---
RECIEVED TO ROOM 2122 FROM ER VIA . PT A&O. RESPERATIONS EVEN ON RA. IV TO BREAST SL AND LEFT WRIST SL. IV SITES CLEAN AND DRY. PLACED ON TELEMETRY, 84 SR PER MT. VITALS STABLE. HISTORY AND MED REC OBTAINED. PT CURRENTLY DENIES PAIN OR NEEDS, BED LOW, CL IN REACH.
[2019-03-12 04:23] VITALS: BP 145/78; BMI 23.0
[2019-03-12 04:34] VITALS: BP 145/78
[2019-03-12 04:40] LABS: BASOPHILS 0 % (0-2); EOSINOPHILS 0 % (0-7); HEMATOCRIT 36.7 % (36.0-48.0); HEMOGLOBIN 12.3 g/dL (12-16); IMMATURE GRANULOCYTES 0.4 % (0-5); LYMPHOCYTES 10.1 % (15-50); MCHC 33.5 g/dL (31.0-37.0); MEAN PLATELET VOLUME 9.7 fL (7.4-10.4); MONOCYTES 1.7 % (2-11); NEUTROPHILS 87.8 % (40-80); RBC 3.84 10x6/uL (4.00-5.40); RDW 12.7 % (11.5-14.5)
[2019-03-12 04:55] LABS: MCV 95.6 fL (80.0-100.0); PLATELET COUNT 186 10x3/uL (130-400); WBC 5.3 10x3/uL (4.8-10.8)
[2019-03-12 05:31] LABS: ALBUMIN 3.4 g/dL (3.4-5.0); ANION GAP 14.9 mmol/L (8-16); BILIRUBIN - TOTAL 0.47 mg/dL (0.2-1.3); CALCIUM 8.6 mg/dL (8.5-10.1); CARBON DIOXIDE 25.4 mmol/L (21.0-32.0); CREATININE - SERUM 0.9 mg/dL (0.6-1.3); POTASSIUM - SERUM 3.3 mmol/L (3.5-5.1); PROTEIN - SERUM 7.3 g/dL (6.4-8.2)
[2019-03-12 05:34] LABS: TROPONIN-I 0.262 ng/mL (0.000-0.060)
--- NOTE | 2019-03-12 05:43 | NUR ---
RESTING WITH EYES CLOSED, RESPERATIONS EVEN, NO S/S DISTRESS NOTED.
--- NOTE | 2019-03-12 07:38 | NUR ---
AM ROUNDS PIPE BENDER AT BEDSIDE GETTING VITAL SIGNS. PT A/O X4, RESP EVEN AND NONLABORED ON 2L NS. MONITOR SHOWING SR WITH RATE OF 77. PT DENIES ANY NEEDS AT THIS TIME. CALL LIGHT IN REACH, BEDSIDE RAILS X2, NAD NOTED, WILL CONTINUE PLAN OF CARE.
[2019-03-12 08:39] VITALS: BP 127/74
--- NOTE | 2019-03-12 11:20 | CN ---
PATIENT NAME:CORTNEY ORLANDO MEDICAL RECORD: [id number] : 38 LOCATION:D. D.2123 ADMIT DATE: 03/12/19 ACCOUNT: [id number] CONSULTING PHYSICIAN: HYACINTH MANCILLA MD REFERRING PHYSICIAN: ROGER PEREZ MD DATE OF CONSULTATION: 03/12/2019 ADMITTING DIAGNOSES: 1. Congestive heart failure, chronic systolic dysfunction. 2. Cardiomyopathy, ischemic. 3. Coronary artery disease. 4. Previous multivessel percutaneous transluminal coronary angioplasty stent; recent percutaneous transluminal coronary angioplasty stent left anterior descending. 5. Hypertension. 6. Hyperlipidemia. 7. Chronic obstructive pulmonary disease. 8. Smoking history. HISTORY OF PRESENT ILLNESS: Mrs. Orlando presents to [facility] with increasing shortness of breath, congestive heart failure symptomatology. She has a known cardiomyopathy, ejection fraction of 30%. She recently underwent PTCA stent of the LAD. Her troponin is still mildly elevated. She has no acute changes on her EKG. She had no further episodes of chest pain or chest discomfort after the intervention, only the shortness of breath. Her ejection fraction is in the 30% range. PHYSICAL EXAMINATION: GENERAL APPEARANCE: Well-nourished, well-developed, appears stated age. Level of distress, comfortable. PSYCHIATRIC: Mental status, alert, normal affect. Orientation, oriented to time, place and person. EYES: Lids and conjunctiva, noninjected. No discharge, no pallor. ENT: Lips, teeth, gums, normal dentition. Oropharynx, no cyanosis, no pallor. NECK: Carotid arteries, bilateral normal upstroke, no bruits, no thrills. JUGULAR VEINS: No jugular venous pressure or distention. CERVICAL LYMPH NODES: Nontender, nonenlarged. THYROID: Not enlarged. Nontender. No nodules. LUNGS: Respiratory effort, unlabored. CHEST: Normal curvature. No thoracic deformity. No chest wall tenderness. Percussion, resonant. Auscultation, clear. No wheezes, no rales, no rhonchi. CARDIOVASCULAR: Precordial exam, nondisplaced. No heaves or pericardial thrills. Rate and rhythm, regular. Heart sounds, normal S1, normal S2. No S3, no gallop, no rub. Systolic murmur, not heard. Diastolic murmur, not heard. EXTREMITIES: No cyanosis, no edema. Peripheral pulses, full and equal in all extremities, except as noted. No bruits appreciated. ABDOMEN: Soft, nondistended. Normal aorta. No bruit. Nontender. No masses. Liver, nontender, no hepatomegaly. Spleen, nontender, no splenomegaly. MUSCULOSKELETAL: No joint tenderness. No joint swelling. No erythema. NEUROLOGICAL: Normal gait, normal strength, normal tone. SKIN: Warm and dry. OVERALL IMPRESSION: Shortness of breath, pulmonary edema, and this is congestive heart failure from chronic systolic dysfunction. We will start dobutamine, IV Lasix. Continue her Coreg, valsartan, aspirin and Plavix. No CONSULT REPORT [id number] SHU,CORTNEY DAWSON other cardiac workup or treatment is necessary. Clearing of the pulmonary edema with the dobutamine and Lasix is all that is needed at this time. TRANSINT:[id number] Voice Confirmation ID: [id number] DOCUMENT ID: [id number] HYACINTH MANCILLA MD at 1120 CC: [id number] DICTATION DATE: 03/12/19 0857 ADVENTURE CHALLENGE INSTRUCTOR: 03/12/19 1101 ADM IN [facility] [address] [place] [address]
[2019-03-12 11:40] VITALS: BP 128/61
[2019-03-12 12:19] VITALS: BMI 22.1
--- NOTE | 2019-03-12 15:55 | NUR ---
IV TO LEFT FOREARM INFILTRATED, DISCONTINUED IV. MEDS CONTINUED IN IV LOCATED IN LEFT BREAST. DENIES OTHER NEEDS AT THIS TIME. WILL CONTINUE TO MONITOR.
[2019-03-12 16:00] VITALS: Ht 162.6 cm; Wt 60.0 kg
[2019-03-12 18:36] VITALS: BP 116/65
[2019-03-12 19:01] LABS: APPEARANCE CLEAR (CLEAR); BILIRUBIN NEGATIVE (NEGATIVE); COLOR YELLOW (YELLOW); GLUCOSE NEGATIVE (NEGATIVE); KETONE NEGATIVE (NEGATIVE); NITRITE NEGATIVE (NEGATIVE); PROTEIN NEGATIVE (NEGATIVE); UROBILINOGEN NORMAL (NORMAL)
--- NOTE | 2019-03-12 19:21 | NUR ---
PT SITTING UP IN BED, BEDSIDE REPORT RECEIVED. PT HAS DOBUTAMINE INFUSING ORDERED AT 8.8, FAMILY AT BEDSIDE. PT ASKING FOR A SHOWER. WILL ASSIST PT NEEDED. NAME AND DATE PLACED ON BOARD. BEDLOW AND CALL LIGHT IN REACH. WILL CPOC
--- NOTE | 2019-03-12 19:46 | NUR ---
ASSISTING PT TO SHOWER. LEFT GROIN HEMATOMA AND BRUISING NOTED. LEAVING DRSG ON AT THIS TIME
--- NOTE | 2019-03-12 22:32 | NUR ---
VERBALZED UNDERSTANDING IN MEDICATIONS. PT DENIES ANY OTHER NEEDS. SNACK GIVEN WITH NIGHT MEDS. PT HAS DOBUTAMINE INFUSING ORDERED. PT ASSISTED WITH GETTING READY FOR SLEEP, DENIES ANY NEEDS. WILL CPOC
[2019-03-13 04:00] VITALS: BP 128/76
--- NOTE | 2019-03-13 05:27 | NUR ---
PT HAS BEEN NPO SINCE BEFORE MIDNIGHT, NO ORDER AT THIS TIME FOR WHEN PROCEDURE IS. PT WAS TOLD TODAY, NPO JUST INCASE IT IS TODAY. PT HAS NO S/S OF DISTRESS. WILL CPOC
--- NOTE | 2019-03-13 05:30 | NUR ---
DOBUTAMINE UPDATED WITH WEIGHT FROM THIS MORNING. DOBUTAMINE STILL INFUSING AT 8.8ML/HR UPDATED WHITE BOARD WITH DATE AND POC
[2019-03-13 05:37] LABS: ANION GAP 7.8 mmol/L (8-16); CALCIUM 8.5 mg/dL (8.5-10.1); POTASSIUM - SERUM 3.7 mmol/L (3.5-5.1)
[2019-03-13 05:39] LABS: CARBON DIOXIDE 31.9 mmol/L (21.0-32.0); CREATININE - SERUM 1.3 mg/dL (0.6-1.3)
[2019-03-13 05:41] LABS: BASOPHILS 0.1 % (0-2); EOSINOPHILS 1.3 % (0-7); HEMATOCRIT 34.9 % (36.0-48.0); HEMOGLOBIN 11.6 g/dL (12-16); IMMATURE GRANULOCYTES 0.4 % (0-5); LYMPHOCYTES 30.1 % (15-50); MCHC 33.2 g/dL (31.0-37.0); MCV 96.1 fL (80.0-100.0); MEAN PLATELET VOLUME 9.7 fL (7.4-10.4); NEUTROPHILS 59.1 % (40-80); PLATELET COUNT 209 10x3/uL (130-400); RBC 3.63 10x6/uL (4.00-5.40)
[2019-03-13 05:52] LABS: WBC 7.6 10x3/uL (4.8-10.8)
[2019-03-13 08:10] VITALS: BP 126/64
--- NOTE | 2019-03-13 08:25 | NUR ---
ALERT AND ORIENTED.TELEMERTY SHOWSSR 89. IV TO LEFT BREAST WITH DOBUTAINE AT 8.5. DRSG TO LEFT GROIN REMOVED. BRUISEING NOTED. NO BLEEDING OR SWELLING, NPO FOR POSSIBLE LUNG BX. DENIES ANY NEEDS. WILL MONITOR
[2019-03-13 11:37] VITALS: BP 131/65
[2019-03-13 14:38] VITALS: BP 124/68
--- NOTE | 2019-03-13 15:04 | NUR ---
I have reviewed this patient and I concur with the Shift Assessment completed by the Licensed Practical Nurse today this shift.
--- NOTE | 2019-03-13 15:25 | NUR ---
zofran 4 mg given iv for complaint of nausea
--- NOTE | 2019-03-13 16:28 | NUR ---
NO FURTHER COMPLAINT OF NAUSEA. WILL MONITOR.
--- NOTE | 2019-03-13 16:32 | NUR ---
LYING QUIETLY. DENIES ANY NEEDS. AWAITING DOCTOR TO TALK WITH HER. TELEMERTY SHOWS SR
--- NOTE | 2019-03-13 19:20 | NUR ---
PT ASLEEP. AROUSES TO VERBAL STIMULI. PT IS AAO, DENIES ANY NEEDS. NO S/S OF DISTRESS. DOBUTAMINE INFUSING ORDERED, PT WILL CALL FOR ASSIST WHEN NEEDED. NAME AND DATE PLACED ON BOARD. WILL CPOC
[2019-03-13 20:00] VITALS: BP 102/56
--- NOTE | 2019-03-13 23:49 | NUR ---
SPOKE WITH PT ABOUT POC AND
[2019-03-14] VITALS: BP 116/42
--- NOTE | 2019-03-14 03:42 | NUR ---
PT ASLEEP. RESP EVEN AND UNLABORED. NO S/S OF DISTRESS. BED LOW AND CALL LIGHT IN REACH. SPOKE WITH TECH REGARDING NEED FOR ACCURATE WEIGHT. WILL CPOC
[2019-03-14 04:00] VITALS: BP 118/61
--- NOTE | 2019-03-14 06:45 | NUR ---
PT LAYING ON LEFT SIDE. STATES SHE FEELS VERY TIRED. MORNING MEDS AND FRESH WATER GIVEN .PT DENIES ANY OTHER NEEDS. ACCURATE WEIGHT OF 58 KG PUT INTO DOBUTAMINE. DOBUTAMINE INFUSING AT 8.7 NO S/S OF DISTRESS. WILL CPOC
[2019-03-14 06:52] LABS: BASOPHILS 0.1 % (0-2); EOSINOPHILS 1.8 % (0-7); HEMATOCRIT 36.9 % (36.0-48.0); HEMOGLOBIN 12.1 g/dL (12-16); IMMATURE GRANULOCYTES 0.1 % (0-5); MCH 31.8 pg (26.0-34.0); MCHC 32.8 g/dL (31.0-37.0); MCV 96.9 fL (80.0-100.0); MEAN PLATELET VOLUME 9.6 fL (7.4-10.4); MONOCYTES 11.3 % (2-11); NEUTROPHILS 62.7 % (40-80); PLATELET COUNT 201 10x3/uL (130-400); RBC 3.81 10x6/uL (4.00-5.40); RDW 13.2 % (11.5-14.5); WBC 7.2 10x3/uL (4.8-10.8)
[2019-03-14 07:12] LABS: ANION GAP 13.5 mmol/L (8-16); CALCIUM 8.7 mg/dL (8.5-10.1); CREATININE - SERUM 1.4 mg/dL (0.6-1.3); POTASSIUM - SERUM 3.5 mmol/L (3.5-5.1)
[2019-03-14 08:18] VITALS: BP 138/72
--- NOTE | 2019-03-14 08:19 | NUR ---
ALERT AND ORIENTED. TELEMERTY SHOW SR 82. LEFT BREASTIV WITH DOBUTAMINE AT 8.7. LEFT GROIN CATH SITE SOFT WITH NO SWELLING OR BLEEDING. PPP, DENIES ANY NEEDS. WILL MONITOR
--- NOTE | 2019-03-14 08:59 | NUR ---
MORNING MEDICATION GIVEN AT THIS TIME, TOLERATED WELL, NO TROUBLE SWALLOWING. WASTED 5MG (HALF TABLET) OF CYCLOBENZAPINE HCL IN SHARPS CONTAINER. WASTED 150MG (HALF TAB) OF OXCARBAZEPINE IN SHARPS CONTAINER. DENIES OTHER NEEDS AT THIS TIME. WILL CONTINUE TO MONITOR.
--- NOTE | 2019-03-14 09:36 | NUR ---
LEFT CHEST IV SWOLLEN AND RED. PT STATED "IT'S PAINFUL". LEFT CHEST IV DISCONTIUED, PT TOLERATED PROCEDURE WELL. ATTEMPTED TO START NEW IV. DENIES OTHER NEEDS AT THIS TIME. WILL CONTINUE TO MONITOR. .
--- NOTE | 2019-03-14 11:31 | NUR ---
I have reviewed this patient and I concur with the Shift Assessment completed by the Licensed Practical Nurse today this shift.
[2019-03-14 11:51] VITALS: BP 126/66
--- NOTE | 2019-03-14 13:44 | NUR ---
Nutrition Follow Up: Chart reviewed Diet: AHA PO Intake: 77% meal avg BM: 03/14/19 Wt stable Labs reviewed Meds noted including Lasix Rec continue current diet. RD following.
--- NOTE | 2019-03-14 15:15 | NUR ---
PT RECIEVED 5MG (HALF TABLET) OF CYCLOBENZAPRINE HCL. THE OTHER 5MG (HALF TABLET) WASTED IN SHARPS CONTAINER.
[2019-03-14 15:22] VITALS: BP 123/74
--- NOTE | 2019-03-14 16:51 | MORECARE ---
CASE MANAGEMENT DISCHARGE SUMMARY PATIENT: CORTNEY IRELAND UNIT: [id number] ADM DATE: 03/12/19 AGE: 79 : 38 SEX: F ROOM/BED: D.6233 AUTHOR: ALLIE CEJA PHYSICIAN: REFERRING PHYSICIAN: ROGER PEREZ MD DATE OF SERVICE: 03/14/19 Discharge Plan Patient Name: [facility]NEY [facility]AND [facility] [facility] 1940 Planned Disposition: Home with Home Health Anticipated Discharge Date: Discharge Date: Expected LOS: Initial Reviewer: [email or web address] Initial Review Date: 03/14/2019 Generated: 03/14/19 5:50 pm Patient Name: CORTNEY IRELAND Page [id number] at 1651 All edits/amendments must be made on the electronic document DICTATION DATE: 03/14/191649 ORE PUNCHER: CARMINE 03/14/191649 RPT#: [id number] OK DATE: STATUS: ADM IN [facility] [address] [place] [address] END OF REPORT
--- NOTE | 2019-03-14 16:58 | MORECARE ---
CASE MANAGEMENT DISCHARGE SUMMARY PATIENT: CORTNEY IRELAND UNIT: [id number] ADM DATE: 03/12/19 AGE: 79 : 38 SEX: F ROOM/BED: D.4834 AUTHOR: MARCIAL,DOC PHYSICIAN: REFERRING PHYSICIAN: ROGER PEREZ MD DATE OF SERVICE: 03/14/19 Discharge Plan Patient Name: CORTNEY IRELAND Facility: [facility]:[place] : 1940 Planned Disposition: Home with Home Health Anticipated Discharge Date: Discharge Date: Expected LOS: Initial Reviewer: [id number] Initial Review Date: 03/14/2019 Generated: 03/14/19 5:57 pm Comments DCP- Discharge Planning Updated by [id number]: Prabhjot Piedra on 03/14/19 3:[address] Patient Name: CORTNEY IRELAND Admission Status: ER Accout number: [id number] Admission Date: 03-12-2019 : 1940 Admission Diagnosis:MALIGNANT PLEURAL EFFUSION Attending: ROGER PEREZ Current LOS: 2 Anticipated DC Date: Planned Disposition: Home with Home Health Primary Insurance: [facility] MEDICARE SOLUTIONS PLANNED EXTERNAL PROVIDER: [employer] [place] [facility] Discharge Planning Comments: CM MET WITH PT IN ROOM TO DISCUSS DISCHARGE PLANNING AND NEEDS. PT REPORTS LIVING AT HOME DEPENDENTLY FOR BATHING WITH SON AND SON'S . PT HAS BEDSIDE COMMODE, CANE AND WALKER WITH NO MEDICAL EQUIPMENT PROVIDER PREFERENCE. PT HAS NO OUTSIDE SERVICES ASSISTING IN THE HOME. CM DISCUSSED AVAILABILITY OF HOME HEALTH, REHAB SERVICES AND MEDICAL EQUIPMENT. PT WANTS HOME HEALTH WITH [facility] IN [place] SHE HAS FAMILY WORKING FOR THEM. CHOICE SIGNED. PT REPORTS HER SON WILL PICK HER UP FOR DISCHARGE HOME. IMPORTANT MESSAGE FROM MEDICARE PROVIDED AND EXPLAINED. CM TO ARRANGE HOME HEALTH WITH [facility] IN [place] WITH PHYSICIAN AGREEMENT AND ORDERS. Professional Development Manager: Prabhjot Piedra DCPIA - Discharge Planning Initial Assessment Updated by [id number]: Prabhjot Piedra on 03/14/19 4:51 pm * Is the patient Alert and Oriented? Yes * How many steps to enter\exit or inside your home? 0-O / 4-I * PCP KWESI LOPEZ AT [facility] * Pharmacy [facility] [place] * Preadmission Environment Home with Family * ADLs Partial Dependent * Partial ADLs (Assistance needed) Bathing * Equipment Bedside Commode Cane Walker * Other Equipment NO MEDICAL EQUIPMENT PROVIDER PREFERNECE * List name and contact numbers for known caregivers / representatives who currently or will assist patient after discharge: LUKAS IRELAND, SPOUSE, * Verbal permission to speak to the caregivers and representatives has been obtained from the patient. N/A * Community resources currently utilized None * Please name any agencies selected above. NONE * Additional services required to return to the preadmission environment? No * Can the patient safely return to the preadmission environment? Yes * Has this patient been hospitalized within the prior 30 days at any hospital? Yes Coverage Notice Reviewer: [id number] Piedra Notice Issued Date-Time: 03/14/2019 9:40 Notice Type: IM Discharge Notice Notice Delivered To: Patient Relationship to Patient: Rn Heart Name: Delivery Method: HAND - Hand Delivered Kennedi Days: Prior Verbal Notification: Recipient Understood Notice: Yes Recipient Signature: Yes Med Rec Note Co-signed by Attending: Coverage Notice Comment: Reviewer: MIGUEL Piedra Notice Issued Date-Time: 03/14/2019 9:40 Notice Type: Patient Choice Letter Notice Delivered To: Patient Relationship to Patient: Rn Heart Name: Delivery Method: HAND - Hand Delivered Kennedi Days: Prior Verbal Notification: Recipient Understood Notice: Yes Recipient Signature: Yes Med Rec Note Co-signed by Attending: Coverage Notice Comment: [facility] [employer] DP export: 03/14/19 3:51 p Patient Name: CORTNEY IRELAND Page [phone] at 1658 All edits/amendments must be made on the electronic document DICTATION DATE: 03/14/191656 JUDO INSTRUCTOR: CARMINE 03/14/191656 RPT#: [id number] DC DATE: STATUS: ADM IN [facility] [address] [place] [address] END OF REPORT
[2019-03-14 18:51] LABS: PLT FUNCT.(P2Y12) PLAVIX 6 PRU (194-418)
--- NOTE | 2019-03-14 19:15 | NUR ---
RECEIVED REPORT, WILL ASSUME CARE OF PT, NEW ORDER FOR NS BOLUS, BECAUSE BP WAS LOW, BED IS LOW, SRX2, CALL LIGHT IN REACH, WILL CONTINUE PLAN OF CARE
[2019-03-14 20:00] VITALS: BP 99/48
--- NOTE | 2019-03-14 21:00 | NUR ---
PT SAYS SHE IS FEELING BETTER, CALL LIGHT IN REACH, WILL CONTINUE PLAN OF CARE
[2019-03-15] VITALS: BP 155/53
--- NOTE | 2019-03-15 01:13 | NUR ---
SLEEPING, NO DISTRESS NOTICED AT THIS TIME, BED IS LOW, SRX2, CALL LIGHT IN REACH
--- NOTE | 2019-03-15 02:18 | NUR ---
I have reviewed this patient and I concur with the Shift Assessment completed by the Licensed Practical Nurse today this shift.
[2019-03-15 04:00] VITALS: BP 98/50
[2019-03-15 05:03] LABS: BASOPHILS 0.2 % (0-2); EOSINOPHILS 2.5 % (0-7); HEMATOCRIT 37.6 % (36.0-48.0); HEMOGLOBIN 12.3 g/dL (12-16); IMMATURE GRANULOCYTES 0.5 % (0-5); LYMPHOCYTES 27.7 % (15-50); MCH 31.9 pg (26.0-34.0); MCHC 32.7 g/dL (31.0-37.0); MCV 97.7 fL (80.0-100.0); NEUTROPHILS 59.1 % (40-80); PLATELET COUNT 182 10x3/uL (130-400); RBC 3.85 10x6/uL (4.00-5.40); RDW 13.1 % (11.5-14.5); WBC 6.3 10x3/uL (4.8-10.8)
[2019-03-15 05:17] LABS: ANION GAP 11.4 mmol/L (8-16); CALCIUM 8.4 mg/dL (8.5-10.1); CARBON DIOXIDE 27.2 mmol/L (21.0-32.0); CREATININE - SERUM 1.3 mg/dL (0.6-1.3); POTASSIUM - SERUM 4.6 mmol/L (3.5-5.1)
--- NOTE | 2019-03-15 07:25 | NUR ---
ASSESSMENT DONE. DENIES NEEDS.
[2019-03-15 09:12] VITALS: BP 139/79
--- NOTE | 2019-03-15 11:34 | NUR ---
ORTHOSTATIC VS. LYING 99/50 PULSE 92, SITTING 98/59 PULSE 96, STANDING 98/59 PULSE 102.
[2019-03-15 11:37] VITALS: BP 140/41
--- NOTE | 2019-03-15 12:15 | NUR ---
I have reviewed this patient and I concur with the Shift Assessment completed by the Licensed Practical Nurse today this shift.
--- NOTE | 2019-03-15 16:22 | NUR ---
ORTHO B/P STANDING 112/63, SITTING 115/65. LYING 118/69
[2019-03-15 16:44] VITALS: BP 118/69
--- NOTE | 2019-03-15 19:26 | NUR ---
RECEIVED REPORT, WILL ASSUME CARE OF PT, SLEEPING, NO DISTRESS NOTICED AT THIS TIME, BED IS LOW, SRX2, CALL LIGHT IN REACH, WILL CONTINUE PLAN OF CARE
[2019-03-15 20:00] VITALS: BP 103/59; BP 108/63; BP 99/62
--- NOTE | 2019-03-15 20:00 | NUR ---
ORTHO BP-LYING 108/72-KRJJTKV-149/99-WJDKATFE-42/62
--- NOTE | 2019-03-15 23:11 | NUR ---
ORTHO BP LYING-114/68 SITTING-113/61 STANDING-109/63
[2019-03-16] VITALS (8 sets, daily range): BP systolic 94–122; BP diastolic 50–73
[2019-03-16 05:55] LABS: BASOPHILS 0.2 % (0-2); EOSINOPHILS 2.2 % (0-7); HEMATOCRIT 34.4 % (36.0-48.0); HEMOGLOBIN 11.2 g/dL (12-16); IMMATURE GRANULOCYTES 0.4 % (0-5); LYMPHOCYTES 33.4 % (15-50); MCHC 32.6 g/dL (31.0-37.0); MCV 98.3 fL (80.0-100.0); MEAN PLATELET VOLUME 9.8 fL (7.4-10.4); MONOCYTES 9.4 % (2-11); NEUTROPHILS 54.4 % (40-80); PLATELET COUNT 176 10x3/uL (130-400); RDW 13.1 % (11.5-14.5); WBC 5.5 10x3/uL (4.8-10.8)
[2019-03-16 06:08] LABS: CALCIUM 8.5 mg/dL (8.5-10.1); CARBON DIOXIDE 22.8 mmol/L (21.0-32.0); CREATININE - SERUM 1.1 mg/dL (0.6-1.3); POTASSIUM - SERUM 4.8 mmol/L (3.5-5.1)
--- NOTE | 2019-03-16 07:22 | NUR ---
ASSESSMENT DONE. DENIES NEEDS. ORTHOSTATIC B/P LYING 104/58 SITTING 113/68 STANDING 112/70
--- NOTE | 2019-03-16 10:53 | NUR ---
I have reviewed this patient and I concur with the Shift Assessment completed by the Licensed Practical Nurse today this shift.
--- NOTE | 2019-03-16 11:53 | NUR ---
ORTHOSTATIC B/P SITTING 103/64 STANDING 98/59 LYING 94/50
--- NOTE | 2019-03-16 17:39 | NUR ---
WITHOUT CHANGES OR DISTRESS NOTED AT THIS TIME. DENIES NEEDS
--- NOTE | 2019-03-16 19:53 | NUR ---
RECEIVED REPORT, WILL ASSUME CARE OF PT, DENIES ANY NEEDS AT THIS TIME, EXPLAINED WILL BE NPO AFTER MIDNIGHT, BED IS LOW, SRX2, CALL LIGHT IN REACH, WILL CONTINUE PLAN OF CARE
--- NOTE | 2019-03-16 20:00 | NUR ---
ORTHO BP 124/53 LYING 129/75 SITTING 129/75 STANDING
[2019-03-17] VITALS (14 sets, daily range): BP systolic 102–128; BP diastolic 55–83
--- NOTE | 2019-03-17 03:28 | NUR ---
I have reviewed this patient and I concur with the Shift Assessment completed by the Licensed Practical Nurse today this shift.
[2019-03-17 05:33] LABS: BASOPHILS 0.2 % (0-2); HEMATOCRIT 34.1 % (36.0-48.0); HEMOGLOBIN 10.9 g/dL (12-16); IMMATURE GRANULOCYTES 0.6 % (0-5); LYMPHOCYTES 32.7 % (15-50); MCH 31.4 pg (26.0-34.0); MCV 98.3 fL (80.0-100.0); MEAN PLATELET VOLUME 9.6 fL (7.4-10.4); MONOCYTES 9.3 % (2-11); NEUTROPHILS 54.2 % (40-80); PLATELET COUNT 169 10x3/uL (130-400); RBC 3.47 10x6/uL (4.00-5.40); RDW 12.9 % (11.5-14.5); WBC 5.1 10x3/uL (4.8-10.8)
[2019-03-17 05:36] LABS: ANION GAP 11.3 mmol/L (8-16); CALCIUM 8.2 mg/dL (8.5-10.1); CARBON DIOXIDE 25.5 mmol/L (21.0-32.0); POTASSIUM - SERUM 4.8 mmol/L (3.5-5.1)
--- NOTE | 2019-03-17 08:24 | NUR ---
ALERT AND ORIENTED. TELEMERTY SHOWS SR. DENIES ANY NEEDS. O2 AT 2 L/M PER NC RIGHT FA SL. NPO FOR SURGERY TODAY. WILL MONITOR.
[2019-03-17 08:32] LABS: APTT 37.4 SECONDS (22.8-39.4); INR 1.08 (0.85-1.17); PROTIME 13.5 SECONDS (11.6-15.0)
--- NOTE | 2019-03-17 09:15 | NUR ---
BACK FROM IR. 450 CC FLUID REMOVED FROM LUNG. SMALL DRSG TOLEFT BACK. NO BLEEDING. V/S STABLE AND TELEMERTY SHOWS SR
[2019-03-17 15:28] LABS: PROTEIN - BODY FLUID 2.5 G/DL
--- NOTE | 2019-03-17 15:54 | NUR ---
I have reviewed this patient and I concur with the Shift Assessment completed by the Licensed Practical Nurse today this shift.
[2019-03-17 17:07] LABS: MACROPHAGES BF 28 %; MESOTHELIALS BF 6 %; NEUT - BF 10 %
--- NOTE | 2019-03-17 19:15 | NUR ---
GONE TO SURGERY BY BED.
--- NOTE | 2019-03-17 22:04 | NUR ---
EVENING MEDICATIONS GIVEN AT THIS TIME. NO PROBLEMS SWALLOWING. PT REQUESTED SPRITE, GIVEN IMMEDIATELY. 5MG (HALF TABLET) CYCLOBENZAPRINE HCL WASTED IN SHARPS.150MG (HALF TABLET) OXCARBAZEPINE WASTED IN SHARPS. DENIES OTHER NEEDS AT THIS TIME. WILL CONTINUE TO MONITOR.
--- NOTE | 2019-03-17 23:24 | NUR ---
ASSISTED PT TO BATHROOM AND BACK TO BED. GOT PT JELLO REQUESTED. DENIES OTHER NEEDS AT THIS TIME. WILL CONTINUE TO MONITOR.
[2019-03-18] VITALS (9 sets, daily range): BP systolic 84–126; BP diastolic 48–77
--- NOTE | 2019-03-18 00:05 | NUR ---
ASSISTED PT TO BATHROOM AND BACK TO BED. DENIES OTHER NEEDS AT THIS TIME. WILL CONTINUE TO MONITOR.
--- NOTE | 2019-03-18 00:34 | NUR ---
I have reviewed this patient and I concur with the Shift Assessment completed by the Licensed Practical Nurse today this shift.
--- NOTE | 2019-03-18 00:35 | NUR ---
I have reviewed this patient and I concur with the Shift Assessment completed by the Licensed Practical Nurse today this shift.
--- NOTE | 2019-03-18 01:40 | NUR ---
ASSISTED PT TO BATHROOM AND BACK TO BED. COMPLAINTS OF DIZZINESS. DENIES OTHER NEEDS AT THIS TIME. WILL CONTINUE TO MONITOR.
--- NOTE | 2019-03-18 02:54 | NUR ---
ASSISTED PT IN USING BED HERNANDEZ, PER PATIENT REQUEST. DENIES OTHER NEEDS AT THIS TIME. WILL CONTINUE TO MONITOR.
--- NOTE | 2019-03-18 04:44 | NUR ---
PT RESTING IN BED WITH EYES CLOSED, BREATHING NONLABORED. CALL LIGHT WITHIN REACH, WILL CONTINUE TO MONITOR.
--- NOTE | 2019-03-18 05:07 | NUR ---
ASSISTED PT OFF OF BED HERNANDEZ, READJUSTED IN BED. DENIES OTHER NEEDS AT THIS TIME. CALL LIGHT WITHIN REACH. WILL CONTINUE TO MONITOR.
--- NOTE | 2019-03-18 06:02 | NUR ---
MORNING MEDICATION GIVEN AT THIS TIME, NO PROBLEMS SWALLOWING. ASSISTED PT ON AND OFF OF BED HERNANDEZ, READJUSTED IN BED. DENIES OTHER NEEDS AT THIS TIME. CALL LIGHT WITHIN REACH. WILL CONTINUE TO MONITOR.
--- NOTE | 2019-03-18 07:55 | NUR ---
SLEEPING BUT EASILY AROUSED.TELEMERTY SHOWS SR 90. RIGHT FA SL. LEFT CHEST WALL IP SL.0 2 AT 2 L/M PER NC. SR UP WITH CALL LIGHT IN REACH. NO NEEDS VOICED
--- NOTE | 2019-03-18 12:15 | OP ---
PATIENT NAME: CORTNEY IRELAND MEDICAL RECORD: [id number] :[birth year] LOCATION:D.M2 D.2123 ADMISSION DATE:03/12/19 SURGEON: KAMRAN BETANCUR MD DATE OF OPERATION: 03/17/2019 PREOPERATIVE DIAGNOSES: 1. Lung mass, likely a malignancy. 2. Lack of adequate peripheral IV access. POSTOPERATIVE DIAGNOSES: 1. Lung mass, likely a malignancy. 2. Lack of adequate peripheral IV access. PROCEDURE: 1. Placement of left infraclavicular PowerPort under fluoroscopic guidance. 2. Immediate surgeon interpretation of the fluoroscopic images. SURGEON: Kamran Betancur MD HISTOPATHOLOGY TECHNICIAN: None. BLOOD LOSS: Minimal. ANESTHESIA: General. COMPLICATIONS: None. The risks, possible complications and alternatives to the procedure were explained to the patient. She elects to proceed. Discussion specifically included but was not limited to bleeding requiring emergency reoperation, infection, port could flip, could break. No radiologist was present for this procedure. Static fluoroscopic images were obtained and are kept in the PACS system. The surgeon interpretation of the radiographic images is dictated within the body of this operative note. OPERATIVE COURSE: The patient was conveyed to the operating room electively on 03/17/2019. General anesthesia was induced by the anesthesia staff. The left neck and left upper chest was sterilely prepped and draped. Under ultrasonographic guidance, I identified no compressible left internal jugular vein. I was able to look underneath the clavicle and I could see a compressible subclavian vein. Utilizing a supraclavicular subclavian approach, I percutaneously accessed the subclavian vein in an antegrade fashion. A guidewire passed easily. This was visualized under fluoroscopy. A transverse incision was accomplished in the left anterior superior infraclavicular chest. Sharp dissection was carried down to the level of pectoralis fascia. A subcutaneous pocket was created in a caudad direction. I tunneled a PowerPort catheter from the chest incision to the neck incision. Over the guidewire, I dilated with a dilator sheath. The dilator wire removed. The catheter was then advanced down through the sheath, which was then removed. I pulled back on the catheter, so that its tip was at the cavoatrial junction. OPERATIVE REPORT [id number] CORTNEY IRELAND I shortened the PowerPort catheter. It was attached to the PowerPort. The locking device was firmly engaged. The PowerPort was then placed in subcutaneous tissue of the port pocket. It was sutured to a 3-point fixation to the underlying pectoralis muscle. I irrigated in both incisions. The neck incision was closed with multiple interrupted intracuticular 3-0 Vicryls. The chest incision was closed with multiple interrupted subcuticular 3-0 Vicryls and then a running intracuticular 3-0 Vicryl. The port accessed easily. It was flushed easily and aspirated dark, nonpulsatile blood. I then flushed with the appropriate amount of heparin flushed. I left the port accessed. A sterile dressing was applied. An image over the mediastinum revealed tip of the PowerPort catheter was at the cavoatrial junction. Another image over the left lung apex revealed no radiographic evidence of complication. There is no apparent kinking or twisting of the PowerPort catheter. TRANSINT:[id number] Voice Confirmation ID: [id number] DOCUMENT ID: [id number] KAMRAN BETANCUR MD at 1215 CC: [id number] DICTATION DATE: 03/17/192056 SPIRAL WINDER: 03/18/19 0341 ADM IN [facility] [address] [place] [address]
--- NOTE | 2019-03-18 19:25 | NUR ---
PT IN BED, ULTRASOUND IN THE ROOM. DENIES OTHER NEEDS AT THIS TIME. WILL CONTINUE TO MONITOR.
--- NOTE | 2019-03-18 21:24 | NUR ---
EVENING MEDICATION GIVEN AT THIS TIME. NO DIFFICULTY SWALLOWING. 150 MG ( HALF TABLET) OF OXCARBAZEPINE GIVEN, 150MG ( HALF TABLET) WASTED IN SHARPS. 5MG (HALF TABLET) CYCLOBENZAPRINE HCL GIVEN, 5 MG (HALF TABLET) WASTED IN SHARPS. PT AMBULATED TO BATHROOM AND BACK WITH NO DICFFICULTY. DENIES OTHER NEEDS AT THIS TIME. WILL CONTINUE TO MONITOR.
--- NOTE | 2019-03-18 23:26 | NUR ---
PT RESTING IN BED WITH EYES CLOSED. BREATHING UNLABORED. WILL CONTINUE TO MONITOR.
--- NOTE | 2019-03-19 01:05 | NUR ---
PT RESTING IN BED, EYES CLOSED BREATHING UNLABORED. WILL CONTINUE TO MONITOR.
[2019-03-19 04:00] VITALS: BP 118/62
--- NOTE | 2019-03-19 04:33 | NUR ---
I have reviewed this patient and I concur with the Shift Assessment completed by the Licensed Practical Nurse today this shift.
--- NOTE | 2019-03-19 04:35 | NUR ---
PT RESTING IN BED WITH EYES CLOSED, BREATHING UNLABORED. WILL CONTINUE TO MONITOR.
--- NOTE | 2019-03-19 05:55 | NUR ---
GAVE MORNING MEDICATION AT THIS TIME. PT AMBULATED TO BATHROOM WITH NO PROBLEMS. DENIES OTHER NEEDS AT THIS TIME. WILL CONTINUE TO MONITOR.
[2019-03-19 06:49] LABS: BASOPHILS 0.2 % (0-2); EOSINOPHILS 1.8 % (0-7); HEMATOCRIT 34.9 % (36.0-48.0); HEMOGLOBIN 11.5 g/dL (12-16); IMMATURE GRANULOCYTES 0.3 % (0-5); LYMPHOCYTES 24.5 % (15-50); MCH 31.9 pg (26.0-34.0); MCV 96.9 fL (80.0-100.0); MEAN PLATELET VOLUME 9.7 fL (7.4-10.4); MONOCYTES 11.2 % (2-11); PLATELET COUNT 175 10x3/uL (130-400); RDW 12.8 % (11.5-14.5); WBC 6.1 10x3/uL (4.8-10.8)
--- NOTE | 2019-03-19 07:22 | NUR ---
REPORT RECEIVED. WILL CONTINUE WITH POC. PT CURRENTLY LYING SEMI FOWLERS. CALL LIGHT W/I REACH. PT IS RESTING AT THE MOMENT. RR EVEN AND UNLABORED ON 2L 02. L.CHEST PORT SALINE LOCKED. NO S/S OF DISTRESS NOTED. PT DENIES ANY NEEDS AT THIS TIME. WILL CTM.
[2019-03-19 07:27] LABS: ALBUMIN 3.1 g/dL (3.4-5.0); BILIRUBIN - TOTAL 0.42 mg/dL (0.2-1.3); CALCIUM 8.5 mg/dL (8.5-10.1); CARBON DIOXIDE 27.4 mmol/L (21.0-32.0); CREATININE - SERUM 1.2 mg/dL (0.6-1.3); POTASSIUM - SERUM 4.4 mmol/L (3.5-5.1); PROTEIN - SERUM 6.6 g/dL (6.4-8.2)
[2019-03-19 09:47] VITALS: BP 124/75
--- NOTE | 2019-03-19 10:34 | NUR ---
AM MEDICATIONS ADMINISTERED. INFUSAPORT DRESSING CHANGED. MINIMAL BLOOD NOTED. NO DRAINAGE. HEALING PROPERLY. DHALIWAL NEEDLE IN PLACE. PT DENIES ANY NEEDS. WILL CTM.
--- NOTE | 2019-03-19 13:35 | NUR ---
I have reviewed this patient and I concur with the Shift Assessment completed by the Licensed Practical Nurse today this shift.
--- NOTE | 2019-03-19 14:13 | NUR ---
Nutrition follow-up: Diet: Regular PO intake ~50% of last 3 meals. PO intake has been ~75% of meals. Labs reviewed Wt: 127# -> 1# decrease +BM Will offer nutritional supplements. RDN following.
[2019-03-19 17:47] VITALS: BP 92/59
[2019-03-19 17:56] VITALS: BP 119/76
--- NOTE | 2019-03-19 19:30 | NUR ---
PT SUPINE IN BED RESTING, BREATHING UNLABORED. DENIES OTHER NEEDS AT THIS TIME. WILL CONTINUE TO MONITOR.
[2019-03-19 20:00] VITALS: BP 102/61
--- NOTE | 2019-03-19 21:27 | NUR ---
GAVE EVENING MEDICATIONS AT THIS TIME. NO PROBLEMS SWALLOWING. 150 MG (HALF TABLET) OF OXCARBAZEPINE GIVEN, 150 MG (HALF TABLET) WASTED IN SHARPS CONTAINER. 5 MG (HALF TABLET) CYCLOBENZAPRINE HCL GIVEN, 5MG (HALF TABLET) WASTED IN SHARPS CONTAINER. DENIES OTHER NEEDS AT THIS TIME. WILL CONTINUE TO MONITOR.
--- NOTE | 2019-03-19 23:18 | NUR ---
PT RESTING IN BED, EYES CLOSED, BREATHING EVEN AND UNLABORED. WILL CONTINUE TO MONITOR.
[2019-03-20 00:30] VITALS: BP 101/58
--- NOTE | 2019-03-20 01:08 | NUR ---
PT LATERAL IN BED, BREATHING EVEN AND UNLABORED. CALL LIGHT WITHIN REACH. WILL CONTINUE TO MONITOR.
--- NOTE | 2019-03-20 03:04 | NUR ---
PT RESTING SUPINE IN BED. CALL LIGHT WITHIN REACH. DENIES OTHER NEEDS AT THIS TIME. WILL CONTINUE TO MONITOR.
--- NOTE | 2019-03-20 04:29 | NUR ---
I have reviewed this patient and I concur with the Shift Assessment completed by the Licensed Practical Nurse today this shift.
[2019-03-20 04:30] VITALS: BP 100/52
--- NOTE | 2019-03-20 04:43 | NUR ---
PT TO BEDSIDE COMMODE AND BACK, AIDE IN THE ROOM ASSISTING. READJUSTED IN BED. CALL LIGHT WITHIN REACH, REMINDED TO USE IT. DENIES OTHER NEEDS AT THIS TIME. WILL CONTINUE TO MONITOR.
[2019-03-20 05:10] LABS: BASOPHILS 0.2 % (0-2); EOSINOPHILS 3.4 % (0-7); HEMATOCRIT 34.6 % (36.0-48.0); HEMOGLOBIN 11.4 g/dL (12-16); IMMATURE GRANULOCYTES 0.3 % (0-5); MCH 31.9 pg (26.0-34.0); MCHC 32.9 g/dL (31.0-37.0); MCV 96.9 fL (80.0-100.0); MEAN PLATELET VOLUME 9.7 fL (7.4-10.4); MONOCYTES 11.9 % (2-11); NEUTROPHILS 57.2 % (40-80); PLATELET COUNT 200 10x3/uL (130-400); RBC 3.57 10x6/uL (4.00-5.40)
[2019-03-20 05:47] LABS: ALBUMIN 2.9 g/dL (3.4-5.0); ANION GAP 11.9 mmol/L (8-16); BILIRUBIN - TOTAL 0.22 mg/dL (0.2-1.3); CALCIUM 8.6 mg/dL (8.5-10.1); CARBON DIOXIDE 27.3 mmol/L (21.0-32.0); CREATININE - SERUM 1.4 mg/dL (0.6-1.3); POTASSIUM - SERUM 4.2 mmol/L (3.5-5.1); PROTEIN - SERUM 6.4 g/dL (6.4-8.2); T4 THYROXIN - FREE 1.25 ng/dL (0.76-1.46); THYROID STIMULATING HORMONE 0.68 uIU/mL (0.36-3.74)
--- NOTE | 2019-03-20 06:09 | NUR ---
MORING MEDICATION GIVEN AT THIS TIME. NO PROBLEMS SWALLOWING. CALL LIGHT WITHIN REACH, DENIES OTHER NEEDS AT THIS TIME. WILL CONTINUE TO MONITOR.
--- NOTE | 2019-03-20 07:15 | NUR ---
ASSESSMENT DONE. DENIES NEEDS
[2019-03-20 07:31] VITALS: BP 109/61
--- NOTE | 2019-03-20 10:09 | NUR ---
I have reviewed this patient and I concur with the Shift Assessment completed by the Licensed Practical Nurse today this shift.
[2019-03-20 11:21] VITALS: BP 151/83
--- NOTE | 2019-03-20 11:45 | NUR ---
There must be 6 weeks inbetween a Nuclear Medicine Thryoid Uptake and Scan and CT with contrast. She had a CTA Chest PE Protocol on 03/02/19. The Thyroid Uptake and Scan will be cancelled. Please, re-order the exam when the appropriate time has passed.
--- NOTE | 2019-03-20 14:45 | NUR ---
OT NOTE: PT VERY LETHARGIC THIS AFTERNOON. STATES THAT SHE HAS FELT TIRED ALL DAY. PERFORMED FEEDING WITH SET UP AND CONSUMED APPROX 75%; REQUIRED MIN ASSIST TO KELLY SOCK ON R SIDE AND SET UP WITH LEFT; TOILETING WITH CGA; ABLE TO AMB INTO HALLWAY WITH MIN ASSIST X APPROX 30-40 FT. PT VERY FATIGUED UPON RETURN TO ROOM. O2 SATS AT 87 AFTER AMBULATION, BUT BACK UP TO 94 WITH A FEW DEEP BREATHS. INDEP WITH BED MOB; RADHA NOYOLA, OTR/L
[2019-03-20 15:24] VITALS: BP 90/45
--- NOTE | 2019-03-20 17:05 | NUR ---
WITHOUT CHANGES OR DISTRESS NOTED AT THIS TIME. DENIES NEEDS AT THIS TIME.
[2019-03-20 20:00] VITALS: BP 98/60
[2019-03-21 00:15] VITALS: BP 96/62
[2019-03-21 04:30] VITALS: BP 98/64
--- NOTE | 2019-03-21 04:43 | NUR ---
I have reviewed this patient and I concur with the Shift Assessment completed by the Licensed Practical Nurse today this shift.
[2019-03-21 06:17] LABS: BASOPHILS 0.2 % (0-2); EOSINOPHILS 2.2 % (0-7); HEMATOCRIT 33.6 % (36.0-48.0); HEMOGLOBIN 11.1 g/dL (12-16); IMMATURE GRANULOCYTES 0.6 % (0-5); LYMPHOCYTES 31.2 % (15-50); MCH 31.9 pg (26.0-34.0); MCV 96.6 fL (80.0-100.0); MEAN PLATELET VOLUME 9.7 fL (7.4-10.4); MONOCYTES 12.5 % (2-11); NEUTROPHILS 53.3 % (40-80); PLATELET COUNT 194 10x3/uL (130-400); RBC 3.48 10x6/uL (4.00-5.40); RDW 13.2 % (11.5-14.5); WBC 5.1 10x3/uL (4.8-10.8)
[2019-03-21 06:47] LABS: BILIRUBIN - TOTAL 0.22 mg/dL (0.2-1.3); CALCIUM 8.4 mg/dL (8.5-10.1); CARBON DIOXIDE 26.4 mmol/L (21.0-32.0); CREATININE - SERUM 1.7 mg/dL (0.6-1.3); POTASSIUM - SERUM 4.4 mmol/L (3.5-5.1); PROTEIN - SERUM 6.5 g/dL (6.4-8.2)
[2019-03-21 07:57] LABS: T3 - FREE 2.6 pg/mL (2.0-4.4)
[2019-03-21 08:12] VITALS: BP 111/63
--- NOTE | 2019-03-21 09:03 | NUR ---
PT RESTING IN BED, SHIFT ASSESSMENT PERFORMED. DENIES ANY PAIN AT THIS TIME, DENIES ANY FURTHER NEEDS, WILL CONT TO FOLLOW POC
[2019-03-21 11:02] VITALS: BP 135/79
[2019-03-21 11:14] LABS: FUNGUS STAIN Final report (())
[2019-03-21 11:14] LABS: THYROGLOBULIN ANTIBODY <1.0 IU/mL (0.0-0.9)
--- NOTE | 2019-03-21 12:28 | NUR ---
OT NOTE: PT REPORTED FEELING BETTER TODAY, BUT STILL WITH C/O DIZZINESS. AMB TO BATHROOM WITHOUT ASSIST; TOILET HYGIENE INDEP; CLOTHING MGMT INDEP; ABLE TO KELLY SLIPPERS WITH SET UP. AMB INTO HALLWAY WITH CGA X 80 FT; BED MOB WITHOUT ASSIST; SAT ON EOB TO PERFORM UE STRENGTHENING EXS; EDUCATED PT ON OTHER EXS TO BE PERFORMED THROUGHOUT THE DAY TO ASSIST WITH STRENGTH AND FUNCTIONAL ENDURANCE. RADHA NOYOLA, OTR/L
[2019-03-21 15:43] VITALS: BP 90/37
--- NOTE | 2019-03-21 19:07 | NUR ---
RECIEVED UP IN BED WITH EYES OPEN. ALERT AND ORIENTED. UP AD JAY TO B/R. IV TO LEFT CHEST PORT SL..TELEMETRY IN PLACE. DENIES ANY NEEDS AT THIS TIME.
[2019-03-21 20:25] VITALS: BP 105/55
[2019-03-22 00:37] VITALS: BP 99/57
[2019-03-22 06:23] LABS: BASOPHILS 0 % (0-2); EOSINOPHILS 2.1 % (0-7); HEMATOCRIT 34.7 % (36.0-48.0); HEMOGLOBIN 11.3 g/dL (12-16); LYMPHOCYTES 28.3 % (15-50); MCH 31.7 pg (26.0-34.0); MCHC 32.6 g/dL (31.0-37.0); MCV 97.2 fL (80.0-100.0); MEAN PLATELET VOLUME 9.7 fL (7.4-10.4); MONOCYTES 11.9 % (2-11); NEUTROPHILS 56.7 % (40-80); PLATELET COUNT 213 10x3/uL (130-400); RBC 3.57 10x6/uL (4.00-5.40); RDW 13.2 % (11.5-14.5); WBC 5.8 10x3/uL (4.8-10.8)
[2019-03-22 06:43] LABS: ALBUMIN 3.1 g/dL (3.4-5.0); ANION GAP 11.2 mmol/L (8-16); BILIRUBIN - TOTAL 0.21 mg/dL (0.2-1.3); CALCIUM 9.1 mg/dL (8.5-10.1); CARBON DIOXIDE 28.1 mmol/L (21.0-32.0); CREATININE - SERUM 1.3 mg/dL (0.6-1.3); POTASSIUM - SERUM 4.3 mmol/L (3.5-5.1); PROTEIN - SERUM 6.6 g/dL (6.4-8.2)
--- NOTE | 2019-03-22 07:30 | NUR ---
PT RESTING IN BED, SHIFT ASSESSMENT PERFORMED. DENIES ANY PAIN AT THIS TIME, WILL CONT TO FOLLOW POC
[2019-03-22 08:43] VITALS: BP 120/61
--- NOTE | 2019-03-22 12:00 | NUR ---
PT SITTING ON SIDE OF BED EATING LUNCH. DENIES ANY NEEDS AT THIS TIME, WILL CONT TO FOLLOW POC
[2019-03-22 12:24] VITALS: BP 116/58
--- NOTE | 2019-03-22 15:21 | NUR ---
PT DAUGHTER CONCERNED WITH PT STATING SHE "FEELS FUNNY" AND WANTED TO REVIEW HOME MEDICATIONS WITH NURSE. IT WAS FOUND THAT PT DOES NOT TAKE FLEXERIL AT HOME ANYMORE, HOME MEDICATION REQ UPDATED. PT HAS BEEN GETTING THIS MEDICATION TID SCHEDULED. SPOKE WITH FRANCINE TERRELL WHO GAVE ORDER TO D/C MEDICATION
[2019-03-22 16:08] VITALS: BP 101/65
[2019-03-22 20:20] VITALS: BP 110/70
[2019-03-23 00:02] VITALS: BP 113/67
[2019-03-23 03:50] VITALS: BP 123/67
[2019-03-23 04:26] LABS: BASOPHILS 0.1 % (0-2); EOSINOPHILS 1.8 % (0-7); HEMATOCRIT 33.8 % (36.0-48.0); HEMOGLOBIN 11.2 g/dL (12-16); IMMATURE GRANULOCYTES 0.4 % (0-5); LYMPHOCYTES 20.9 % (15-50); MCHC 33.1 g/dL (31.0-37.0); MCV 96.6 fL (80.0-100.0); MEAN PLATELET VOLUME 9.6 fL (7.4-10.4); MONOCYTES 8.1 % (2-11); NEUTROPHILS 68.7 % (40-80); PLATELET COUNT 204 10x3/uL (130-400); RDW 13.2 % (11.5-14.5); WBC 7.1 10x3/uL (4.8-10.8)
--- NOTE | 2019-03-23 04:37 | NUR ---
SLEEPING, NO DISTRESS NOTICED AT THIS TIME, BED IS LOW, SRX2, CALL LIGHT IN REACH, WILL CONTINUE PLAN OF CARE
[2019-03-23 04:42] LABS: ANION GAP 12.3 mmol/L (8-16); BILIRUBIN - TOTAL 0.27 mg/dL (0.2-1.3); CALCIUM 8.5 mg/dL (8.5-10.1); CARBON DIOXIDE 28.4 mmol/L (21.0-32.0); CREATININE - SERUM 1.3 mg/dL (0.6-1.3); POTASSIUM - SERUM 4.7 mmol/L (3.5-5.1); PROTEIN - SERUM 6.5 g/dL (6.4-8.2)
--- NOTE | 2019-03-23 05:13 | NUR ---
I have reviewed this patient and I concur with the Shift Assessment completed by the Licensed Practical Nurse today this shift.
--- NOTE | 2019-03-23 07:30 | NUR ---
PT RESTING IN BED, SHIFT ASSESSMENT PERFORMED. PT COMPLAINING OF NAUSEA, WILL GIVE PRN PHENERGIN WITH AM MEDICATIONS, DENIES ANY OTHER NEEDS AT THIS TIME, WILL CONT TO FOLLOW POC
[2019-03-23 07:53] VITALS: BP 121/66
[2019-03-23 11:17] VITALS: BP 101/50
--- NOTE | 2019-03-23 12:00 | NUR ---
PT RESTING IN BED, DENIES ANY NEEDS AT THIS TIME, WILL CONT TO FOLLOW POC
--- NOTE | 2019-03-23 13:13 | NUR ---
SPOKE WITH REGARDING HER NOTE STATING WILL GET LUNG BIOPSY NEXT WEEK. STATES IT WILL BE UP TO ON WHEN. ASKED IF NURSE COULD PUT IN ORDER FOR CONSULT TO AND APPROVAL GIVEN
[2019-03-23 15:59] VITALS: BP 120/69
--- NOTE | 2019-03-23 17:39 | NUR ---
PT RESTING IN BED, DENIES ANY NEEDS AT THIS TIME, WILL CONT TO FOLLOW POC
--- NOTE | 2019-03-23 19:14 | NUR ---
RECIEVED LAYING IN BED WITH EYES CLOSED. EASILY AROUSED WITH VERBAL STIMULI. O2@2 LITERS PER N/C. LEFT CHEST INFUSA PORT SL.. TELEMETRY IN PLACE. REQUIRES SBA WITH AMBULATION AND TRANSFERS. DENIES ANY NEEDS AT THIS TIME.
[2019-03-23 20:15] VITALS: BP 122/68
[2019-03-24 00:33] VITALS: BP 114/59
[2019-03-24 03:45] VITALS: BP 128/74
[2019-03-24 07:04] LABS: BASOPHILS 0 % (0-2); EOSINOPHILS 1.7 % (0-7); HEMATOCRIT 35.4 % (36.0-48.0); HEMOGLOBIN 11.5 g/dL (12-16); IMMATURE GRANULOCYTES 0.5 % (0-5); LYMPHOCYTES 15.9 % (15-50); MCH 31.4 pg (26.0-34.0); MCHC 32.5 g/dL (31.0-37.0); MCV 96.7 fL (80.0-100.0); MEAN PLATELET VOLUME 9.5 fL (7.4-10.4); MONOCYTES 10.5 % (2-11); NEUTROPHILS 71.4 % (40-80); PLATELET COUNT 197 10x3/uL (130-400); RBC 3.66 10x6/uL (4.00-5.40); WBC 8.4 10x3/uL (4.8-10.8)
[2019-03-24 07:27] VITALS: BP 122/75
[2019-03-24 07:27] LABS: ALBUMIN 3.2 g/dL (3.4-5.0); ANION GAP 12.1 mmol/L (8-16); BILIRUBIN - TOTAL 0.39 mg/dL (0.2-1.3); CALCIUM 8.6 mg/dL (8.5-10.1); CARBON DIOXIDE 28.2 mmol/L (21.0-32.0); CREATININE - SERUM 1.3 mg/dL (0.6-1.3); MAGNESIUM - SERUM 2.2 mg/dL (1.8-2.4); POTASSIUM - SERUM 4.3 mmol/L (3.5-5.1); PROTEIN - SERUM 6.8 g/dL (6.4-8.2)
--- NOTE | 2019-03-24 07:32 | NUR ---
REPORT RECEIVED. WILL CONTINUE WITH POC. PT CURRENTLY LYING SEMI FOWLERS. CALL LIGHT W/I REACH. SIDE RAIL UP X2. PT IS AAO AND UP WITH ASSIST. RR EVEN AND UNLABORED ON 2L 02. L.CHEST PORT IS SALINE LOCKED. NO S/S OF DISTRESS NOTED. PT DENIES ANY NEEDS AT THIS TIME. WILL CTM.
[2019-03-24 11:38] VITALS: BP 106/58
--- NOTE | 2019-03-24 14:11 | NUR ---
OT NOTE: PERFORMED TOILETING WITH SPV; ABLE TO AMB WITH MIN ASSIST; SIMPLE GROOMING AND FEEDING WITH SET UP; RADHA NOYOLA, OTR/L
--- NOTE | 2019-03-24 14:19 | NUR ---
I have reviewed this patient and I concur with the Shift Assessment completed by the Licensed Practical Nurse today this shift.
[2019-03-24 15:41] VITALS: BP 112/62
--- NOTE | 2019-03-24 17:01 | NUR ---
OT NOTE: PT COMPLETED BED MOB WITH CGA. PT COMPLETED EOB SITTING WITH SBA. PT COMPLETED GROOMING TASKS AT EOB WITH SET UP. THANK YOU, DENI SAINI
--- NOTE | 2019-03-24 19:16 | NUR ---
PT RESTING IN BED SUPINE WITH EYES CLOSED, BREATHING EVEN AND UNLABORED, NO S/S OF DISTRESS. WILL CONTINUE TO MONITOR.
[2019-03-24 20:44] VITALS: BP 110/62
--- NOTE | 2019-03-24 21:14 | NUR ---
EVENING MEDICATION GIVEN AT THIS TIME. NO PROBLEMS SWALLOWING. 150 MG (HALF TABLET) OXCARBAZEPINE GIVEN, 150MG (HALF TABLET) WASTED IN SHARPS. DENIES OTHER NEEDS AT THIS TIME WILL CONTINUE TO MONITOR.
--- NOTE | 2019-03-25 00:07 | NUR ---
PT RESTING LATERAL IN BED WITH EYES CLOSED. BREATHING EVEN AND UNLABORED, NO S/S OF DISTRESS. WILL CONTINUE TO MONITOR.
[2019-03-25 00:45] VITALS: BP 101/48
--- NOTE | 2019-03-25 02:18 | NUR ---
PT RESTING IN BED EYES CLOSED. BREATHING EVEN AND UNLABORED, NO S/S OF DISTRESS. WILL CONTINUE TO MONITOR.
[2019-03-25 05:36] LABS: BASOPHILS 0.1 % (0-2); EOSINOPHILS 2.5 % (0-7); HEMATOCRIT 33.3 % (36.0-48.0); HEMOGLOBIN 10.9 g/dL (12-16); IMMATURE GRANULOCYTES 0.3 % (0-5); LYMPHOCYTES 23.8 % (15-50); MCH 31.7 pg (26.0-34.0); MCHC 32.7 g/dL (31.0-37.0); MCV 96.8 fL (80.0-100.0); MEAN PLATELET VOLUME 9.9 fL (7.4-10.4); MONOCYTES 10.7 % (2-11); NEUTROPHILS 62.6 % (40-80); PLATELET COUNT 206 10x3/uL (130-400); RBC 3.44 10x6/uL (4.00-5.40); RDW 13.2 % (11.5-14.5); WBC 7.2 10x3/uL (4.8-10.8)
[2019-03-25 06:39] VITALS: BP 118/64
[2019-03-25 06:58] LABS: ANION GAP 14.7 mmol/L (8-16); BILIRUBIN - TOTAL 0.4 mg/dL (0.2-1.3); CALCIUM 8.8 mg/dL (8.5-10.1); CARBON DIOXIDE 25.5 mmol/L (21.0-32.0); CREATININE - SERUM 1.5 mg/dL (0.6-1.3); MAGNESIUM - SERUM 2.3 mg/dL (1.8-2.4); POTASSIUM - SERUM 4.2 mmol/L (3.5-5.1); PROTEIN - SERUM 6.7 g/dL (6.4-8.2)
[2019-03-25 07:57] VITALS: BP 119/58
--- NOTE | 2019-03-25 11:13 | NUR ---
OT NOTE: PT PERFORMED BETTER TODAY. REPORTED THAT DIZZINESS WAS BETTER; AMB TO BATHROOM WITH SBA; IN ROOM AMBULATION WITH CGA/MIN ASSIST AND USE OF RW; INDEP WITH BED MOB; UE AROM EXS TO IMPROVE STRENGTH AND ENDURANCE. RADHA NOYOLA, OTR/L
[2019-03-25 11:18] VITALS: BP 95/53
--- NOTE | 2019-03-25 13:56 | NUR ---
Nutrition follow-up: Diet: Regular; pt currently NPO for procedure PO intake ~50% of meals labs reviewed Wt: 133# RDN following.
--- NOTE | 2019-03-25 14:11 | NUR ---
I have reviewed this patient and I concur with the Shift Assessment completed by the Licensed Practical Nurse today this shift.
--- NOTE | 2019-03-25 16:39 | NUR ---
OT NOTE: PT COMPLETED BED MOB WITH SPV. PT COMPLETED EOB SITTING BALANCE WITH SPV. PT COMPLETED SIT TO STAND WITH SPV. PT COMPLETED ADL MOB TO TOILET WITH SBA/CGA. PT COMPLETED TOILETING TASKS WITH SBA. PT COMPLETED BUE AROM EXS AT EOB. THANK YOU, DENI SAINI
[2019-03-25 17:36] VITALS: BP 101/56
--- NOTE | 2019-03-25 17:42 | NUR ---
WOTHOUT CHANGES OR DISTRESS NOTED AT THIS TIME. DENIES NEEDS.
--- NOTE | 2019-03-25 19:34 | NUR ---
PT SUPINE IN BED, REQUESTS PROVIDED PROMPTLY. NO S/S OF DISTRESS AT THIS TIME. WILL CONTINUE TO MONITOR.
[2019-03-25 20:00] VITALS: BP 101/57
--- NOTE | 2019-03-25 21:36 | NUR ---
ADMINISTERED EVENING MEDICAITONS AT THIS TIME, NO PROBLEMS SWALLOWING. NO S/S OF DISTRESS. 150 MG (HALF TABLET) TRILEPTAL GIVEN, 150 MG (HALF TABLET) DISCARDED IN SHARPS. PT GETTING READY TO SHOWER. DENIES OTHER NEEDS AT THIS TIME. WILL CONTINUE TO MONITOR.
--- NOTE | 2019-03-25 23:47 | NUR ---
PT RESTING SUPINE IN BED, NO S/S OF DISTRESS. VITAL SIGNS STABLE. DENIES OTHER NEEDS AT THIS TIME. WILL CONTINUE TO MONITOR. PT IS NPO AFTER MIDNIGHT FOR BIOPYS 03/26/19
[2019-03-26] VITALS: BP 119/69
--- NOTE | 2019-03-26 01:52 | NUR ---
I have reviewed this patient and I concur with the Shift Assessment completed by the Licensed Practical Nurse today this shift.
--- NOTE | 2019-03-26 02:19 | NUR ---
PT RESTING SUPINE IN BED. NO S/S OF DISTRESS. DENIES NEEDS AT THIS TIME. WILL CONTINUE TO MONITOR.
[2019-03-26 04:30] VITALS: BP 129/96
[2019-03-26 04:50] LABS: BASOPHILS 0 % (0-2); EOSINOPHILS 2.6 % (0-7); HEMATOCRIT 32.7 % (36.0-48.0); HEMOGLOBIN 10.9 g/dL (12-16); IMMATURE GRANULOCYTES 0.3 % (0-5); LYMPHOCYTES 29.9 % (15-50); MCH 31.9 pg (26.0-34.0); MCHC 33.3 g/dL (31.0-37.0); MCV 95.6 fL (80.0-100.0); MEAN PLATELET VOLUME 9.7 fL (7.4-10.4); MONOCYTES 12.3 % (2-11); NEUTROPHILS 54.9 % (40-80); PLATELET COUNT 202 10x3/uL (130-400); RBC 3.42 10x6/uL (4.00-5.40); RDW 12.8 % (11.5-14.5); WBC 5.8 10x3/uL (4.8-10.8)
--- NOTE | 2019-03-26 04:57 | NUR ---
PT RESTING SUPINE IN BED. NO S/S OF DISTRESS, DENIES ANY NEEDS AT THIS TIME. WILL CONTINUE TO MONITOR.
--- NOTE | 2019-03-26 05:12 | NUR ---
UNABLE TO OBTAIN DAILY WEIGHT DUE TO BROKEN SCALE.
[2019-03-26 05:16] LABS: ALBUMIN 3.1 g/dL (3.4-5.0); BILIRUBIN - TOTAL 0.27 mg/dL (0.2-1.3); CALCIUM 8.7 mg/dL (8.5-10.1); CARBON DIOXIDE 26.9 mmol/L (21.0-32.0); CREATININE - SERUM 1.3 mg/dL (0.6-1.3); MAGNESIUM - SERUM 2.4 mg/dL (1.8-2.4); POTASSIUM - SERUM 3.9 mmol/L (3.5-5.1); PROTEIN - SERUM 6.8 g/dL (6.4-8.2)
[2019-03-26 09:17] VITALS: BP 135/72
--- NOTE | 2019-03-26 11:38 | NUR ---
I have reviewed this patient and I concur with the Shift Assessment completed by the Licensed Practical Nurse today this shift.
--- NOTE | 2019-03-26 12:00 | NUR ---
TO X-RAY PER BED
--- NOTE | 2019-03-26 13:46 | NUR ---
OT NOTE: ASKED IF PT WANTED TO GET A SHOWER BUT SHE STATED THAT SHE HAD ONE LAST NIGHT. PT ABLE TO AMB TO BATHROOM AND PERFORM TOILETING INDEP; ABLE TO KELLY SHOES INDEP. HOPES TO BE RETURNING HOME TODAY. INSTRUCTED TO CONTINUE WITH UE AND LE EXS TO MAINTAIN STRENGTH AND ENDURANCE. RADHA NOYOLA, OTR/L
[2019-03-26 14:07] VITALS: BP 108/54
--- NOTE | 2019-03-26 14:07 | NUR ---
OT NOTE: PT COMPLETED ADL MOB WITH SPV. PT COMPLETED SITTING BALANCE WITH MOD I. PT COMPLETED TOILETING TASKS WITH SPV . THANK YOU, DENI SAINI
[2019-03-26 15:10] LABS: FUNGUS MYCOLOGY CULTURE Preliminary report (())
[2019-03-26 17:13] LABS: CKMB 0.7 U/L (0.0-3.6); CREATINE KINASE 22 UL (21-215); TROPONIN-I 0.048 ng/mL (0.000-0.060)
[2019-03-26 17:36] VITALS: BP 142/82
--- NOTE | 2019-03-26 18:00 | NUR ---
TO ASSOCIATE MEDIA PLANNER
--- NOTE | 2019-03-26 19:05 | NUR ---
PT RECIEVED BACK FROM CHIEF DEVELOPMENT OFFICER. PT TO LIE FLAT UNTIL 2305. PT VISIBLY UPSET, CALMED PT. ADMINISTERED ZOFRAN FOR PT COMPLAINT OF NAUSEA. PT REQUESTED MEDICATION FOR PAIN, ROCIO ONEILL NOTIFIED. VITAL SIGNS ARE STABLE, NO S/S OF DISTRESS AT THE MOMENT. Q15 MINUTE VITALS. DENIES OTHER NEEDS AT THIS TIME. WILL CONTINUE TO MONITOR.
[2019-03-26 20:00] VITALS: BP 94/65
--- NOTE | 2019-03-26 22:11 | NUR ---
ADMINISTERED EVENING MEDICATION AT THIS TIME, NO TROUBLE SWALLOWING. PT IS PRODUCING MILD AMOUNT OF BLOOD TINGED SPUTUM, CONNECTED TO SELF SUCTION. DENIES OTHER NEEDS AT THIS TIME. WILL CONTINUE TO MONITOR.
--- NOTE | 2019-03-26 23:52 | NUR ---
ADMINISTERS PRN ZOFRAN FOR PT COMPLAINT OF NAUSEA. PT VOMITING RED BLOOD, NOTIFIED NINO, ORDERED A CHEST XRAY, TO BE READ TONIGHT. VITAL SIGNS ARE STABLE. WILL CONTINUE TO MONITOR.
[2019-03-27] VITALS: BP 108/65
--- NOTE | 2019-03-27 00:06 | NUR ---
PT RESTING COMFORTABLY IN BED, CHEST XRAY DONE. DENIES OTHER NEEDS AT THIS TIME. WILL CONTINUE TO MONITOR.
--- NOTE | 2019-03-27 00:55 | NUR ---
I have reviewed this patient and I concur with the Shift Assessment completed by the Licensed Practical Nurse today this shift.
--- NOTE | 2019-03-27 01:35 | NUR ---
ADMINISTERED PT TB SKIN TEST IN LEFT FOREARM, PER NINO FARFAN'S ORDER. READ IN 48-72 HOURS, PT TOLERATED PROCEDURE WELL.
--- NOTE | 2019-03-27 02:25 | NUR ---
PT RESTING SUPINE IN BED, BREATHING EVEN AND UNLABORED. NO S/S OF DISTRESS. WILL CONTINUE TO MONITOR.
[2019-03-27 04:00] VITALS: BP 100/50
--- NOTE | 2019-03-27 04:23 | NUR ---
PT RESTING LATERAL IN BED, 4 AM LINE DRAW PERFORMED PT TOLERATED PROCEDURE WELL. ALL NEEDS MET PROMPTLY. NO S/S OF DISTRESS. DENIES ANY OTHER NEEDS AT THIS TIME. WILL CONTINUE TO MONITOR.
[2019-03-27 05:41] LABS: BASOPHILS 0.2 % (0-2); EOSINOPHILS 0.2 % (0-7); IMMATURE GRANULOCYTES 0.3 % (0-5); LYMPHOCYTES 12.9 % (15-50); MCH 32.5 pg (26.0-34.0); MCV 95.6 fL (80.0-100.0); MEAN PLATELET VOLUME 10.1 fL (7.4-10.4); MONOCYTES 7.6 % (2-11); NEUTROPHILS 78.8 % (40-80); WBC 6.2 10x3/uL (4.8-10.8)
--- NOTE | 2019-03-27 06:00 | NUR ---
MORNING MEDICATION GIVEN AT THIS TIME, NO TROUBLE SWALLOWING. NO S/S OF DISTRESS. DENIES ANY OTHER NEEDS AT THIS TIME. WILL CONTINUE TO MONITOR.
[2019-03-27 06:08] LABS: ALBUMIN 2.9 g/dL (3.4-5.0); BILIRUBIN - TOTAL 0.2 mg/dL (0.2-1.3); CALCIUM 8.2 mg/dL (8.5-10.1); CARBON DIOXIDE 26.3 mmol/L (21.0-32.0); CREATININE - SERUM 1.5 mg/dL (0.6-1.3); MAGNESIUM - SERUM 2.3 mg/dL (1.8-2.4); PROTEIN - SERUM 6.4 g/dL (6.4-8.2)
[2019-03-27 06:11] LABS: ANION GAP 13.2 mmol/L (8-16); POTASSIUM - SERUM 4.5 mmol/L (3.5-5.1)
[2019-03-27 06:30] LABS: HEMATOCRIT 41.2 % (36.0-48.0); PLATELET COUNT 143 10x3/uL (130-400); RBC 4.31 10x6/uL (4.00-5.40)
--- NOTE | 2019-03-27 07:13 | NUR ---
REPORT RECEIVED. WILL CONTINUE WITH POC. PT CURRENTLY LYING ON LEFT SIDE RESTING. CALL LIGHT W/I REACH. FAMILY AT BEDSIDE. RR EVEN AND UNLABORED ON 3L HIGH FLOW NC. L.CHEST INFUSAPORT IS SALINE LOCKED. PT DENIES ANY NEEDS AT THIS TIME. NO S/S OF DISTRESS NOTED. WILL CTM.
[2019-03-27 09:20] VITALS: BP 110/55
[2019-03-27 13:19] VITALS: BP 104/50
[2019-03-27 17:43] VITALS: BP 104/59
--- NOTE | 2019-03-27 19:30 | NUR ---
AT REST WITH EYES CLOSED RESP EVEN AND UNLABERED SKIN IS WARM AND DRY BED LOW AND LOCKED AND CALL LIGHT IS IN REACH
[2019-03-27 20:00] VITALS: BP 123/52
--- NOTE | 2019-03-27 20:03 | NUR ---
PT SHOWED RUN OF VTACH ON MONITOR PT WAS ASYMPTOMATIC VS TAKEN POST V TACH....123/52 92 18 100% ATTENDIMNG MD NOTIFIED AND REFRIGERATOR TESTER ASSISTANT CHIEF ENGINEER FAMILY ALSO AWARE SKIN WARM AND DRY LCTA
[2019-03-28] VITALS: BP 98/56
--- NOTE | 2019-03-28 01:45 | NUR ---
I have reviewed this patient and I concur with the Shift Assessment completed by the Licensed Practical Nurse today this shift.
[2019-03-28 04:00] VITALS: BP 102/52
[2019-03-28 05:04] LABS: BASOPHILS 0.1 % (0-2); EOSINOPHILS 1.8 % (0-7); IMMATURE GRANULOCYTES 0.4 % (0-5); LYMPHOCYTES 26.2 % (15-50); MCH 31.5 pg (26.0-34.0); MCHC 32.9 g/dL (31.0-37.0); MCV 95.9 fL (80.0-100.0); MEAN PLATELET VOLUME 9.7 fL (7.4-10.4); MONOCYTES 11.4 % (2-11); NEUTROPHILS 60.1 % (40-80); PLATELET COUNT 163 10x3/uL (130-400); RDW 13.1 % (11.5-14.5); WBC 6.7 10x3/uL (4.8-10.8)
[2019-03-28 05:07] LABS: HEMOGLOBIN 9.2 g/dL (12-16); RBC 2.92 10x6/uL (4.00-5.40)
[2019-03-28 05:43] LABS: ALBUMIN 2.7 g/dL (3.4-5.0); ANION GAP 10.2 mmol/L (8-16); BILIRUBIN - TOTAL 0.19 mg/dL (0.2-1.3); CALCIUM 8.1 mg/dL (8.5-10.1); CREATININE - SERUM 1.5 mg/dL (0.6-1.3); MAGNESIUM - SERUM 2.3 mg/dL (1.8-2.4); POTASSIUM - SERUM 4.2 mmol/L (3.5-5.1)
[2019-03-28 07:52] VITALS: BP 106/64
--- NOTE | 2019-03-28 07:59 | NUR ---
REPORT RECEIVED. WILL CONTINUE WITH POC. PT CURRENTLY LYING SEMI FOWLERS. CALL LIGHT W/I REACH. PT IS AAO AND UP WITH ASSIST. RR EVEN AND UNLABORED ON 3L HIGH FLOW NC. CHILD AND YOUTH PROGRAM ASSISTANT STATED PT WAS IN VTAC IN THE 130S. WENT INTO ROOM AND PT STATES "I FEEL BETTER THAN I HAVE IN A LONG TIME. IM NOT NAUSEATED OR DIZZY, I FEEL GREAT." BP WAS 89/55 WHEN FIRST ASSESSED PT BUT HENRY TO 123/65 SHORTLY AFTER. PERFORMED 12 LEAD EKG ON PT WHICH SHOWED SINUS TACHYCARDIA AT 102. PT STILL REPORTED TO FEEL BETTER. VSS AND WNL. DISCUSSED WITH DIRECTOR PLANS NURSE WHO STATED SHE DID THE SAME THING LAST NIGHT AND CARDIOLOGY AND FRANCINE CHAN WAS AWARE OF THE SITUATION. WILL CTM CLOSELY.
--- NOTE | 2019-03-28 09:13 | NUR ---
RECEIVED VERBAL ORDERS TO ADMINISTER ADDITIONAL 200MG AMIODORONE PO BY DR.ST DEWITT. PLACED ORDER AND ADMINISTERED EXTRA AMIODORONE. WILL CTM.
--- NOTE | 2019-03-28 09:41 | NUR ---
administered aspirin, pt states non-allergic
[2019-03-28 12:01] VITALS: BP 109/65
--- NOTE | 2019-03-28 13:25 | NUR ---
Rehab Note- Acute Inpatient Rehab prescreen order received. The patient has [facility] insurance and would require a PreAuth prior to an acute inpatient rehab stay & would require 2 therapy disiplines- curretly receiving OT, but has been signed off from PT d/t too functional. The patient is noted too high level for acute inpatietn rehab per therapy nptes. Thank you for this referral! Angelique Moses RN Clinical Liaison, [facility] Rehab
[2019-03-28 14:10] LABS: BASOPHILS 0.1 % (0-2); EOSINOPHILS 1.5 % (0-7); HEMOGLOBIN 9.5 g/dL (12-16); IMMATURE GRANULOCYTES 0.7 % (0-5); LYMPHOCYTES 16.3 % (15-50); MCH 31.8 pg (26.0-34.0); MCHC 32.8 g/dL (31.0-37.0); MEAN PLATELET VOLUME 9.8 fL (7.4-10.4); MONOCYTES 10.6 % (2-11); NEUTROPHILS 70.8 % (40-80); PLATELET COUNT 185 10x3/uL (130-400); RBC 2.99 10x6/uL (4.00-5.40); RDW 13.1 % (11.5-14.5); WBC 7.5 10x3/uL (4.8-10.8)
--- NOTE | 2019-03-28 15:28 | NUR ---
PT CURRENTLY RESTING ON LEFT SIDE. CALL LIGHT W/I REACH. RR EVEN AND UNLABORED ON RA. NO S/S OF DISTRESS NOTED. WILL CTM.
[2019-03-28 15:38] VITALS: BP 95/52
--- NOTE | 2019-03-28 15:58 | NUR ---
Nutrition Follow Up: Pt stated that her appetite is improving and she is drinking Ensure. Diet: Regular; Ensure TID PO Intake: 57% meal avg BM: 03/27/19 Labs reviewed Meds noted including Lasix Rec continue current diet, supplement regimen. RD following.
--- NOTE | 2019-03-28 17:14 | MORECARE ---
CASE MANAGEMENT DISCHARGE SUMMARY PATIENT: CORTNEY IRELAND UNIT: [id number] ADM DATE: 03/12/19 AGE: 79 : 39 SEX: F ROOM/BED: D.8389 AUTHOR: MARCIAL,DOC PHYSICIAN: REFERRING PHYSICIAN: ROGER PEREZ MD DATE OF SERVICE: 03/28/19 Discharge Plan Patient Name: CORTNEY IRELAND Facility: [facility]:[place] : 1940 Planned Disposition: Home with Home Health Anticipated Discharge Date: Discharge Date: Expected LOS: Initial Reviewer: [id number] Initial Review Date: 03/14/2019 Generated: 03/28/19 6:14 pm Comments DCP- Discharge Planning Updated by [email or web address]: Prabhjot Piedra on 03/28/19 4:[address] Patient Name: CORTNEY IRELAND Encounter No: [id number] : 1940 Primary Insurance: [facility] MEDICARE SOLUTIONS Anticipated DC Date: Planned Disposition: Home with Home Health External Planned Provider:Ayasdi, BOYD Discharge Planning Comments: CM MET WITH PT IN ROOM TO DISCUSS DISCHARGE PLANNING AND NEEDS. PT HAS BEEN SIGNED OFF WITH THERAPY SERVICES HERE. PT DOES NOT WANT TO GO TO A CUSTODIAL FACILITY FOR REHAB. PT WANTS HOME HEALTH WITH [facility] IN [place] SHE HAS FAMILY WORKING FOR THEM. CHOICE SIGNED. PT REPORTS HER SON WILL PICK HER UP FOR DISCHARGE HOME. IMPORTANT MESSAGE FROM MEDICARE PROVIDED AND EXPLAINED. PT STATES SHE WILL DISCUSS DISCHARGE OPTIONS WITH HER DAUGHTER AGAIN ON SUNDAY. CM TO ARRANGE HOME HEALTH WITH [facility] IN [place] WITH PHYSICIAN AGREEMENT AND ORDERS. Forest Manager: Prabhjot Piedra DCP- Discharge Planning Updated by [id number]: Prabhjot Piedra on 03/14/19 3:[address] Patient Name: CORTNEY IRELAND Admission Status: ER Accout number: [id number] Admission Date: 03-12-2019 : 1940 Admission Diagnosis:MALIGNANT PLEURAL EFFUSION Attending: ROGER PEREZ Current LOS: 2 Anticipated DC Date: Planned Disposition: Home with Home Health Primary Insurance: [facility] MEDICARE SOLUTIONS PLANNED EXTERNAL PROVIDER: Ayasdi, BOYD Discharge Planning Comments: CM MET WITH PT IN ROOM TO DISCUSS DISCHARGE PLANNING AND NEEDS. PT REPORTS LIVING AT HOME DEPENDENTLY FOR BATHING WITH SON AND SON'S . PT HAS BEDSIDE COMMODE, CANE AND WALKER WITH NO MEDICAL EQUIPMENT PROVIDER PREFERENCE. PT HAS NO OUTSIDE SERVICES ASSISTING IN THE HOME. CM DISCUSSED AVAILABILITY OF HOME HEALTH, REHAB SERVICES AND MEDICAL EQUIPMENT. PT WANTS HOME HEALTH WITH [facility] IN [place] SHE HAS FAMILY WORKING FOR THEM. CHOICE SIGNED. PT REPORTS HER SON WILL PICK HER UP FOR DISCHARGE HOME. IMPORTANT MESSAGE FROM MEDICARE PROVIDED AND EXPLAINED. CM TO ARRANGE HOME HEALTH WITH [facility] IN [place] WITH PHYSICIAN AGREEMENT AND ORDERS. Forest Manager: Prabhjot Piedra NHPIA - Discharge Planning Initial Assessment Updated by [email or web address]: Prabhjot Piedra on 03/14/19 4:51 pm * Is the patient Alert and Oriented? Yes * How many steps to enter\exit or inside your home? 0-O / 4-I * PCP KWESI LOPEZ AT [facility] * Pharmacy [facility] IN [place] * Preadmission Environment Home with Family * ADLs Partial Dependent * Partial ADLs (Assistance needed) Bathing * Equipment Bedside Commode Cane Walker * Other Equipment NO MEDICAL EQUIPMENT PROVIDER PREFERNECE * List name and contact numbers for known caregivers / representatives who currently or will assist patient after discharge: LUKAS IRELAND, SPOUSE, * Verbal permission to speak to the caregivers and representatives has been obtained from the patient. N/A * Community resources currently utilized None * Please name any agencies selected above. NONE * Additional services required to return to the preadmission environment? No * Can the patient safely return to the preadmission environment? Yes * Has this patient been hospitalized within the prior 30 days at any hospital? Yes Coverage Notice Reviewer: [id number] Lisa Piedra Notice Issued Date-Time: 03/14/2019 9:40 Notice Type: IM Discharge Notice Notice Delivered To: Patient Relationship to Patient: Program Architect Name: Delivery Method: HAND - Hand Delivered Kennedi Days: Prior Verbal Notification: Recipient Understood Notice: Yes Recipient Signature: Yes Med Rec Note Co-signed by Attending: Coverage Notice Comment: Reviewer: [id number] Lisa Piedra Notice Issued Date-Time: 03/14/2019 9:40 Notice Type: Patient Choice Letter Notice Delivered To: Patient Relationship to Patient: Program Architect Name: Delivery Method: HAND - Hand Delivered Kennedi Days: Prior Verbal Notification: Recipient Understood Notice: Yes Recipient Signature: Yes Med Rec Note Co-signed by Attending: Coverage Notice Comment: [facility] GARCIADEB Reviewer: [id number] Lisa Piedra Notice Issued Date-Time: 03/28/2019 14:40 Notice Type: IM Discharge Notice Notice Delivered To: Patient Relationship to Patient: Program Architect Name: Delivery Method: HAND - Hand Delivered Kennedi Days: Prior Verbal Notification: Recipient Understood Notice: Yes Recipient Signature: Yes Med Rec Note Co-signed by Attending: Coverage Notice Comment: Last DP export: 03/14/19 3:58 p Patient Name: CORTNEY IRELAND Page [phone] at 1714 All edits/amendments must be made on the electronic document DICTATION DATE: 03/28/191712 NITROCELLULOSE MAKER: CARMINE 03/28/191712 RPT#: [id number] DC DATE: STATUS: ADM IN [facility] [address] [place] [address] END OF REPORT
--- NOTE | 2019-03-28 18:36 | NUR ---
REMOVED DRESSING FROM RIGHT FEMORAL CATH SITE. SITE IS C/D/I BUT THERE IS A LARGE HEMATOMA ENCIRCELING THE CATH SITE. PT REPORTS MILD SORENESS. PT ASSISTED TO AND FROM BATHROOM WHERE PT HAD SMALL BM. PT DENIES ANY NEEDS. WILL CTM.
[2019-03-28 20:00] VITALS: BP 97/53
--- NOTE | 2019-03-28 20:00 | NUR ---
INITIAL ROUNDS AND ASSESSMENT COMPLETED. PT RESTING WITH NO DISTRESS. RESPS EVEN/NONLABORED. SEE ASSESSMENT. CALL LIGHT IN REACH. CPOC.
--- NOTE | 2019-03-28 22:01 | NUR ---
BEDTIME MEDS GIVEN.
[2019-03-29] VITALS (7 sets, daily range): BP systolic 82–115; BP diastolic 30–59
--- NOTE | 2019-03-29 04:32 | NUR ---
LABS COLLECTED PER RN FROM INFUSAPORT. PT RESTING. VOICING NO NEEDS. CPOC.
[2019-03-29 04:59] LABS: HEMATOCRIT 26.2 % (36.0-48.0); HEMOGLOBIN 8.5 g/dL (12-16); MCH 31.7 pg (26.0-34.0); MCHC 32.4 g/dL (31.0-37.0); MCV 97.8 fL (80.0-100.0); MEAN PLATELET VOLUME 9.5 fL (7.4-10.4); PLATELET COUNT 166 10x3/uL (130-400); RBC 2.68 10x6/uL (4.00-5.40); RDW 13.2 % (11.5-14.5); WBC 7.1 10x3/uL (4.8-10.8)
[2019-03-29 05:05] LABS: CARBON DIOXIDE 30.4 mmol/L (21.0-32.0); CREATININE - SERUM 1.3 mg/dL (0.6-1.3); POTASSIUM - SERUM 4.4 mmol/L (3.5-5.1)
[2019-03-29 05:24] LABS: EOSINOPHILS 3 % (0-7); LYMPHOCYTES 26 % (15-50); MONOCYTES 10 % (2-11); NEUTROPHILS 61 % (40-80); PLATELET ESTIMATE NORMAL
--- NOTE | 2019-03-29 07:27 | NUR ---
REPORT RECIEVED AND ROUNDING COMPLETE. PATIENT LAYING IN BED ON LEFT SIDE. EYES CLOSED. PATIENT IS WEARING NC WITH O2 AT 2L. PATIENT'S BREATHING IS SHALLOW AND EVEN. PATIENT IS SHOWING NO S/SX OF DISTRESS AT THIS TIME. PATIENT HAS A LEFT INFUSAPORT THAT IS ACCESSED, DRESSING C/D/I, SWAB CAP IN USE. CALL LIGHT WITHIN REACH AND BED IN LOWEST POSITION.
--- NOTE | 2019-03-29 10:55 | NUR ---
I have reviewed this patient and I concur with the Shift Assessment completed by the Licensed Practical Nurse today this shift.
--- NOTE | 2019-03-29 19:45 | NUR ---
INITIAL ROUNDS AND ASSESSMENT COMPLETED. ASSISTED PT UP TO BATHROOM TO VOID. VSS. BP RUNNING 99/55. MULTIPLE FAMILY NOW IN ROOM AND VISITING WITH PATIENT.
--- NOTE | 2019-03-29 21:54 | NUR ---
BEDTIME MEDS GIVEN TO PATIENT. FAMILY STILL VISITING. CALL LIGHT IN REACH. CPOC.
[2019-03-30] VITALS: BP 131/71
[2019-03-30 04:00] VITALS: BP 121/71
[2019-03-30 05:11] LABS: BASOPHILS 0.2 % (0-2); EOSINOPHILS 2.4 % (0-7); HEMATOCRIT 29.1 % (36.0-48.0); HEMOGLOBIN 9.5 g/dL (12-16); IMMATURE GRANULOCYTES 1.7 % (0-5); LYMPHOCYTES 27.6 % (15-50); MCH 32.1 pg (26.0-34.0); MCHC 32.6 g/dL (31.0-37.0); MCV 98.3 fL (80.0-100.0); MEAN PLATELET VOLUME 9.4 fL (7.4-10.4); NEUTROPHILS 59.1 % (40-80); PLATELET COUNT 193 10x3/uL (130-400); RBC 2.96 10x6/uL (4.00-5.40); RDW 13.7 % (11.5-14.5); WBC 8.5 10x3/uL (4.8-10.8)
[2019-03-30 05:23] LABS: ANION GAP 11.4 mmol/L (8-16); CALCIUM 8.5 mg/dL (8.5-10.1); CARBON DIOXIDE 29.3 mmol/L (21.0-32.0); CREATININE - SERUM 1.3 mg/dL (0.6-1.3); POTASSIUM - SERUM 4.7 mmol/L (3.5-5.1)
--- NOTE | 2019-03-30 06:00 | NUR ---
PT HAS BEEN ASSISTED TO BATHROOM BY STAFF SEVERAL TIMES DURING THE NIGHT. SHE HAS HAD MULTIPLE FAMILY VISITING AND ONE FAMILY MEMBER ACTUALLY TOOK HER OUTSIDE TO GET SOME FRESH AIR. PT HAS BEEN LAUGHING AND ENJOYING HER VISITS. CPOC. REPORT TO ONCOMING SHIFT.
--- NOTE | 2019-03-30 07:00 | NUR ---
REPORT RECEIVED. ALERT ABLE TO VOICE NEEDS. RIGHT HAND SALINE LOCK IN PLACE. RESP EVEN WITHOUT LABOR. O2 ON . MULTIPLE FAMILY MEMBERS AT BEDSIDE. CL IN REACH. DENIES ANY C/O.
[2019-03-30 07:41] VITALS: BP 120/66
--- NOTE | 2019-03-30 14:19 | NUR ---
MULTIPLE FAMILY MEMBERS HERE ON AND OFF TODAY. DR PHILLIPS HAS BEEN BY TWICE TO ANSWER HER AND THE FAMILY'S QUESTIONS ABOUT IF SHE WANTS CHEMO OR NOT. THEY ARE NOT DECIDED YET AND WILL LET ME KNOW IF THEY DECIDE TO PROCEED WITH CHEMO. SHE REQUEST TO GET UP IN W/C WITH PORTABLE O2 ON IT. SOME OF HER FAMILY HAVE TAKEN HER OUT OF THE ROOM FOR A LITTLE WHILE OUT AND AROUND THE HALLWAYS
--- NOTE | 2019-03-30 14:29 | NUR ---
NURSE FROM [facility] CAME OVER TO HELP ANSWERS THE FAMILY'S AND PATIENTS QUESTIONS CONCERNING CHEMO PROCESS.
--- NOTE | 2019-03-30 16:00 | NUR ---
DR BETANCUR ASSESSED PORT TO LEFT CHEST. FAMILY OUT IN HALLWAY
[2019-03-30 16:12] VITALS: BP 120/72
[2019-03-30 20:00] VITALS: BP 95/57
--- NOTE | 2019-03-30 20:18 | NUR ---
PHONE CALL FROM DR PHILLIPS. NEW ORDERS TO START ALLOPURINAL 100MG TID TONIGHT AND TO OBTAIN A URIC ACID LEVEL IN AM. PT TO BE ON TELEMETRY AT ALL TIMES. MOVE TO [facility] WHEN BED AVAILABLE.
[2019-03-31 05:32] LABS: BASOPHILS 0 % (0-2); HEMOGLOBIN 9.2 g/dL (12-16); LYMPHOCYTES 22.6 % (15-50); MCH 31.5 pg (26.0-34.0); MCHC 31.7 g/dL (31.0-37.0); MCV 99.3 fL (80.0-100.0); MEAN PLATELET VOLUME 9.5 fL (7.4-10.4); MONOCYTES 9.3 % (2-11); NEUTROPHILS 64.1 % (40-80); PLATELET COUNT 205 10x3/uL (130-400); RBC 2.92 10x6/uL (4.00-5.40); RDW 13.9 % (11.5-14.5); WBC 8.1 10x3/uL (4.8-10.8)
[2019-03-31 06:11] LABS: ANION GAP 10.5 mmol/L (8-16); CALCIUM 8.4 mg/dL (8.5-10.1); CARBON DIOXIDE 29.6 mmol/L (21.0-32.0); CREATININE - SERUM 1.3 mg/dL (0.6-1.3); POTASSIUM - SERUM 5.1 mmol/L (3.5-5.1); URIC ACID 5.1 mg/dL (2.6-7.2)
--- NOTE | 2019-03-31 08:00 | NUR ---
PT SITTING UP IN BED EATING BREAKFAST, MEDICATIONS GIVEN ORDERED. SHIFT ASSESSMENT PERFORMED. DENIES AND PAIN OR NEEDS AT THIS TIME. CALL LIGHT IN REACH.
[2019-03-31 08:52] VITALS: BP 122/70
--- NOTE | 2019-03-31 08:57 | NUR ---
PT COMPLAINS OF NAUSEA AND PRN ZOFRAN GIVEN ORDERED. WILL CONTINUE TO FOLLOW PLAN OF CARE. PIV TO LEFT HAND INFILTRATED, REMOVED WITH CATH TIP INTACT. PT TOLERATED WELL.
--- NOTE | 2019-03-31 12:00 | NUR ---
PT RESTING IN BED EATING LUNCH. FAMILY AT BEDSIDE. DENIES ANY OTHER NEEDS AT THIS TIME, WILL CONT TO FOLLOW POC
[2019-03-31 12:55] VITALS: BP 101/56
[2019-03-31 14:54] VITALS: BP 100/63
--- NOTE | 2019-03-31 16:00 | NUR ---
PT COMPLAINS OF CONSTIPATION, SPOKE TO FRANCINE TERRELL AND NEW ORDER RECIEVED TO START MIRALAX QDAY PRN.
--- NOTE | 2019-03-31 17:20 | NUR ---
PT RESTING IN BED, STATES SHE IS NOT VERY HUNGRY. DENIES ANY OTHER NEEDS AT THIS TIME, WILL CONT TO FOLLOW POC
[2019-03-31 21:13] VITALS: BP 103/58
[2019-04-01 01:24] VITALS: BP 120/60
[2019-04-01 04:00] VITALS: BP 106/55
--- NOTE | 2019-04-01 07:21 | NUR ---
patient had a stool with bright red blood at start of shift. then anouther one at about 6am call to methane gas collection system operator new orders for occult stool. order placed hat placed in totlet oncomming nurse informed. resting with no s/s of distress.call light in reach.
--- NOTE | 2019-04-01 07:29 | NUR ---
INITIAL ROUNDING, WHITE BOARD UPDATED. PATIENT IS AWAKE AND SITTING UP IN THE BED. TELE IN PLACE, ON ROOM AIR, NC IS AROUNG THE PATIENTS NECK AND NOT IN PLACE, SHE STATES "ITS THERE IF I NEED IT". PATIENT STATES "I AM CONCERNED ABOUT MY RECTAL BLEEDING, IT FEELS LIKE IT IS FILLING UP DOWN THERE" THERE IS A HAD IN THE BATHROOM TO COLLECT STOOL FOR SAMPLE ORDERED, PATIENT IS AWARE OF THE ORDER AND WILL CALL FOR HELP. PATIENT IS REQUESTING TO KEEP HER DOOR OPEN AT ALL TIMES. CALL LIGHT IN REACH
--- NOTE | 2019-04-01 07:36 | NUR ---
NURSE FILM PROCESSING SHIFT SUPERVISOR RADHA CALLED AND SPOKE WITH ASHLEY IN THE PHARMACY REPORTING THE PATIENT IS REFUSING HER CHEMOTHERAPY TODAY.
[2019-04-01 07:52] LABS: BASOPHILS 0.1 % (0-2); EOSINOPHILS 3.2 % (0-7); HEMATOCRIT 27.6 % (36.0-48.0); HEMOGLOBIN 8.7 g/dL (12-16); LYMPHOCYTES 24.2 % (15-50); MCH 31.6 pg (26.0-34.0); MCHC 31.5 g/dL (31.0-37.0); MCV 100.4 fL (80.0-100.0); MEAN PLATELET VOLUME 9.7 fL (7.4-10.4); MONOCYTES 10.2 % (2-11); NEUTROPHILS 61.3 % (40-80); PLATELET COUNT 210 10x3/uL (130-400); RBC 2.75 10x6/uL (4.00-5.40); RDW 14.1 % (11.5-14.5); WBC 7.1 10x3/uL (4.8-10.8)
[2019-04-01 08:11] LABS: ANION GAP 13.2 mmol/L (8-16); CALCIUM 8.3 mg/dL (8.5-10.1); CARBON DIOXIDE 26.5 mmol/L (21.0-32.0); CREATININE - SERUM 1.2 mg/dL (0.6-1.3); POTASSIUM - SERUM 4.7 mmol/L (3.5-5.1)
[2019-04-01 09:30] VITALS: BP 124/64
[2019-04-01 13:32] VITALS: BP 100/60
--- NOTE | 2019-04-01 14:50 | NUR ---
NUTRITION F/U PT TOLERATING REG DIET WITH ENSURE. 25 TO 75% INTAKE RECENT MEALS. WILL CONTINUE TO PROVIDE DIET AND ENSURE. MONITOR PT PROGRESS. RD FOLLOWING
[2019-04-01 17:19] VITALS: BP 91/51
[2019-04-01 21:47] VITALS: BP 103/54
[2019-04-02] VITALS (12 sets, daily range): BP systolic 91–119; BP diastolic 56–67
[2019-04-02 07:41] LABS: BASOPHILS 0.2 % (0-2); EOSINOPHILS 2.3 % (0-7); HEMATOCRIT 25.5 % (36.0-48.0); HEMOGLOBIN 8.1 g/dL (12-16); IMMATURE GRANULOCYTES 1.1 % (0-5); LYMPHOCYTES 24.2 % (15-50); MCHC 31.8 g/dL (31.0-37.0); MCV 100.8 fL (80.0-100.0); MEAN PLATELET VOLUME 9.6 fL (7.4-10.4); MONOCYTES 7.4 % (2-11); NEUTROPHILS 64.8 % (40-80); PLATELET COUNT 194 10x3/uL (130-400); RBC 2.53 10x6/uL (4.00-5.40); RDW 14.4 % (11.5-14.5); WBC 6.6 10x3/uL (4.8-10.8)
[2019-04-02 07:45] LABS: ANION GAP 11.8 mmol/L (8-16); CALCIUM 7.9 mg/dL (8.5-10.1); CARBON DIOXIDE 28.2 mmol/L (21.0-32.0); CREATININE - SERUM 1.3 mg/dL (0.6-1.3)
--- NOTE | 2019-04-02 11:43 | NUR ---
CHEMO CARBOPLATIN 300MG IN 250CC NS INFUSING TO LEFT PORT AFTER EXCELLENT BLOOD RETURN NOTED. PT RESING QUIETLY WITH EYES CLOSED BUT DOES RESPOND WHEN ASKED QUESTIONS. VS 112/65 R 24 P 102 2LNS 95%. DAUGHTER AT BEDSIDE. YELLOW CHEMO BUCKET IN ROOM AND SIGNS X 2 FOR DOUBLE FLUSH/DOUBLE GLOVE HUNG. CHEMO INFORMATION SHEET TO DAUGHTER
--- NOTE | 2019-04-02 11:56 | NUR ---
pt tolerating without complaints. positioned on left side for comfort. vs stable. call light in reach. daughter at bedside
--- NOTE | 2019-04-02 12:33 | NUR ---
IST CHEMO FINSHED , 2ND BAG HANGED PORT FLUSHED WITH A GOOD BLOOD RETURN NOTED VS TAKEN
--- NOTE | 2019-04-02 13:18 | NUR ---
I have reviewed this patient and I concur with the Shift Assessment completed by the Licensed Practical Nurse today this shift.
--- NOTE | 2019-04-02 13:19 | NUR ---
chemo completed. vs stable. infusaport flushed with 10 cc NS after excellent blood return noted. family at bedside. call light in reach
--- NOTE | 2019-04-02 20:00 | NUR ---
ASSISTED PATIENT UP TO BATHROOM AND BACK TO BED WITH NO PROBLEMS. DENIES ANY PAIN AT THIS TIME AND STATES " I JUST WANT TO NAP FOR A WHILE" BED LOW, CALL LIGHT IN REACH, RAILS UP X 2. WILL CONTINUE TO MONITOR.
--- NOTE | 2019-04-02 21:46 | NUR ---
ASSISTED PT UP TO TOILET AND BACK TO BED. COUGHIN UP SMALL AMOUNTS OF OLD BROWN/BLOOD. DENIES NEEDS AT THIS TIME, READY TO GO TO BED. BED LOW, RAILS UP X 3, CALL LIGHT IN REACH.
[2019-04-03 00:50] VITALS: BP 96/54
[2019-04-03 04:47] VITALS: BP 102/60
[2019-04-03 06:37] LABS: BASOPHILS 0.1 % (0-2); EOSINOPHILS 0.1 % (0-7); HEMATOCRIT 25.6 % (36.0-48.0); HEMOGLOBIN 8.1 g/dL (12-16); IMMATURE GRANULOCYTES 0.4 % (0-5); LYMPHOCYTES 14.1 % (15-50); MCH 31.9 pg (26.0-34.0); MCHC 31.6 g/dL (31.0-37.0); MCV 100.8 fL (80.0-100.0); MEAN PLATELET VOLUME 9.7 fL (7.4-10.4); MONOCYTES 6.1 % (2-11); NEUTROPHILS 79.2 % (40-80); PLATELET COUNT 212 10x3/uL (130-400); RBC 2.54 10x6/uL (4.00-5.40); RDW 14.9 % (11.5-14.5); WBC 6.9 10x3/uL (4.8-10.8)
[2019-04-03 06:52] LABS: ALBUMIN 2.7 g/dL (3.4-5.0); ANION GAP 11.8 mmol/L (8-16); BILIRUBIN - TOTAL 0.35 mg/dL (0.2-1.3); CALCIUM 8.1 mg/dL (8.5-10.1); CARBON DIOXIDE 25.5 mmol/L (21.0-32.0); CREATININE - SERUM 1.3 mg/dL (0.6-1.3); POTASSIUM - SERUM 5.3 mmol/L (3.5-5.1)
--- NOTE | 2019-04-03 07:15 | NUR ---
REC'D IN BED AWAKE AND ALERT. RESP EVEN AND UNLABORED WITH NO DISTRESS NOTED. CAN EXPRESS NEEDS AND WANTS WITH ON C/O NOTED OR VOICED AT THIS TIME. ASSESSMENT COMPLETED. C/L IN REACH AT BEDSIDE.
[2019-04-03 08:54] LABS: % SATURATION 48 % (15-55); IRON 132 ug/dl (35-150); TOTAL IRON BIND CAPACITY 271 ug/dl (260-445); UNSAT IRON BIND CAPACITY 139 ug/dl (150-375)
[2019-04-03 09:48] VITALS: BP 106/60
[2019-04-03] MEDS ORDERED: K-DUR20 MEQ PO (11:30)
[2019-04-03] MEDS ORDERED: ZYLOPRIM100 MG PO (11:31)
[2019-04-03] MEDS ORDERED: FLUTICASONE PRO16 GM NASAL (11:31)
--- NOTE | 2019-04-03 12:12 | MORECARE ---
CASE MANAGEMENT DISCHARGE SUMMARY PATIENT: CORTNEY IRELAND UNIT: [id number] ADM DATE: 03/12/19 AGE: 79 : 39 SEX: F ROOM/BED: D.2230 AUTHOR: MARCIAL,DOC PHYSICIAN: REFERRING PHYSICIAN: ROGER PEREZ MD DATE OF SERVICE: 04/03/19 Discharge Plan Patient Name: CORTNEY IRELAND Facility: [facility]:[place] : 1940 Planned Disposition: Home with Home Health Anticipated Discharge Date: Discharge Date: Expected LOS: Initial Reviewer: [email or web address] Initial Review Date: 03/14/2019 Generated: 04/03/19 1:11 pm DCP- Discharge Planning Updated by [id number]: Prabhjot Piedra on 03/28/19 4:[address] Patient Name: CORTNEY IRELAND Encounter No: [id number] : 1940 Primary Insurance: [facility] MEDICARE SOLUTIONS Anticipated DC Date: Planned Disposition: Home with Home Health External Planned Provider:[employer], BOYD Discharge Planning Comments: CM MET WITH PT IN ROOM TO DISCUSS DISCHARGE PLANNING AND NEEDS. PT HAS BEEN SIGNED OFF WITH THERAPY SERVICES HERE. PT DOES NOT WANT TO GO TO A ASSISTED FACILITY FOR REHAB. PT WANTS HOME HEALTH WITH [facility] IN [place] SHE HAS FAMILY WORKING FOR THEM. CHOICE SIGNED. PT REPORTS HER SON WILL PICK HER UP FOR DISCHARGE HOME. IMPORTANT MESSAGE FROM MEDICARE PROVIDED AND EXPLAINED. PT STATES SHE WILL DISCUSS DISCHARGE OPTIONS WITH HER DAUGHTER AGAIN ON SUNDAY. CM TO ARRANGE HOME HEALTH WITH [facility] IN [place] WITH PHYSICIAN AGREEMENT AND ORDERS. Crtt: Prabhjot Piedra DCP- Discharge Planning Updated by [email or web address]: Prabhjot Piedra on 03/14/19 3:[address] Patient Name: CORTNEY IRELAND Admission Status: ER Accout number: [id number] Admission Date: 03-12-2019 : 1940 Admission Diagnosis:MALIGNANT PLEURAL EFFUSION Attending: ROGER PEREZ Current LOS: 2 Anticipated DC Date: Planned Disposition: Home with Home Health Primary Insurance: [employer] MEDICARE SOLUTIONS PLANNED EXTERNAL PROVIDER: [employer], BOYD Discharge Planning Comments: CM MET WITH PT IN ROOM TO DISCUSS DISCHARGE PLANNING AND NEEDS. PT REPORTS LIVING AT HOME DEPENDENTLY FOR BATHING WITH SON AND SON'S . PT HAS BEDSIDE COMMODE, CANE AND WALKER WITH NO MEDICAL EQUIPMENT PROVIDER PREFERENCE. PT HAS NO OUTSIDE SERVICES ASSISTING IN THE HOME. CM DISCUSSED AVAILABILITY OF HOME HEALTH, REHAB SERVICES AND MEDICAL EQUIPMENT. PT WANTS HOME HEALTH WITH [facility] IN [place] SHE HAS FAMILY WORKING FOR THEM. CHOICE SIGNED. PT REPORTS HER SON WILL PICK HER UP FOR DISCHARGE HOME. IMPORTANT MESSAGE FROM MEDICARE PROVIDED AND EXPLAINED. CM TO ARRANGE HOME HEALTH WITH [facility] IN [place] WITH PHYSICIAN AGREEMENT AND ORDERS. Crtt: [facility] Initial Assessment Updated by [id number]: Prabhjot Piedra on 03/14/19 4:51 pm * Is the patient Alert and Oriented? Yes * How many steps to enter\exit or inside your home? 0-O / 4-I * PCP KWESI LOPEZ AT [facility] * Pharmacy [facility] IN [place] * Preadmission Environment Home with Family * ADLs Partial Dependent * Partial ADLs (Assistance needed) Bathing * Equipment Bedside Commode Cane Walker * Other Equipment NO MEDICAL EQUIPMENT PROVIDER PREFERNECE * List name and contact numbers for known caregivers / representatives who currently or will assist patient after discharge: LUKAS IRELAND, SPOUSE, * Verbal permission to speak to the caregivers and representatives has been obtained from the patient. N/A * Community resources currently utilized None * Please name any agencies selected above. NONE * Additional services required to return to the preadmission environment? No * Can the patient safely return to the preadmission environment? Yes * Has this patient been hospitalized within the prior 30 days at any hospital? Yes External Providers External Provider: [facility] Next Contact Date: Service Request Date: Service Type: Resolution: Reviewer: Comments: Coverage Notice Reviewer: [id number] Lisa Piedra Notice Issued Date-Time: 03/14/2019 9:40 Notice Type: IM Discharge Notice Notice Delivered To: Patient Relationship to Patient: Certification Technician Name: Delivery Method: HAND - Hand Delivered Kennedi Days: Prior Verbal Notification: Recipient Understood Notice: Yes Recipient Signature: Yes Med Rec Note Co-signed by Attending: Coverage Notice Comment: Reviewer: [id number] Lisa Piedra Notice Issued Date-Time: 03/14/2019 9:40 Notice Type: Patient Choice Letter Notice Delivered To: Patient Relationship to Patient: Certification Technician Name: Delivery Method: HAND - Hand Delivered Kennedi Days: Prior Verbal Notification: Recipient Understood Notice: Yes Recipient Signature: Yes Med Rec Note Co-signed by Attending: Coverage Notice Comment: DEB FIELDS Reviewer: [id number] - Prabhjot Piedra Notice Issued Date-Time: 03/28/2019 14:40 Notice Type: IM Discharge Notice Notice Delivered To: Patient Relationship to Patient: Certification Technician Name: Delivery Method: HAND - Hand Delivered Kennedi Days: Prior Verbal Notification: Recipient Understood Notice: Yes Recipient Signature: Yes Med Rec Note Co-signed by Attending: Coverage Notice Comment: Reviewer: [id number] - Dunia Garibay Notice Issued Date-Time: 04/03/2019 10:49 Notice Type: IM Discharge Notice Notice Delivered To: Patient Relationship to Patient: Self Certification Technician Name: Delivery Method: HAND - Hand Delivered Kennedi Days: Prior Verbal Notification: Recipient Understood Notice: Yes Recipient Signature: Yes Med Rec Note Co-signed by Attending: Coverage Notice Comment: IMM explained, signed, given, copy placed in MR Last DP export: 03/28/19 4:14 pm Patient Name: CORTNEY IRELAND Page [phone] at 1212 All edits/amendments must be made on the electronic document DICTATION DATE: 04/03/[address] MAN: CARMINE 04/03/19 1211 RPT#: [id number] DC DATE: STATUS: ADM IN [facility] [address] [place] [address] END OF REPORT
--- NOTE | 2019-04-03 12:25 | MORECARE ---
CASE MANAGEMENT DISCHARGE SUMMARY PATIENT: CORTNEY IRELAND UNIT: [id number] ADM DATE: 03/12/19 AGE: 79 : 38 SEX: F ROOM/BED: D.2230 AUTHOR: MARCIAL,DOC PHYSICIAN: REFERRING PHYSICIAN: ROGER PEREZ MD DATE OF SERVICE: 04/03/19 Discharge Plan Patient Name: CORTNEY IRELAND Facility: [facility]:[place] : 1940 Planned Disposition: Home with Home Health Anticipated Discharge Date: Discharge Date: Expected LOS: Initial Reviewer: [id number] Initial Review Date: 03/14/2019 Generated: 04/03/19 1:25 pm Comments DCP- Discharge Planning Updated by [id number]: Dunia Garibay on 04/03/19 11:[address] She is going to be discharged today. Daughter is at bedside. I discussed home health vs hospice with her and her daughter. Daughter states they have already discussed it and she would like to have [facility] in [place]. I called Natasha at [facility] and informed her she would also need oxygen, clinical faxed. Natasha states they use [facility] for oxygen and will order it from there. I called Ramila at [facility] to notify her that [facility] will be sending an order for oxygen and that she would need a portable prior to discharging here. CM will continue to follow and assist with discharge planning/needs. DCP- Discharge Planning Updated by [id number]: Prabhjot Piedra on 03/28/19 4:[address] Patient Name: CORTNEY IRELAND Encounter No: [id number] : 1940 Primary Insurance: [employer] Anticipated DC Date: Planned Disposition: Home with Home Health External Planned Provider:[facility] SEWE[facility] [employer] [place] Discharge Planning Comments: CM MET WITH PT IN ROOM TO DISCUSS DISCHARGE PLANNING AND NEEDS. PT HAS BEEN SIGNED OFF WITH THERAPY SERVICES HERE. PT DOES NOT WANT TO GO TO A PENITENTIARY FACILITY FOR REHAB. PT WANTS HOME HEALTH WITH [facility] IN [place] SHE HAS FAMILY WORKING FOR THEM. CHOICE SIGNED. PT REPORTS HER SON WILL PICK HER UP FOR DISCHARGE HOME. IMPORTANT MESSAGE FROM MEDICARE PROVIDED AND EXPLAINED. PT STATES SHE WILL DISCUSS DISCHARGE OPTIONS WITH HER DAUGHTER AGAIN ON SUNDAY. CM TO ARRANGE HOME HEALTH WITH [facility] IN [place] WITH PHYSICIAN AGREEMENT AND ORDERS. Application Security Specialist: Prabhjot Piedra DCP- Discharge Planning Updated by [id number]: Prabhjot Piedra on 03/14/19 3:[address] Patient Name: CORTNEY IRELAND Admission Status: ER Accout number: [id number] Admission Date: 03-12-2019 : 1940 Admission Diagnosis:MALIGNANT PLEURAL EFFUSION Attending: ROGER PEREZ Current LOS: 2 Anticipated DC Date: Planned Disposition: Home with Home Health Primary Insurance: [employer] [facility] Discharge Planning Comments: CM MET WITH PT IN ROOM TO DISCUSS DISCHARGE PLANNING AND NEEDS. PT REPORTS LIVING AT HOME DEPENDENTLY FOR BATHING WITH SON AND SON'S . PT HAS BEDSIDE COMMODE, CANE AND WALKER WITH NO MEDICAL EQUIPMENT PROVIDER PREFERENCE. PT HAS NO OUTSIDE SERVICES ASSISTING IN THE HOME. CM DISCUSSED AVAILABILITY OF HOME HEALTH, REHAB SERVICES AND MEDICAL EQUIPMENT. PT WANTS HOME HEALTH WITH [facility] IN [place] SHE HAS FAMILY WORKING FOR THEM. CHOICE SIGNED. PT REPORTS HER SON WILL PICK HER UP FOR DISCHARGE HOME. IMPORTANT MESSAGE FROM MEDICARE PROVIDED AND EXPLAINED. CM TO ARRANGE HOME HEALTH WITH [facility] IN [place] WITH PHYSICIAN AGREEMENT AND ORDERS. Application Security Specialist: [facility] Planning Initial Assessment Updated by [id number]: Prabhjot Piedra on 03/14/19 4:51 pm * Is the patient Alert and Oriented? Yes * How many steps to enter\exit or inside your home? 0-O / 4-I * PCP [facility]OPEZ AT [facility] * Pharmacy [facility] IN [place] * Preadmission Environment Home with Family * ADLs Partial Dependent * Partial ADLs (Assistance needed) Bathing * Equipment Bedside Commode Cane Walker * Other Equipment NO MEDICAL EQUIPMENT PROVIDER PREFERNECE * List name and contact numbers for known caregivers / representatives who currently or will assist patient after discharge: LUKAS IRELAND, SPOUSE, * Verbal permission to speak to the caregivers and representatives has been obtained from the patient. N/A * Community resources currently utilized None * Please name any agencies selected above. NONE * Additional services required to return to the preadmission environment? No * Can the patient safely return to the preadmission environment? Yes * Has this patient been hospitalized within the prior 30 days at any hospital? Yes Coverage Notice Reviewer: [email or web address] Garibay Notice Issued Date-Time: 04/03/2019 12:22 Notice Type: Patient Choice Letter Notice Delivered To: Patient Relationship to Patient: Self Special Education Classroom Aide Name: Delivery Method: HAND - Hand Delivered Kennedi Days: Prior Verbal Notification: Recipient Understood Notice: Yes Recipient Signature: Yes Med Rec Note Co-signed by Attending: Coverage Notice Comment: COY for [facility], signed by daughterMaico per patient's request Reviewer: [id number] aGribay Notice Issued Date-Time: 04/03/2019 10:49 Notice Type: IM Discharge Notice Notice Delivered To: Patient Relationship to Patient: Self Special Education Classroom Aide Name: Delivery Method: HAND - Hand Delivered Kennedi Days: Prior Verbal Notification: Recipient Understood Notice: Yes Recipient Signature: Yes Med Rec Note Co-signed by Attending: Coverage Notice Comment: IMM explained, signed, given, copy placed in MR Reviewer: MIGUEL Piedra Notice Issued Date-Time: 03/14/2019 9:40 Notice Type: Patient Choice Letter Notice Delivered To: Patient Relationship to Patient: Special Education Classroom Aide Name: Delivery Method: HAND - Hand Delivered Kennedi Days: Prior Verbal Notification: Recipient Understood Notice: Yes Recipient Signature: Yes Med Rec Note Co-signed by Attending: Coverage Notice Comment: DEB FIELDS Reviewer: MIGUEL Piedra Notice Issued Date-Time: 03/28/2019 14:40 Notice Type: IM Discharge Notice Notice Delivered To: Patient Relationship to Patient: Special Education Classroom Aide Name: Delivery Method: HAND - Hand Delivered Kennedi Days: Prior Verbal Notification: Recipient Understood Notice: Yes Recipient Signature: Yes Med Rec Note Co-signed by Attending: Coverage Notice Comment: Reviewer: MIGUEL Piedra Notice Issued Date-Time: 03/14/2019 9:40 Notice Type: IM Discharge Notice Notice Delivered To: Patient Relationship to Patient: Special Education Classroom Aide Name: Delivery Method: HAND - Hand Delivered Kennedi Days: Prior Verbal Notification: Recipient Understood Notice: Yes Recipient Signature: Yes Med Rec Note Co-signed by Attending: Coverage Notice Comment: Last DP export: 04/03/19 11:11 a Patient Name: CORTNEY IRELAND Page [id number] at 1225 All edits/amendments must be made on the electronic document DICTATION DATE: 04/03/191223 FAIRING WORKER: CARMINE 04/03/19 1224 RPT#: [id number] DC DATE: STATUS: ADM IN [facility] [address] [place] [address] END OF REPORT
[2019-04-03 13:19] VITALS: BP 111/58
--- NOTE | 2019-04-03 15:46 | NUR ---
LEFT INFUSPORT DEACCESSED AFTER FLUSHED WITH 300 U HEP FLUSH.
--- NOTE | 2019-04-03 15:48 | MORECARE ---
CASE MANAGEMENT DISCHARGE SUMMARY PATIENT: CORTNEY IRELAND UNIT: [id number] ADM DATE: 03/12/19 AGE: 79 : 39 SEX: F ROOM/BED: D.2230 AUTHOR: MARCIAL,DOC PHYSICIAN: REFERRING PHYSICIAN: ROGER PEREZ MD DATE OF SERVICE: 04/03/19 Discharge Plan Patient Name: CORTNEY IRELAND Facility: [facility]:[place] : 1940 Planned Disposition: Home with Home Health Anticipated Discharge Date: Discharge Date: Expected LOS: Initial Reviewer: [id number] Initial Review Date: 03/14/2019 Generated: 04/03/19 4:48 pm Comments DCP- Discharge Planning Updated by [id number]: Dunia Garibay on 04/03/19 2:[address] Her portable oxygen is in the room. Her daughter states they are ready for discharge. I called Natasha with [facility] and they have all DME set up at her home and are ready to admit when she gets home. Her daughter is going to call when they get home. Home today with Hospice. DCP- Discharge Planning Updated by [id number]: Dunia Garibay on 04/03/19 11:[address] She is going to be discharged today. Daughter is at bedside. I discussed home health vs hospice with her and her daughter. Daughter states they have already discussed it and she would like to have [facility] in [place]. I called Natasha at [facility] and informed her she would also need oxygen, clinical faxed. Natasha states they use [facility] for oxygen and will order it from there. I called Ramila at [facility] to notify her that [facility] will be sending an order for oxygen and that she would need a portable prior to discharging here. CM will continue to follow and assist with discharge planning/needs. DCP- Discharge Planning Updated by [id number]: Prabhjot Piedra on 03/28/19 4:[address] Patient Name: CORTNEY IRELAND Encounter No: [id number] : 1940 Primary Insurance: [facility] MEDICARE SOLUTIONS Anticipated DC Date: Planned Disposition: Home with Home Health External Planned Provider[facility] Discharge Planning Comments: CM MET WITH PT IN ROOM TO DISCUSS DISCHARGE PLANNING AND NEEDS. PT HAS BEEN SIGNED OFF WITH THERAPY SERVICES HERE. PT DOES NOT WANT TO GO TO A [place] FACILITY FOR REHAB. PT WANTS HOME HEALTH WITH [facility] IN [place] SHE HAS FAMILY WORKING FOR THEM. CHOICE SIGNED. PT REPORTS HER SON WILL PICK HER UP FOR DISCHARGE HOME. IMPORTANT MESSAGE FROM MEDICARE PROVIDED AND EXPLAINED. PT STATES SHE WILL DISCUSS DISCHARGE OPTIONS WITH HER DAUGHTER AGAIN ON SUNDAY. CM TO ARRANGE HOME HEALTH WITH [facility] IN [place] WITH PHYSICIAN AGREEMENT AND ORDERS. Chief Load Dispatcher: Prabhjot Piedra [facility]- Discharge Planning Updated by [id number]: Prabhjot Piedra on 03/14/19 3:[address] Patient Name: CORTNEY IRELAND Admission Status: ER Accout number: [id number] Admission Date: 03-12-2019 : 1940 Admission Diagnosis:MALIGNANT PLEURAL EFFUSION Attending: ROGER PEREZ Current LOS: 2 Anticipated DC Date: Planned Disposition: Home with Home Health Primary Insurance: [facility] MEDIC[employer] SOLUTIONS PLANNED EXTERNAL PROVIDER: [facility] Discharge Planning Comments: CM MET WITH PT IN ROOM TO DISCUSS DISCHARGE PLANNING AND NEEDS. PT REPORTS LIVING AT HOME DEPENDENTLY FOR BATHING WITH SON AND SON'S . PT HAS BEDSIDE COMMODE, CANE AND WALKER WITH NO MEDICAL EQUIPMENT PROVIDER PREFERENCE. PT HAS NO OUTSIDE SERVICES ASSISTING IN THE HOME. CM DISCUSSED AVAILABILITY OF HOME HEALTH, REHAB SERVICES AND MEDICAL EQUIPMENT. PT WANTS HOME HEALTH WITH [facility] IN [place] SHE HAS FAMILY WORKING FOR THEM. CHOICE SIGNED. PT REPORTS HER SON WILL PICK HER UP FOR DISCHARGE HOME. IMPORTANT MESSAGE FROM MEDICARE PROVIDED AND EXPLAINED. CM TO ARRANGE HOME HEALTH WITH [facility] WITH PHYSICIAN AGREEMENT AND ORDERS. Chief Load Dispatcher: [facility] Initial Assessment Updated by [id number]: Prabhjot Piedra on 03/14/19 4:51 pm * Is the patient Alert and Oriented? Yes * How many steps to enter\exit or inside your home? 0-O / 4-I * PCP [facility] AT [facility] * Pharmacy [facility] IN [place] * Preadmission Environment Home with Family * ADLs Partial Dependent * Partial ADLs (Assistance needed) Bathing * Equipment Bedside Commode Cane Walker * Other Equipment NO MEDICAL EQUIPMENT PROVIDER PREFERNECE * List name and contact numbers for known caregivers / representatives who currently or will assist patient after discharge: LUKAS IRELAND, SPOUSE, * Verbal permission to speak to the caregivers and representatives has been obtained from the patient. N/A * Community resources currently utilized None * Please name any agencies selected above. NONE * Additional services required to return to the preadmission environment? No * Can the patient safely return to the preadmission environment? Yes * Has this patient been hospitalized within the prior 30 days at any hospital? Yes Coverage Notice Reviewer: [email or web address] Piedra Notice Issued Date-Time: 03/14/2019 9:40 Notice Type: IM Discharge Notice Notice Delivered To: Patient Relationship to Patient: Service Desk Lead Name: Delivery Method: HAND - Hand Delivered Kennedi Days: Prior Verbal Notification: Recipient Understood Notice: Yes Recipient Signature: Yes Med Rec Note Co-signed by Attending: Coverage Notice Comment: Reviewer: MIGUEL Piedra Notice Issued Date-Time: 03/14/2019 9:40 Notice Type: Patient Choice Letter Notice Delivered To: Patient Relationship to Patient: Service Desk Lead Name: Delivery Method: HAND - Hand Delivered Kennedi Days: Prior Verbal Notification: Recipient Understood Notice: Yes Recipient Signature: Yes Med Rec Note Co-signed by Attending: Coverage Notice Comment: [facility] Reviewer: [id number] Piedra Notice Issued Date-Time: 03/28/2019 14:40 Notice Type: IM Discharge Notice Notice Delivered To: Patient Relationship to Patient: Service Desk Lead Name: Delivery Method: HAND - Hand Delivered Kennedi Days: Prior Verbal Notification: Recipient Understood Notice: Yes Recipient Signature: Yes Med Rec Note Co-signed by Attending: Coverage Notice Comment: Reviewer: PANKAJ Garibay Notice Issued Date-Time: 04/03/2019 10:49 Notice Type: IM Discharge Notice Notice Delivered To: Patient Relationship to Patient: Self Service Desk Lead Name: Delivery Method: HAND - Hand Delivered Kennedi Days: Prior Verbal Notification: Recipient Understood Notice: Yes Recipient Signature: Yes Med Rec Note Co-signed by Attending: Coverage Notice Comment: IMM explained, signed, given, copy placed in MR Reviewer: PANKAJ Garibay Notice Issued Date-Time: 04/03/2019 12:22 Notice Type: Patient Choice Letter Notice Delivered To: Patient Relationship to Patient: Self Service Desk Lead Name: Delivery Method: HAND - Hand Delivered Kennedi Days: Prior Verbal Notification: Recipient Understood Notice: Yes Recipient Signature: Yes Med Rec Note Co-signed by Attending: Coverage Notice Comment: COY for [facility], signed by daughter, Maico per patient's request Last DP export: 04/03/19 11:25 a Patient Name: CORTNEY IRELAND Page [phone] at 1548 All edits/amendments must be made on the electronic document DICTATION DATE: 04/03/191546 LIME KILN OPERATOR: CARMINE 04/03/191546 RPT#: [id number] DC DATE: STATUS: ADM IN [facility] [address] [place] [address] END OF REPORT
--- NOTE | 2019-04-03 16:04 | NUR ---
DC HOME AT THIS TIME DC SUMMARY EXPLAINED TO DAUGHTER AND PT. BOTH VOICE UNDERSTANDING OF ORDERS. STABLE CONDITION UPON DEPARTURE.
== END 2019-04-03 16:05 | disposition home health service (06) | DRG 180 ==
LOC: D.ER 02:00 → D.MS 02:27 → D.M2 02:27 → D.MS 03-31 19:38
PROVIDERS: Family Medicine; General Practice; Internal Medicine Cardiovascular Disease; Internal Medicine Hematology & Oncology; Surgery; ADMIT Internal Medicine Nephrology; ATTEND Internal Medicine Nephrology
PROC: 0W993ZZ Drainage of Right Pleural Cavity, Percutaneous Approach (ICD-10-PCS; 2019-03-17)
PROC: 05H633Z Insertion of Infusion Device into Left Subclavian Vein, Percutaneous Approach (ICD-10-PCS; 2019-03-17)
PROC: 0JH60XZ Insertion of Tunneled Vascular Access Device into Chest Subcutaneous Tissue and Fascia, Open Approach (ICD-10-PCS; principal; 2019-03-17 09:31)
PROC: 0BD18ZX Extraction of Trachea, Via Natural or Artificial Opening Endoscopic, Diagnostic (ICD-10-PCS; 2019-03-26)
PROC: 0B9C8ZX Drainage of Right Upper Lung Lobe, Via Natural or Artificial Opening Endoscopic, Diagnostic (ICD-10-PCS; 2019-03-26)
DX: C34.90 Malignant neoplasm of unspecified part of unspecified bronchus or lung (principal); I50.23 Acute on chronic systolic (congestive) heart failure; J91.0 Malignant pleural effusion; N17.9 Acute kidney failure, unspecified; I11.0 Hypertensive heart disease with heart failure; E87.6 Hypokalemia; I25.5 Ischemic cardiomyopathy; J44.9 Chronic obstructive pulmonary disease, unspecified; E78.5 Hyperlipidemia, unspecified; F41.9 Anxiety disorder, unspecified; I25.10 Atherosclerotic heart disease of native coronary artery without angina pectoris